=== PATIENT | female | born 1950 | race Caucasian/White ===

== ENCOUNTER → 2016-08-02 | Outpatient (CLI) | payer BC ==
[~2016-08-02] MED LIST: ASCA500 PO; B-COCAP2 PO; CHOL100010 PO; CHOL1CAP95 PO; CLON0.5T3 PO; CLTP PO; CRAN1CAP15 PO; CYAN3INJ; CYM60 PO; DICL1GEL12 TOP; GLAT1INJ INJ; LEVO125T4 PO; LYR50 PO; METH1CAP20 PO; METR0.754 TOP; MIRA1TAB3 PO; MULT-506 PO; RTL10 PO; SPIR50TA3 PO; [UNRECOGNIZED DRUG - REMARK] PO
== END | disposition home or self-care (01) ==
LOC: C.LABMFLN 09:13
PROVIDERS: ATTEND Internal Medicine
DX: E53.8 Deficiency of other specified B group vitamins (principal)

== ENCOUNTER → 2016-09-16 | Outpatient (CLI) | payer BC ==
--- NOTE | 2016-09-16 10:31 | DIAGNOSTIC IMAGING REPORT ---
THYROID ULTRASOUND HISTORY: Thyroid nodule. COMPARISON: Thyroid ultrasound 09/26/2015. FINDINGS: Right lobe: 4.3 x 1.4 x 1.2 cm. There are 3 hypoechoic nodules with the largest in the upper pole measuring 7 x 6 mm. Left lobe: 4.1 x 1.4 x 1.2 cm. There are 3 hypoechoic nodules/cysts with the largest in the interpolar region measuring 8 x 6 x 5 mm. Isthmus: 2 mm in thickness No nodules. IMPRESSION: Slight decrease in size in the 8 x 6 x 5 mm hypoechoic nodule within the left thyroid lobe. Remaining subcentimeter thyroid nodules remain unchanged. Electronically signed by: Thomas Jhaveri M.D. 09/16/2016 10:30 AM Dictated Date/Time: 09/16/2016 10:27 AM
== END | disposition home or self-care (01) ==
LOC: C.ULTR 09:33
PROVIDERS: ATTEND Internal Medicine
DX: E04.2 Nontoxic multinodular goiter (principal)

== ENCOUNTER → 2016-09-20 | Outpatient (CLI) | payer BC ==
[~2016-09-20] MED LIST changes: +OPTIRAY 320 IV PRN
--- NOTE | 2016-09-20 11:03 | DIAGNOSTIC IMAGING REPORT ---
CHEST CTA for PULMONARY ARTERIES CT DOSE: 575.03 mGy.cm HISTORY: Chest pain dyspnea TECHNIQUE: Multiaxial CT images of the chest were performed following the intravenous administration of contrast to evaluate the pulmonary arteries. Maximal intensity projection images were also obtained. COMPARISON STUDY: None. FINDINGS: There is a normal caliber thoracic aorta with no evidence for dissection. There is no evidence for pulmonary embolus. No pleural effusions. No pneumothorax. The liver and spleen are unremarkable. No mediastinal or hilar lymphadenopathy. The central airways are patent. The lungs are clear. IMPRESSION: No evidence for pulmonary embolus. Electronically signed by: Jordan Amador M.D. 09/20/2016 11:01 AM Dictated Date/Time: 09/20/2016 11:00 AM
== END | disposition home or self-care (01) ==
LOC: C.CTS 10:20
PROVIDERS: ATTEND Internal Medicine
DX: I26.99 Other pulmonary embolism without acute cor pulmonale (principal)

== ENCOUNTER → 2016-09-27 | Outpatient (CLI) | payer BC ==
[~2016-09-27] MED LIST changes: -OPTIRAY 320 IV PRN
--- NOTE | 2016-09-28 08:02 | MAMMOGRAPHY REPORT ---
BILATERAL DIGITAL SCREENING MAMMOGRAM TOMOSYNTHESIS WITH CAD: 09/27/2016 CLINICAL HISTORY: Routine screening examination. TECHNIQUE: Breast tomosynthesis in addition to standard 2D mammography was performed. Current study was also evaluated with a Computer Aided Detection (CAD) system. COMPARISON: Comparison is made to exams dated: 09/25/2015 mammogram, 08/14/2013 mammogram, 09/24/2014 ma mmogram, 08/01/2012 mammogram, 07/27/2011 mammogram, and 07/07/2010 mammogram - [facility]ter. BREAST COMPOSITION: There are scattered areas of fibroglandular density in both breasts. FINDINGS: There are stable benign coarse calcifications bilaterally. A stable oval circumscribed 14 mm mass with associated coarse calcification in the upper outer posterior left breast is unchanged in size dating back to at least 2006, most likely a degenerating fibroadenoma. No new suspicious ma ss, architectural distortion or cluster of microcalcifications is seen. IMPRESSION: ACR BI-RADS CATEGORY 1: NEGATIVE There is no mammographic evidence of malignancy. A 1 year screening mammogram is recommended. The p atient will receive written notification of the results. Approximately 10% of breast cancers are not detected with mammography. A negative mammographic repor t should not delay biopsy if a clinically suggestive mass is present. Marilynn Plascencia M.D. ay/:09/27/2016 21:36:44 Sales Effectiveness Manager: Sheeba ESPINOZA)(Dru), [facility] letter sent: Normal 1/2 BI-RADS Code: ACR BI-RADS Category 1: Negative
== END | disposition home or self-care (01) ==
LOC: C.MAMM 10:43
PROVIDERS: ATTEND Obstetrics & Gynecology
DX: Z12.31 Encounter for screening mammogram for malignant neoplasm of breast (principal)

== ENCOUNTER → 2016-11-08 | Outpatient (CLI) | payer BC ==
[~2016-11-08] MED LIST changes: -LEVO125T4 PO; +LEVO125T5 PO
[2016-11-08 15:00] LABS: BASO % 0.2 %; BASO ABS # 0.01 K/uL (0-0.2); COMPLETE YES; EOS % 1.1 %; HEMATOCRIT 40.2 % (37-47); IG% 0.2 %; LYMPH % 19.6 %; LYMPH ABS # 1.21 K/uL (1.2-3.4); MEAN CELL VOLUME 93.9 fL (80-100); MEAN CORPUSCULAR HEMOGLOBIN 31.8 pg (25-34); MEAN CORPUSCULAR HGB CONC 33.8 g/dl (32-36); MEAN PLATELET VOLUME 13.3 fL (7.4-10.4); MONO % 6.5 %; NEUT % 72.4 %; PLATELET COUNT 178 K/uL (130-400); RED BLOOD COUNT 4.28 M/uL (4.2-5.4); WHITE BLOOD COUNT 6.18 K/uL (4.8-10.8)
[2016-11-08 15:45] LABS: ALT/SGPT 33 U/L (12-78); AST/SGOT 22 U/L (15-37); BLOOD UREA NITROGEN 14 mg/dl (7-18); BUN/CREATININE RATIO 18.4 (10-20); CALCIUM 8.4 mg/dl (8.5-10.1); CARBON DIOXIDE 25 mmol/L (21-32); CHLORIDE 112 mmol/L (98-107); CREATININE 0.74 mg/dl (0.60-1.20); GLUCOSE 157 mg/dl (70-99); POTASSIUM 3.6 mmol/L (3.5-5.1); SODIUM 147 mmol/L (136-145)
[2016-11-08 15:55] LABS: ALB/GLOB RATIO 1.3 (0.9-2); ALKALINE PHOSPHATASE 79 U/L (45-117)
== END | disposition home or self-care (01) ==
LOC: C.LAB1850 14:03
PROVIDERS: ATTEND Internal Medicine
DX: E03.9 Hypothyroidism, unspecified (principal); G62.9 Polyneuropathy, unspecified; I82.409 Acute embolism and thrombosis of unspecified deep veins of unspecified lower extremity; E55.9 Vitamin D deficiency, unspecified

== ENCOUNTER → 2016-12-13 | Outpatient (CLI) | payer BC | END | disposition home or self-care (01) | LOC: C.LABSPEC 13:21 | PROVIDERS: ATTEND Obstetrics & Gynecology | DX: N76.0 Acute vaginitis (principal) ==

== ENCOUNTER → 2017-01-14 | Outpatient (CLI) | payer BC ==
--- NOTE | 2017-01-14 10:40 | DIAGNOSTIC IMAGING REPORT ---
THORACIC SPINE 3 VIEWS HISTORY: Upper back pain. COMPARISON: Chest CT 09/20/2016. FINDINGS: No fracture or subluxation within the thoracic spine. Paraspinal soft tissues are unremarkable. Anterior cervical spine fusion hardware is again noted. Mild degenerative disc disease within the mid to lower thoracic spine, unchanged. IMPRESSION: No fracture or subluxation within the thoracic spine. Electronically signed by: Thomas Jhaveri M.D. 01/14/2017 10:39 AM Dictated Date/Time: 01/14/2017 10:36 AM
== END ==
LOC: C.RAD1850 10:13
PROVIDERS: ATTEND Internal Medicine
DX: M54.6 Pain in thoracic spine (principal)

== ENCOUNTER → 2017-01-19 | Outpatient (CLI) | payer BC ==
[~2017-01-19] MED LIST changes: +LEVO125T4 PO; -LEVO125T5 PO
--- NOTE | 2017-01-19 12:12 | DIAGNOSTIC IMAGING REPORT ---
BACK/CHEST ULTRASOUND CLINICAL HISTORY: Thoracic back pain. Painful lump. COMPARISON STUDY: Chest CT September 20, 2016. TECHNIQUE: Sonography of the lower back was performed at site of maximal pain and palpable abnormality. FINDINGS: No sonographic abnormality was identified at site of maximal pain. Specifically, no mass, fluid collection or other sonographic abnormality was identified. IMPRESSION: No sonographic abnormality to correspond to the site of maximal pain. Electronically signed by: Ruben Austin M.D. 01/19/2017 12:10 PM Dictated Date/Time: 01/19/2017 12:09 PM
== END | disposition home or self-care (01) ==
LOC: C.ULTRBC 11:16
PROVIDERS: ATTEND Internal Medicine
DX: M54.6 Pain in thoracic spine (principal)

== ENCOUNTER → 2017-02-18 | Outpatient (CLI) | payer BC ==
--- NOTE | 2017-02-18 14:56 | DIAGNOSTIC IMAGING REPORT ---
BONE SCAN WHOLE BODY CLINICAL HISTORY: Diffuse joint pain. Thoracic back pain. Multiple sclerosis. Arthritis. COMPARISON STUDY: Thoracic spine radiographs January 14, 2017. TECHNIQUE: 26.7 mCi of technetium 99m MDP was injected IV at 11:15 AM on February 18, 2017. 3 hours following injection, whole body imaging was performed in the anterior and posterior projections. FINDINGS: Expected soft tissue and renal activity is present. Marked focal uptake within the right first metatarsophalangeal joint is degenerative. Moderate uptake within the left first metatarsophalangeal joint is likely degenerative. Uptake within the left knee is degenerative. A right knee arthroplasty is noted. Moderate uptake within the shoulders, right greater than left, is degenerative. There is minimal uptake within the thoracic and lumbar spines which is likely degenerative. No suspicious radiotracer uptake is identified. Uptake projecting over the perineum is likely due to urine leakage. IMPRESSION: 1. Multifocal radiotracer uptake suggestive of osteoarthritis involving the bilateral first metatarsophalangeal joints, shoulders and left knee. 2. Minimal thoracic and lumbar spine uptake is degenerative. No significant abnormal radiotracer uptake within the spine. Electronically signed by: Ruben Austin M.D. 02/18/2017 2:54 PM Dictated Date/Time: 02/18/2017 2:50 PM
== END | disposition home or self-care (01) ==
LOC: C.NUCL 10:57
PROVIDERS: ATTEND Internal Medicine
DX: G35 Multiple sclerosis (principal); M19.90 Unspecified osteoarthritis, unspecified site; M47.816 Spondylosis without myelopathy or radiculopathy, lumbar region; M54.6 Pain in thoracic spine

== ENCOUNTER → 2017-03-03 | Outpatient (CLI) | payer BC ==
--- NOTE | 2017-03-03 12:39 | DIAGNOSTIC IMAGING REPORT ---
LEFT LOWER EXT JOINT WITHOUT CLINICAL HISTORY: 66 years-old Female with chronic left-sided hip pain for multiple years. No reported trauma. COMPARISON: Bone scan 02/18/2017, CT abdomen and pelvis 03/17/2011, hip radiographs 05/25/2009. TECHNIQUE: Multiplanar, multi sequence MRI of the left hip was performed without intravenous contrast. FINDINGS: Large field view telephone clerk images demonstrate fusion hardware at the L3-L4 level. No gross abnormality of the abdomen or pelvis is identified. LABRUM: There is a tear of the anterior superior labrum on the left without definite labral cyst, nicely demonstrated on image 13 of the coronal T2 series and image 12 of the coronal PD small [id number]. No definite tear of the right labrum is identified. BONE MARROW: There is mild bone marrow edema noted involving the superolateral acetabulum adjacent to the labral tear, likely reactive. No associated fracture. There is heterogeneity of the bone marrow involving the pelvis and bilateral femora, likely sequela of osteoporosis. No suspicious bone lesions or fractures are identified. BURSAE: There is moderate to extensive amount of edema and fluid adjacent to the right greater trochanter compatible with trochanteric bursitis. Trace edema is noted adjacent to the left greater trochanter, likely reactive changes. No definite gluteal tendon tear is identified. No evidence of iliopsoas bursitis. HIP JOINT: Moderate osteoarthritis involves the bilateral femoral acetabular joints with joint space narrowing and mild marginal spurring. Mild cartilaginous thinning is also seen bilaterally. Physiologic amount of fluid is seen within the bilateral hip joints. No definite articular loose body. There is no evidence for femoral-acetabular or ischiofemoral impingement syndrome. MUSCLES: Muscular signal and morphology is within normal limits. There is thickening of the common hamstring attachment sites bilaterally with intermediate T2 signal compatible with tendinosis without high-grade tear. SCIATIC NERVE: The morphology and signal characteristics of the sciatic nerve appear normal. IMPRESSION: 1. 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 Likely reactive associated mild bone marrow edema involves the left superior lateral acetabulum without fracture. 2. Moderate to extensive right trochanteric bursitis. 3. Mild peritendinous edema is noted adjacent to the left greater trochanter, likely reactive. The above report was generated using voice recognition software. It may contain grammatical, syntax or spelling errors. Electronically signed by: Huey Salguero M.D. 03/03/2017 12:37 PM Dictated Date/Time: 03/03/2017 12:23 PM
== END | disposition home or self-care (01) ==
LOC: C.MRI 11:06
PROVIDERS: ATTEND Orthopaedic Surgery
DX: M25.552 Pain in left hip (principal); M16.0 Bilateral primary osteoarthritis of hip; M70.61 Trochanteric bursitis, right hip

== ENCOUNTER → 2017-04-19 | Outpatient (CLI) | payer BC ==
--- NOTE | 2017-04-19 17:20 | DIAGNOSTIC IMAGING REPORT ---
MRI LUMBAR SPINE W/O CONTRAST CLINICAL HISTORY: Low back pain with bilateral leg radiculopathy. TECHNIQUE: Sagittal and axial T1, T2 and STIR images were obtained. COMPARISON STUDY: MRI performed February 10, 2010 OBSERVATIONS: The vertebral bodies and posterior elements appear intact. There is no abnormal bony signal present to suggest a marrow replacement process. There is artifact secondary to a posterior spinal fusion performed at the L3-4 level. L1-2: No disc protrusions or extrusions. No evidence of spinal canal or neural foraminal compromise. There is a T2 bright right renal lesion, statistically representing a cyst. L2-3: There is a circumferential disc bulge with mild to moderate spinal stenosis, most pronounced just inferior to the disc level.. There is no significant foraminal narrowing. L3-4: There are postsurgical changes at this level. There is artifact secondary to a posterior spinal fusion with L3 and L4 pedicle screws. L4-5: There are postsurgical changes of a discectomy and interbody fusion. There are postlaminectomy changes. There is no recurrent disc herniation. There is no spinal stenosis at the disc level itself. Just superior to the disc level there is mild spinal canal narrowing due to facet joint arthropathy L5-S1: No disc protrusions or extrusions. No evidence of spinal canal or neural foraminal compromise. The conus medullaris and cauda equina appear normal. IMPRESSION: 1. Interval surgery at the L3-4, and L4-5 levels. 2. L2-3 disc bulge with ligamentous hypertrophy and mild to moderate spinal stenosis, most pronounced just inferior to the disc itself.. Electronically signed by: Deny June M.D. 04/19/2017 5:19 PM Dictated Date/Time: 04/19/2017 5:12 PM
== END | disposition home or self-care (01) ==
LOC: C.MRIBC 16:05
PROVIDERS: ATTEND Orthopaedic Surgery Orthopaedic Surgery of the Spine
DX: M51.26 Other intervertebral disc displacement, lumbar region (principal); M51.36 Other intervertebral disc degeneration, lumbar region; M48.06 Spinal stenosis, lumbar region

== ENCOUNTER → 2017-04-22 | Outpatient (CLI) | payer BC ==
--- NOTE | 2017-04-22 10:42 | DIAGNOSTIC IMAGING REPORT ---
MRI OF THE BRAIN WITHOUT AND WITH IV CONTRAST CLINICAL HISTORY: Multiple sclerosis COMPARISON STUDY: 12/06/2015 TECHNIQUE: MRI of the brain was performed from the vertex to the skull base utilizing various T1 and T2 weighted sequences. Following the IV administration of 10 mL of Gadavist contrast, additional enhanced images were obtained. FINDINGS: Sagittal T1, axial diffusion, proton density and T2 weighted axial, coronal FLAIR, and pre and post axial T1-weighted images were acquired. These were supplemented with post gadolinium coronal T1 weighted images. No intra or extra-axial mass lesions are visualized. Axial diffusion-weighted images reveal no evidence of acute or subacute infarction. There is no evidence of ventricular dilatation. Proton density T2-weighted and FLAIR images reveal scattered nonspecific foci of increased T2 signal and FLAIR signal within the white matter. The findings remain similar to the preceding examination. There are no abnormal flow voids. There is no evidence of pathologic enhancement. IMPRESSION: 1. No significant change compared the preceding study 2. No evidence of intracranial mass 3. No evidence of acute or subacute infarction 4. Stable nonspecific foci of increased T2 and FLAIR signal within the white matter. While the lesions may be secondary to multiple sclerosis given the clinical history, small vessel ischemic change could appear similar. Electronically signed by: Deny June M.D. 04/22/2017 10:41 AM Dictated Date/Time: 04/22/2017 10:36 AM
--- NOTE | 2017-04-22 10:48 | DIAGNOSTIC IMAGING REPORT ---
CERVICAL SPINE COMBO CLINICAL HISTORY: 66 years-old Female presenting with MS. TECHNIQUE: Multisequence, multiplanar MR imaging of the cervical spine was performed before and after the administration of intravenous contrast. IV contrast: 10 mL of Gadavist. COMPARISON: 04/07/2016. FINDINGS: Localizer images: Unremarkable. Normal cervical lordosis. Anterior cervical discectomy and fusion at C5-6 with interbody spacer. This is unchanged in appearance from prior. Nonoperative levels demonstrate normal vertebral body heights, alignment, and bone marrow signal intensity. Intervertebral discs at the nonoperative levels are preserved although small disc osteophyte complexes are noted at C3-4, C4-5, C6-7, and T2-3. Degenerative changes further detailed below: C2-3: No significant spinal canal or neural foraminal narrowing. C3-4: Mild left neural foraminal narrowing secondary to uncovertebral hypertrophy and disc osteophyte complex. No significant spinal canal narrowing. C4-5: Mild effacement of the ventral thecal sac secondary to the disc osteophyte complex. No significant spinal canal or neural foraminal narrowing. Minimal abnormal signal intensity at the spinal cord at this level is grossly unchanged. C5-6: No significant spinal canal or neural foraminal narrowing. Left eccentric abnormal spinal cord signal intensity along the posterior lateral aspect, unchanged. C6-7: No significant spinal canal or neural foraminal narrowing. The spinal cord at this level demonstrates minimal atrophy with increased signal intensity predominantly along the paramedian posterior aspect, unchanged from prior. C7-T1: No significant spinal canal or neural foraminal narrowing. No abnormal spinal cord enhancement. Previously noted enhancing mass along the right aspect of the spinal cord at C2-3 is intradural extra medullary and unchanged in size from prior. Paraspinal soft tissues demonstrate mild interspinous edema at C5-6 and C6-7, likely indicating degenerative change or sprain. IMPRESSION: 1. No new abnormal spinal cord signal intensity. Stable multifocal white matter lesions in the cervical spinal cord as on prior exam. No enhancement to suggest active demyelination. 2. Postsurgical changes of anterior cervical discectomy and fusion at C5-6. 3. Mild multilevel degenerative changes with mild left neural foraminal narrowing at C3-4. No significant spinal canal stenosis. 4. Stable appearance of the intradural, extramedullary mass along the right aspect of the spinal cord at C2-3. This is unchanged since 2008 and most likely represents a small meningioma or schwannoma. Electronically signed by: Wilbur River M.D. 04/22/2017 10:47 AM Dictated Date/Time: 04/22/2017 10:36 AM
== END | disposition home or self-care (01) ==
LOC: C.MRIBC 08:44
PROVIDERS: ATTEND Psychiatry & Neurology Neurology
DX: G35 Multiple sclerosis (principal); G95.9 Disease of spinal cord, unspecified

== ENCOUNTER → 2017-06-07 | Outpatient (CLI) | payer BC ==
[~2017-06-07] MED LIST changes: -LEVO125T4 PO; +LEVO125T5 PO
== END | disposition home or self-care (01) ==
LOC: C.LABBC 11:20
PROVIDERS: ATTEND Obstetrics & Gynecology
DX: N64.52 Nipple discharge (principal)

== ENCOUNTER → 2017-06-14 | Outpatient (CLI) | payer BC ==
--- NOTE | 2017-06-14 14:31 | MAMMOGRAPHY REPORT ---
UNILATERAL LEFT DIGITAL DIAGNOSTIC MAMMOGRAM TOMOSYNTHESIS WITH CAD AND TARGETED LEFT ULTRASOUND: CLINICAL HISTORY: The patient reports that her left nipple is intermittently inverted. She also repo rts an episode of cream-colored, crusty left nipple discharge with a drop of blood also noted approxi mately 1.5 weeks ago. Her prolactin level was tested and was normal. She has had no further episode s of nipple discharge. TECHNIQUE: Breast tomosynthesis in addition to standard 2D mammography was performed. Current study was also evaluated with a Computer Aided Detection (CAD) system. Left CC and MLO 2-D and tomosynthes is images and spot magnification left CC and ML views were obtained. COMPARISON: Comparison is made to exams dated: 09/27/2016 mammogram, 09/25/2015 mammogram, 09/24/2014 mamm ogram, 08/14/2013 mammogram, 08/01/2012 mammogram, and 07/27/2011 mammogram - [facility] . BREAST COMPOSITION: There are scattered areas of fibroglandular density in the left breast. FINDINGS: There are no suspicious masses, calcifications, or areas of architectural distortion noted in the left breast. There has been no significant interval change compared to prior exams. Scattere d benign-appearing left breast calcifications are not significantly changed. A benign-appearing circ umscribed mass with associated coarse calcifications in the left upper outer quadrant is stable and c ompatible with a degenerating fibroadenoma. Spot magnification views of the subareolar breast demons trate no suspicious masses or calcifications. Targeted ultrasound was performed of the left subareolar breast. No intraductal mass or other suspic ious sonographic abnormality is evident. IMPRESSION: ACR BI-RADS CATEGORY 2: BENIGN, TARGETED ULTRASOUND ACR BI-RADS CATEGORY 2: BENIGN No intraductal mass or other mammographic or sonographic abnormality seen within the left subareolar breast. There is no mammographic or targeted sonographic evidence of malignancy. Recommend clinical follow-up for left nipple discharge and intermittent left nipple inversion; if the patient has contin ued nipple discharge, consider cytologic analysis of the nipple discharge or surgical consultation. Return to annual mammogram screening schedule is also recommended, due September 2017. The patient has been verbally notified of the results. Approximately 10% of breast cancers are not detected with mammography. A negative mammographic report should not delay biopsy if a clinically suggestive mass is present. Lucero Juares M.D. ah/:06/14/2017 11:57:35 Electric Plater: Shayy ESPINOZA)(Dru), [facility] letter sent: Normal 1/2 BI-RADS Code: ACR BI-RADS Category 2: Benign Ultrasound BI-RADS: ACR BI-RADS Category 2: Benign
== END | disposition home or self-care (01) ==
LOC: C.MAMM 10:20
PROVIDERS: ATTEND Obstetrics & Gynecology
DX: N64.59 Other signs and symptoms in breast (principal); N64.52 Nipple discharge

== ENCOUNTER → 2017-08-01 | Outpatient (CLI) | payer BC | END | disposition home or self-care (01) | LOC: C.LABSPEC 17:12 | PROVIDERS: ATTEND Obstetrics & Gynecology | DX: N76.0 Acute vaginitis (principal) ==

== ENCOUNTER 2017-09-25 13:24 | Emergency (ER) | payer BC ==
[~2017-09-25] VITALS: Ht 170.2 cm; Wt 109.0 kg
[2017-09-25 13:39] VITALS: TEMP 36.5; Ht 170.2 cm; Wt 109.0 kg
[2017-09-25 14:19] LABS: BASO % 0.2 %; BASO ABS # 0.01 K/uL (0-0.2); EOS % 0.8 %; EOS ABS # 0.04 K/uL (0-0.5); HEMATOCRIT 44.4 % (37-47); HEMOGLOBIN 15.1 g/dL (12.0-16.0); IG# 0.01 K/uL (0.00-0.02); LYMPH % 21.7 %; LYMPH ABS # 1.15 K/uL (1.2-3.4); MEAN CELL VOLUME 93.7 fL (80-100); MEAN CORPUSCULAR HEMOGLOBIN 31.9 pg (25-34); MEAN PLATELET VOLUME 12.1 fL (7.4-10.4); MONO % 9.2 %; MONO ABS # 0.49 K/uL (0.11-0.59); NEUT % 67.9 %; PLATELET COUNT 200 K/uL (130-400); RED CELL DISTRIBUTION WIDTH CV 14.1 % (11.5-14.5)
[2017-09-25 14:34] LABS: ALBUMIN 3.7 gm/dl (3.4-5.0); CALCIUM 8.9 mg/dl (8.5-10.1); CREATININE 0.84 mg/dl (0.60-1.20); POTASSIUM 3.8 mmol/L (3.5-5.1)
[2017-09-25 14:46] LABS: PTT PATIENT 28.7 SECONDS (21.0-31.0)
[2017-09-25] MEDS ORDERED: CRAN400C PO (14:50)
[2017-09-25] MEDS ORDERED: MIRA1TAB3 PO (14:50)
[2017-09-25] MEDS ORDERED: NYST1POW7 TOP (14:50)
[2017-09-25] MEDS ORDERED: PREG200C PO (14:50)
[2017-09-25] MEDS ORDERED: CLON1TAB3 PO (14:50)
[2017-09-25] MEDS ORDERED: TURM1CAP4 PO (14:50)
[2017-09-25] MEDS ORDERED: CHOL2000 PO (14:50)
[2017-09-25] MEDS ORDERED: MAGN400T6 PO (14:50)
[2017-09-25] MEDS ORDERED: B-COTAB18 PO (14:50)
[2017-09-25] MEDS ORDERED: CALC-354 PO (14:50)
[2017-09-25] MEDS ORDERED: CYNI1000 IM (14:50)
[2017-09-25] MEDS ORDERED: ESTCR PV (14:50)
[2017-09-25] MEDS ORDERED: RIVA1TAB4 PO (14:50)
[2017-09-25] MEDS ORDERED: AMPH30CA3 PO (14:50)
[2017-09-25] MEDS ORDERED: ERGO500011 PO (14:50)
[2017-09-25] MEDS ORDERED: ESCI1TAB10 PO (14:50)
--- NOTE | 2017-09-25 15:05 | DIAGNOSTIC IMAGING REPORT ---
ULTRASOUND LEFT LOWER EXTREMITY VENOUS CLINICAL HISTORY: Left calf pain and swelling. COMPARISON STUDY: Left lower extremity venous ultrasound dated 02/26/2016. TECHNIQUE: Real-time, grayscale, and color Doppler sonography of the deep veins of the left lower extremity was performed from the inguinal crease to the calf. Compression and augmentation were utilized. FINDINGS: There is no sonographic evidence of deep venous thrombosis identified in the left lower extremity. The common femoral, superficial femoral, and popliteal veins are patent and normally compressible. The greater saphenous vein and the profunda femoris vein at the junction with the common femoral vein are clear. The visualized calf veins are patent. IMPRESSION: There is no sonographic evidence of deep venous thrombosis identified in the left lower extremity. Electronically signed by: Gerard Mccarty M.D. 09/25/2017 3:04 PM Dictated Date/Time: 09/25/2017 3:04 PM
--- NOTE | 2017-09-25 15:25 | EMERGENCY ROOM VISIT NOTE ---
ED Visit Note First contact with patient: 13:45 CHIEF COMPLAINT: Left calf swelling and pain, "I might have a blood clot" HISTORY OF PRESENT ILLNESS: This 66-year-old female patient presents to the emergency department, ambulatory, complaining of pain in her posterior left calf. The patient states the pain is associated with swelling and one specific area. She does report a history of phlebitis with deep vein thrombosis and multiple massive pulmonary emboli in 2016. The patient states she did not notice the pain or swelling yesterday while shaving her legs, but noticed that this morning upon awakening. The patient states the swelling is new and different than normal swelling she experiences in her legs associated with phlebitis. The patient does report some mild erythema, but is uncertain if this is due to her chronic edema or new. She describes the swelling is different than when she experienced the DVT in her popliteal vein. She states that DBT felt ropelike, and this swelling is wider and more painful to the touch. She denies any open wounds or recent injury to the area. She rates her pain sharp to the touch and 3/10. She denies any chest pain, difficulty breathing, significant leg swelling, inability to ambulate, recent illness, or other associated symptoms. The patient is currently on Xarelto. She states she did recently travel to the [facility], but did stop at least once in the [address]. She is not currently on any hormone therapy. REVIEW OF SYSTEMS: A 10 system review of systems was performed with positives and pertinent negatives listed in the history of present illness. All other systems were reviewed and are negative. ALLERGIES: Adhesives, morphine, oxycodone, tetracycline, loratadine, ropinirole , sulfa PMH: DVT, PE, anxiety, hypothyroidism SOCIAL HISTORY: The patient lives locally with family. She denies drug, alcohol , tobacco use. PHYSICAL EXAM: VITALS: Vitals are noted on the nurse's note and reviewed by myself. Vital signs stable. GENERAL: This is a 66-year-old obese white female, in no acute distress, nondiaphoretic, well-developed well-nourished. SKIN: Soft tissue swelling in the posterior left calf measuring approximately 5 cm in length by 3 cm in width. This area is not erythematous. It is not fluctuant or indurated. There is no drainage noted. The skin was without rashes or bruising. There is no tenting of the skin. Capillary reflex less than 2 seconds. HEAD: Normocephalic atraumatic. EARS: External auditory canals clear, tympanic membranes pearly conley without erythema or effusion bilaterally. EYES: Pupils equal round and reactive to light and accommodation. Conjunctivae without injection, sclerae without icterus. Extraocular movements intact. NOSE: Patent, turbinates without inflammation or discharge. No sinus tenderness. MOUTH: Mucous membranes moist. Tonsils are not enlarged. Pharynx without erythema or exudate. Uvula midline. Airway patent. Tongue does not deviate. NECK: Supple without nuchal rigidity. No lymphadenopathy. No thyromegaly. Cervical spine is nontender. No JVD. HEART: Regular rate and rhythm without murmurs gallops or rubs. LUNGS: Clear to auscultation bilaterally without wheezes, rales or rhonchi. No dullness to percussion. No retractions or accessory muscle use. ABDOMEN: Positive bowel sounds x 4. Normal tympanic percussion. Soft, nontender, without masses or organomegaly. Kelley sign negative. No guarding or rebound tenderness. MUSCULOSKELETAL: Edema of bilateral lower extremities. There is some mild erythema diffusely over the posterior left calf. There is also erythema in the posterior right calf. Possibly Left slightly greater than right. No muscle atrophy noted. Full range of motion without joint tenderness in all extremities. Tenderness to palpation of the left posterior calf in the area of the soft swelling noted. Normal gait. Strength 5/5 throughout. NEURO: Patient was alert and oriented to person place and time. Normal sensation to light and sharp touch. Deep tendon reflexes 2+ throughout. No focal neurological deficits. RADIOLOGY: ULTRASOUND LEFT LOWER EXTREMITY VENOUS CLINICAL HISTORY: Left calf pain and swelling. COMPARISON STUDY: Left lower extremity venous ultrasound dated 02/26/2016. TECHNIQUE: Real-time, grayscale, and color Doppler sonography of the deep veins of the left lower extremity was performed from the inguinal crease to the calf. Compression and augmentation were utilized. FINDINGS: There is no sonographic evidence of deep venous thrombosis identified in the left lower extremity. The common femoral, superficial femoral, and popliteal veins are patent and normally compressible. The greater saphenous vein and the profunda femoris vein at the junction with the common femoral vein are clear. The visualized calf veins are patent. IMPRESSION: There is no sonographic evidence of deep venous thrombosis identified in the left lower extremity. Electronically signed by: Gerard Mccarty M.D. 09/25/2017 3:04 PM Dictated Date/Time: 09/25/2017 3:04 PM EMERGENCY DEPARTMENT COURSE: The patient was seen and evaluated as above. IV access obtained and labs drawn. Ultrasound of the left lower extremity performed and reviewed by myself and radiologist as above. I discussed the findings of all testing with the patient at bedside. Labs without significant abnormalities and no DVT noted on the left lower extremity. I suspect a possible flareup of her phlebitis or early infectious cause of the swelling. Discharge instructions reviewed, the patient was discharged home in good condition. I did discuss the case with my attending. I attest that I have personally reviewed the patient's current medication list. Patient was found to have normal blood pressure on screening and does not require follow-up. Etiologies such as DVT, joint effusion, infection, trauma, muscular, lymphedema , idiopathic, CHF, as well as others were entertained. DIAGNOSIS: Left lower extremity swelling and pain Problem List Medical Problems: (1) Anemia, unspecified Status: Chronic (2) Chronic cystitis Status: Chronic (3) Esophageal reflux Status: Chronic (4) Hyperlipidemia Status: Chronic (5) Hypothyroidism, unspecified Status: Chronic (6) MS (multiple sclerosis) Status: Chronic (7) Thrombophlebitis leg Status: Resolved Surgical Problems: (1) H/O gastric bypass Status: Resolved (2) History of knee replacement Status: Resolved Current/Historical Medications Scheduled Amphetamine-Dextroamphetamine 30MG (Adderall Xr 30MG), 30 MG PO DAILY Ascorbic Acid (Vitamin C), 500 MG PO DAILY B-Complex Vitamins (Vitamin B Complex), 1 TAB PO DAILY Calcium Carbonate-Cholecalcife (Caltrate 600+D), 1 TAB PO TID Cholecalciferol (Vitamin D3), 2,000 UNITS PO DAILY Clonazepam (Klonopin), 1 MG PO HS Cranberry (Vaccinium Macrocarp (Cranberry), 1 CAP PO DAILY Cyanocobalamin (Cyanocobalamin), 1,000 MCG IM MONTHLY Ergocalciferol (Vitamin D 29485 Unit), 50,000 UNITS PO WK Escitalopram Oxalate (Lexapro), 20 MG PO DAILY Estradiol Vaginal (Estrace), 1 GM PV 2XWK Glatiramer Acetate (Copaxone), 40 MG INJ 3XWK Levothyroxine Sodium (Levothyroxine Sodium), 125 MCG PO QAM Magnesium Oxide (Mag-Ox), 400 MG PO DAILY Mirabegron (Myrbetriq Er), 50 MG PO DAILY Multivitamin (Multivitamin), 1 TAB PO QAM Nystatin (Topical) (Nystatin), 1 APPLN TOP TID Pregabalin (Lyrica), 200 MG PO DAILY Rivaroxaban (Xarelto), 20 MG PO DAILY Turmeric (Curcuma Longa) (Turmeric), 1 CAP PO BID Allergies Coded Allergies: Adhesives (Verified Allergy, Intermediate, TAPE-ITCHINESS, REDNESS OF SKIN , 09/25/17) Morphine (Verified Allergy, Intermediate, RASH,ITCHING, 09/25/17) Oxycodone (Verified Allergy, Mild, RASH/ITCH, 09/25/17) Loratadine (Verified Allergy, Unknown, UNKNOWN, 09/25/17) Ropinirole (Verified Allergy, Unknown, Unknown, 09/25/17) Per records; patient denies Sulfa Antibiotics (Verified Allergy, Unknown, UNKNOWN, 09/25/17) Tetracycline (Verified Allergy, Unknown, ANAPHYLAXIS, 09/25/17) Vital Signs Date Time Temp Pulse Resp B/P (MAP) Pulse Ox O2 Delivery O2 Flow Rate FiO2 09/25/17 15:37 71 18 138/84 98 09/25/17 13:39 36.5 85 18 118/79 98 Room Air Laboratory Results 09/25/17 14:07 Red Blood Count 4.74, Mean Corpuscular Volume 93.7, Mean Corpuscular Hemoglobin 31.9, Mean Corpuscular Hemoglobin Concent 34.0, Mean Platelet Volume 12.1, Neutrophils (%) (Auto) 67.9, Lymphocytes (%) (Auto) 21.7, Monocytes (%) (Auto) 9.2, Eosinophils (%) (Auto) 0.8, Basophils (%) (Auto) 0.2, Neutrophils # (Auto) 3.60, Lymphocytes # (Auto) 1.15, Monocytes # (Auto) 0.49, Eosinophils # (Auto) 0.04, Basophils # (Auto) 0.01 09/25/17 14:07 Test 09/25/17 14:07 White Blood Count 5.30 K/uL (4.8-10.8) Red Blood Count 4.74 M/uL (4.2-5.4) Hemoglobin 15.1 g/dL (12.0-16.0) Hematocrit 44.4 % (37-47) Mean Corpuscular Volume 93.7 fL (80-100) Mean Corpuscular Hemoglobin 31.9 pg (25-34) Mean Corpuscular Hemoglobin Concent 34.0 g/dl (32-36) Platelet Count 200 K/uL (130-400) Mean Platelet Volume 12.1 fL (7.4-10.4) Neutrophils (%) (Auto) 67.9 % Lymphocytes (%) (Auto) 21.7 % Monocytes (%) (Auto) 9.2 % Eosinophils (%) (Auto) 0.8 % Basophils (%) (Auto) 0.2 % Neutrophils # (Auto) 3.60 K/uL (1.4-6.5) Lymphocytes # (Auto) 1.15 K/uL (1.2-3.4) Monocytes # (Auto) 0.49 K/uL (0.11-0.59) Eosinophils # (Auto) 0.04 K/uL (0-0.5) Basophils # (Auto) 0.01 K/uL (0-0.2) RDW Standard Deviation 48.0 fL (36.4-46.3) RDW Coefficient of Variation 14.1 % (11.5-14.5) Immature Granulocyte % (Auto) 0.2 % Immature Granulocyte # (Auto) 0.01 K/uL (0.00-0.02) Prothrombin Time 10.9 SECONDS (9.0-12.0) Prothromb Time International Ratio 1.0 (0.9-1.1) Activated Partial Thromboplast Time 28.7 SECONDS (21.0-31.0) Partial Thromboplastin Ratio 1.1 Anion Gap 7.0 mmol/L (3-11) Est Creatinine Clear Calc Drug Dose 82.7 ml/min Estimated GFR () 83.4 Estimated GFR (Non- 71.9 BUN/Creatinine Ratio 20.1 (10-20) Calcium Level 8.9 mg/dl (8.5-10.1) Total Bilirubin 0.4 mg/dl (0.2-1) Aspartate Amino Transf (AST/SGOT) 18 U/L (15-37) Alanine Aminotransferase (ALT/SGPT) 30 U/L (12-78) Alkaline Phosphatase 113 U/L (45-117) Total Protein 7.0 gm/dl (6.4-8.2) Albumin 3.7 gm/dl (3.4-5.0) Globulin 3.3 gm/dl (2.5-4.0) Albumin/Globulin Ratio 1.1 (0.9-2) Departure Information Impression Primary Impression: Swelling of left lower extremity Dispostion Home / Self-Care Condition GOOD Referrals Pro,Lalo Cevallos M.D. (PCP) Patient Instructions My [facility] Additional Instructions You were seen in the emergency department today for left lower extremity swelling. As discussed, ultrasound was negative for DVT. 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 Follow-up in 2-3 days with your primary care provider for reevaluation of the leg. You may wear compression stockings to help with swelling. You may use Tylenol as needed for pain. Please do not exceed 3000 mg per day. Use warm compresses on the leg to help with swelling and pain. Return immediately to the emergency department for any significant redness, swelling, increased pain, difficulty with ambulation, discoloration of the lower extremities, or other concerning symptoms.
[2017-09-25 15:37] VITALS: BP 138/84; PULSE 71; O2SAT 98
== END 2017-09-25 15:37 | disposition home or self-care (01) ==
LOC: C.EDB 13:26 → C.EDD 15:37
DX: R60.0 Localized edema (principal); G35 Multiple sclerosis; D64.9 Anemia, unspecified; K21.9 Gastro-esophageal reflux disease without esophagitis; E78.5 Hyperlipidemia, unspecified; E03.9 Hypothyroidism, unspecified; N30.20 Other chronic cystitis without hematuria; Z86.72 Personal history of thrombophlebitis; Z86.718 Personal history of other venous thrombosis and embolism; Z86.711 Personal history of pulmonary embolism; Z98.84 Bariatric surgery status; Z79.01 Long term (current) use of anticoagulants; Z96.659 Presence of unspecified artificial knee joint; Z91.048 Other nonmedicinal substance allergy status; Z88.6 Allergy status to analgesic agent; Z88.1 Allergy status to other antibiotic agents; Z88.8 Allergy status to other drugs, medicaments and biological substances; Z88.2 Allergy status to sulfonamides; Z88.9 Allergy status to unspecified drugs, medicaments and biological substances

== ENCOUNTER → 2017-09-26 | Outpatient (CLI) | payer BC ==
[~2017-09-26] MED LIST changes: +AMPH30CA3 PO; -B-COCAP2 PO; +B-COTAB18 PO; +CALC-354 PO; -CHOL100010 PO; -CHOL1CAP95 PO; +CHOL2000 PO; -CLON0.5T3 PO; +CLON1TAB3 PO; -CLTP PO; -CRAN1CAP15 PO; +CRAN400C PO; -CYAN3INJ; -CYM60 PO; +CYNI1000 IM; -DICL1GEL12 TOP; +ERGO500011 PO; +ESCI1TAB10 PO; +ESTCR PV; -LYR50 PO; +MAGN400T6 PO; -METH1CAP20 PO; -METR0.754 TOP; +NYST1POW7 TOP; +PREG200C PO; +RIVA1TAB4 PO; -RTL10 PO; -SPIR50TA3 PO; +TURM1CAP4 PO; -[UNRECOGNIZED DRUG - REMARK] PO
== END | disposition home or self-care (01) ==
LOC: C.LABSPEC 17:29
PROVIDERS: ATTEND Urology
DX: R32 Unspecified urinary incontinence (principal); N39.41 Urge incontinence

== ENCOUNTER → 2017-09-28 | Outpatient (CLI) | payer BC ==
--- NOTE | 2017-09-29 08:02 | MAMMOGRAPHY REPORT ---
BILATERAL DIGITAL SCREENING MAMMOGRAM TOMOSYNTHESIS WITH CAD: 09/28/2017 CLINICAL HISTORY: Routine screening. Patient has no complaints. TECHNIQUE: Breast tomosynthesis in addition to standard 2D mammography was performed. Current study was also evaluated with a Computer Aided Detection (CAD) system. COMPARISON: Comparison is made to exams dated: 06/14/2017 ultrasound, 06/14/2017 mammogram, 09/27/2016 mammogram, 09/25/2015 mammogram, 09/24/2014 mammogram, and 08/14/2013 mammogram - [facility] enter. BREAST COMPOSITION: There are scattered areas of fibroglandular density in both breasts. FINDINGS: There is a stable benign circumscribed oval mass with associated coarse calcification in th e upper outer posterior left breast, and a few benign coarse calcifications in the right breast. No suspicious mass, architectural distortion or cluster of microcalcifications is seen. IMPRESSION: ACR BI-RADS CATEGORY 1: NEGATIVE There is no mammographic evidence of malignancy. A 1 year screening mammogram is recommended. The pa tient will receive written notification of the results. Approximately 10% of breast cancers are not detected with mammography. A negative mammographic report should not delay biopsy if a clinically suggestive mass is present. Marilynn Plascencia M.D. ay/:09/28/2017 12:56:50 Manual Control Auger Press Operator: Sheeba Sibley, [facility] letter sent: Normal 1/2 BI-RADS Code: ACR BI-RADS Category 1: Negative
== END | disposition home or self-care (01) ==
LOC: C.MAMM 10:45
PROVIDERS: ATTEND Obstetrics & Gynecology
DX: Z12.31 Encounter for screening mammogram for malignant neoplasm of breast (principal)

== ENCOUNTER → 2017-10-12 | Outpatient (CLI) | payer BC ==
[2017-10-07 17:12] LABS: BLOOD UREA NITROGEN 15 mg/dl (7-18); CREATININE 0.75 mg/dl (0.60-1.20)
[~2017-10-12] MED LIST changes: +GADAVIST IV PRN
--- NOTE | 2017-10-12 14:08 | DIAGNOSTIC IMAGING REPORT ---
BRAIN COMBO FOR MS CLINICAL HISTORY: 67 years-old Female presenting with G35 Multiple sclerosis. TECHNIQUE: Multisequence, multiplanar MR imaging of the brain was performed before and after the administration of intravenous contrast. IV contrast: 10.5 mL of Gadavist. COMPARISON: 04/18/2017. FINDINGS: Ventricles and sulci normal in size. Numerous tiny subcortical white matter T2/FLAIR hyperintensities noted throughout the supratentorial brain. No posterior fossa lesions. These do not demonstrate restricted diffusion or enhancement. No new lesions. Prominent perivascular space noted in the right basal ganglia versus old appearing infarct. No mass effect or midline shift. No restricted diffusion to suggest acute ischemia. No hemorrhage. No extra-axial fluid collection. T2 skull base flow voids preserved. No abnormal parenchymal enhancement. Bone marrow signal intensity within the calvarium within normal limits. IMPRESSION: 1. Nonspecific numerous foci of white matter signal abnormalities throughout the cerebrum. These could be consistent with the given diagnosis of multiple sclerosis among other potential etiologies. No enhancement or restricted diffusion to suggest acute demyelination. No acute intracranial pathology. Electronically signed by: Wilbur River M.D. 10/12/2017 2:07 PM Dictated Date/Time: 10/12/2017 1:58 PM
--- NOTE | 2017-10-12 14:09 | DIAGNOSTIC IMAGING REPORT ---
CERVICAL SPINE MRI WITH AND WITHOUT CONTRAST HISTORY: Memory loss. Tremors. Balance issues. G35 Multiple sclerosis TECHNIQUE: Multiplanar multisequence MRI of the cervical spine was performed both before and after the use of intravenous contrast. COMPARISON STUDY: Cervical spine MRI 04/22/2017. FINDINGS: Straightening of the cervical spine. Alignment is intact. No fractures within the cervical spine. Prevertebral soft tissues and the C1-C2 interval are well-maintained. Anterior cervical discectomy and fusion at C5-C6. Mild disc space narrowing at C4-C5, unchanged. Stable 7 mm intradural extramedullary enhancing mass at the right C2-C3 location. No abnormal enhancement within the cervical spinal cord. Axial T2 images are suboptimal due to artifact throughout the cord. Mild cortical atrophy and abnormal T2 signal posteriorly at the C6-C7 level. This remains unchanged. Tiny focus of signal abnormality within the central cord at the C2-C3 level. Probable abnormal T2 hyperintense signal within the posterior aspect of the spinal cord at the C4-C5 levels. Small focus of abnormal T2 signal within the right side of the spinal cord at the C7-T1 level. Direct comparison to the prior studies is difficult due to the motion artifact but is likely overall similar in distribution. Small broad-based posterior disc osteophyte complexes at C3-C4 and C4-C5 resulting in partial effacement of the anterior thecal sac without cord deformity. There is also moderate left neural foraminal narrowing at C3-C4 and mild left-sided neural foraminal narrowing at C4-C5. IMPRESSION: 1. Scattered foci of T2 signal abnormality within the cervical spinal cord as described above. These are consistent with foci of demyelination. Direct comparison to the prior studies is difficult due to the motion artifact. However, these appear to demonstrate a similar distribution. 2. No abnormal enhancement within the cervical spine cord to suggest active demyelination. 3. Postoperative and degenerative changes are again noted. 4. Stable 7 mm enhancing extramedullary, intradural nodule at the C2-C3 level. This favors a meningioma. Electronically signed by: Thomas Jhaveri M.D. 10/12/2017 2:08 PM Dictated Date/Time: 10/12/2017 1:58 PM
== END | disposition home or self-care (01) ==
LOC: C.MRIBC 11:42
PROVIDERS: ATTEND Psychiatry & Neurology Neurology
DX: G35 Multiple sclerosis (principal)

== ENCOUNTER → 2018-03-01 | Outpatient (CLI) | payer BC ==
[~2018-03-01] MED LIST changes: +CLON1TAB10 PO; -CLON1TAB3 PO; -GADAVIST IV PRN
== END | disposition home or self-care (01) ==
LOC: C.PAPS 16:39
PROVIDERS: ATTEND Obstetrics & Gynecology
DX: Z01.419 Encounter for gynecological examination (general) (routine) without abnormal findings (principal); N95.2 Postmenopausal atrophic vaginitis

== ENCOUNTER → 2018-03-20 | Outpatient (CLI) | payer BC | END | disposition home or self-care (01) | LOC: C.LABSPEC 10:44 | PROVIDERS: ATTEND Urology | DX: N39.41 Urge incontinence (principal) ==

== ENCOUNTER 2021-09-15 07:27 | Observation (INO) ==
[2021-09-15] MEDS ORDERED: ASPIRIN CHEW 324 MG PO STA (07:37)
--- NOTE | 2021-09-15 07:57 | Emergency Department Note ---
History of Present Illness General Chief complaint: Shortness of Breath/Dyspnea Stated complaint: SOB,NAUSEA,LFT LEG PAIN-HX BLOOD CLOT Time Seen by Provider: 09/15/21 07:37 History of Present Illness Provider complaint: Left leg pain shortness of breath Onset (ago): day(s) 1 Location: lower extremity and left Radiation: non-radiation Severity: mild Pain Consistency: + constant Quality: + stabbing, + aching, + sharp and + dull Relieved By: + immobilization Exacerbated By: + movement Associated symptoms: + shortness of breath; no chest pain, no cough, no fever/chills, no headaches or no nausea/vomiting 70-year-old female presents emergency department for left lower extremity pain and shortness of breath. Patient states her pain in left lower extremity began yesterday. Pain in the left lower extremity is in the left posterior calf and left posterior thigh. She reports exertional dyspnea. She reports no chest pain. Patient is on Coumadin. Patient states she had her INR checked last week it was 1.4. Patient states her pain in her left lower extremity feels like when she had a previous DVT. Home Medications Medication Instructions Recorded Confirmed Type ascorbic acid (vitamin C) 500 mg 500 mg PO QAM tab 05/08/19 09/15/21 History tablet calcium carbonate 600 mg-vitamin 2 tab PO QAM tab 05/08/19 09/15/21 History D3 10 mcg (400 unit) tablet estradiol 1 g PV 2XWK #42.5 g 03/20/20 09/15/21 Rx ferrous sulfate 325 mg (65 mg 325 mg PO QDL 09/15/20 09/15/21 History iron) tablet (iron) magnesium 250 mg tablet 250 mg PO HS 09/15/20 09/15/21 History omega 0-mul-lnt-fish oil 100 1 cap PO QAM 09/15/20 09/15/21 History mg-160 mg-1,000 mg capsule (Fish Oil) spironolactone 50 mg tablet 50 mg PO PM 09/15/20 09/15/21 History celecoxib 200 mg capsule 200 mg PO QAM #90 cap 01/22/21 09/15/21 Rx fountain syringes applicator #1 ea 03/16/21 09/08/21 Rx clonazepam 1 mg tablet 1.5 mg PO HS 03/27/21 09/15/21 History ergocalciferol (vitamin D2) 1,250 50,000 unit PO Q14D 03/27/21 09/15/21 History mcg (50,000 unit) capsule nystatin 100,000 unit/gram topical 1 applic TOPICAL BID PRN 03/27/21 09/15/21 History cream cyanocobalamin (vitamin B-12) 100 mcg SQ MONTHLY #3 ml 04/09/21 09/15/21 Rx 1,000 mcg/mL injection solution insulin syringe-needle U-100 1 mL #10 ea 04/09/21 09/08/21 Rx 31 gauge x 5/16" (Advocate Syringes) dextroamphetamine-amphetamine ER 30 mg PO QAM #90 cap 06/01/21 09/15/21 Rx 30 mg 24hr capsule,extend release (Adderall XR) levothyroxine 112 mcg tablet 112 mcg PO QAM #30 tab 06/23/21 09/15/21 Rx carisoprodol 350 mg tablet 350 mg PO TID PRN 07/20/21 09/15/21 History meclizine 25 mg tablet 25 mg PO DAILY PRN 07/20/21 09/15/21 History oxybutynin chloride 5 mg 5 mg PO QAM 07/20/21 09/15/21 History tablet,extended release 24 hr (Ditropan XL) tramadol 50 mg tablet 50 mg PO HS PRN 10 Days #30 tab 08/24/21 09/15/21 Rx pantoprazole 40 mg tablet,delayed 40 mg PO BID #60 tab 09/08/21 09/15/21 Rx release 1 tab PO QAM 09/11/21 09/15/21 History cephalexin 500 mg tablet 500 mg PO TID 09/11/21 09/15/21 History folic acid 1 mg tablet 1 mg PO QAM 09/11/21 09/15/21 History lactobacillus combination no.4 3 3,000 mmu cells PO QAM 09/11/21 09/15/21 History billion cell capsule (Probiotic) venlafaxine 150 mg tablet,extended 150 mg PO BID 09/11/21 09/15/21 History release 24 hr warfarin 5 mg tablet 5 mg PO UD 09/11/21 09/15/21 History ondansetron HCl 4 mg tablet 4 mg PO Q8H PRN #20 tab 09/14/21 09/15/21 Rx mirabegron 50 mg tablet,extended 50 mg PO DAILY 09/15/21 09/15/21 History release 24 hr (Myrbetriq) rifampin 300 mg capsule 600 mg PO DAILY 09/15/21 09/15/21 History Allergies Allergy/AdvReac Type Severity Reaction Status Date / Time tetracycline Allergy Severe Anaphylaxis Verified 09/15/21 09:47 morphine Allergy Intermediate Rash, Verified 09/15/21 09:47 itching pregabalin [From Lyrica] Allergy Intermediate Feet Verified 09/15/21 09:47 swelling oxycodone Allergy Mild Rash, Verified 09/15/21 09:47 itching loratadine Allergy Unknown Unknown Verified 09/15/21 09:47 ropinirole Allergy Unknown Unknown Verified 09/15/21 09:47 Sulfa (Sulfonamide Allergy Unknown UNKNOWN Verified 09/15/21 09:47 Antibiotics) Past Med/Surg History Medical History Acid reflux controlled Anemia Anticoagulant long-term use Anxiety Chronic cystitis Chronic venous insufficiency Degenerative disc disease Depression Femur fracture BL - fall from ladder -- 04/2021 Hiatal hernia History of venous thromboembolism DVT LLE > PE post-op (2016), on warfarin Hx pulmonary embolism Hyperlipidemia per records, pt denies Hypothyroidism MS (multiple sclerosis) reason for Adderral per pt, follows with [facility] neurology (Dr. Tiki Lopez) > stable Nausea reason for EGD Obesity Osteoarthritis Osteoporosis Restless leg syndrome Spinal stenosis Transient ischemic attack (TIA) 2002, follows with [facility] neurology (Dr. Tiki Lopez) Urinary incontinence, urge Vision loss, left eye r/t "neuropathy" per pt Surgical History H/O gastric bypass H/O ovarian cystectomy H/O rectocele repair History of arthroplasty of left knee History of bladder surgery + vaginal mesh History of cataract surgery Right History of colonoscopy History of esophagogastroduodenoscopy (EGD) History of knee replacement Right x2 Left TKA (10/01/20): LMA 5.0 + PNB at [facility] (done under General anesthesia > hx MS) History of left knee replacement History of lumbar fusion x2 History of open reduction and internal fixation (ORIF) procedure BL Femur Hx of fusion of cervical spine No ROM limitations per pt Hx of LASIK Hx of melanoma excision Shoulder Hx of prior ablation treatment B/L LE S/P carpal tunnel release R/L S/P debridement x 2 (post op infection ORIF femur 04/2021) - reason for abx S/P epidural steroid injection S/P hysterectomy with oophorectomy S/P tonsillectomy [place] teeth extracted Family History Sister Breast cancer Aunt Breast cancer maternal Father Prostate cancer Brother Prostate cancer Family/Other Bladder cancer Heart disease Nephrolithiasis Hypertension Other Slow to wake up after anesthesia Denies family history of Ovarian cancer Myocardial infarction Colorectal cancer Social History Smoking Status: Never smoker Second Hand Exposure: Yes (hx, father smoked); Hx Alcohol Use: Yes Alcohol type: beer Hx Substance Use: No Preferred Language: German Communication Ability: Effective Visual Impairment: No Limitations Hearing Ability: Use of Hearing Aid Soaping Machine Back Tender Required: No Beliefs That Will Affect Care: None marital status: Single Current Living Situation: Family Current Living Situation Comment: daughter and son in law current occupational status: retired Feels Safe at Home: Yes Childhood Exposure to Second-Hand Smoke: Yes Dental Care, Regularly: No Physical Activity Frequency Comment: restricted with activity due to ms Seatbelt Use: always Sunscreen Use: Yes Assistive Devices: Cane, Glasses and Walker Review of Systems A total of 10 systems reviewed and were otherwise negative Physical Exam Vital Signs Vital Signs - 24 hr 09/15/21 07:32 09/15/21 08:25 09/15/21 08:28 Temperature 36.1 C L Temperature Source Temporal Artery Scan Pulse Rate 86 Pulse Rate [Finger] Pulse Rate from SpO2 Sensor Respiratory Rate 20 Respiratory Effort / Characteristics Non-Labored Spontaneous Respiratory Depth Normal Respiratory Pattern Regular Blood Pressure 104/67 Blood Pressure [Right Arm] Blood Pressure Mean 79 Blood Pressure Mean [Right Arm] Pulse Oximetry 99 96 Oxygen Delivery Method Room Air Room Air Room Air Sepsis Recent Fever Within 48 Hours No Sepsis New/Unexplained Change in Mental Status N/A Sepsis Action Taken by Nursing No Action Required 09/15/21 08:30 09/15/21 09:00 09/15/21 11:06 Temperature Temperature Source Pulse Rate 68 61 Pulse Rate [Finger] 64 Pulse Rate from SpO2 Sensor 67 62 Respiratory Rate 12 20 14 Respiratory Effort / Characteristics Respiratory Depth Respiratory Pattern Blood Pressure 114/67 110/64 Blood Pressure [Right Arm] 122/58 L Blood Pressure Mean 82 79 Blood Pressure Mean [Right Arm] 79 Pulse Oximetry 96 95 99 Oxygen Delivery Method Room Air Sepsis Recent Fever Within 48 Hours Sepsis New/Unexplained Change in Mental Status Sepsis Action Taken by Nursing Physical Exam GENERAL: She is oriented to person, place, and time. She appears well-developed and well-nourished. She does not appear distressed. HENT: Exam performed. -Head: Normocephalic and atraumatic. -Right Ear: External ear normal. No mastoid tenderness. -Left Ear: External ear normal. No mastoid tenderness. -Mouth/Throat: The oropharynx is clear and moist. No trismus in the jaw. No dental abscesses or uvula swelling. No oropharyngeal exudate or tonsillar abscesses. EYES: Conjunctivae and EOM are normal. Pupils are equal, round, and reactive to light. Right eye exhibits no discharge. Left eye exhibits no discharge. No scleral icterus. NECK: Normal range of motion. Neck supple. No JVD present. No spinous process tenderness present. No carotid bruit present. No rigidity. No tracheal deviation and normal range of motion present. No Brudzinski's sign and no Kernig's sign noted. CV: Normal rate, regular rhythm, normal heart sounds and intact distal pulses. There is no peripheral edema. Palpable radial pulses bue. PULM/CHEST: Effort normal and breath sounds normal. No respiratory distress. No stridor. She has no wheezes. She has no rales. -Chest Wall: She exhibits no tenderness. ABD: The abdomen is soft. Bowel sounds are normal. She has no distension. No mass is present. There is no tenderness. There is no rebound, no guarding, no Kelley's sign and no tenderness at McBurney's point. Rovsig negative MUSC/SKEL: Normal range of motion. There is no peripheral edema, tenderness or deformity. Palpable DP and PT pulse bilaterally. LYMPH: No cervical adenopathy. NEURO: She is alert and oriented to person, place, and time. She has normal strength. No cranial nerve deficit or sensory deficit. Coordination and gait normal. GCS eye subscore is 4. GCS verbal subscore is 5. GCS motor subscore is 6. Cerebellar tests wnl. SKIN: Skin is warm and dry. She is not diaphoretic. PSYCH: She has a normal mood and affect. Behavior is normal. Judgment and thought content normal. Course Course 0737: The patient was evaluated in room B10. A complete history and physical exam was performed Cardiac monitoring: An order was placed for continuous cardiac monitoring. The monitor shows a rate of 90 with sinus rhythm 1155: Vital signs stable. Repeat physical exam shows patient is not in any respiratory distress and lungs are clear to auscultation bilaterally. Labs within normal limits with exception of subtherapeutic INR and elevated D-dimer. Troponin negative. Ultrasound negative for DVT. CTA of the chest showed a fat embolism. Discussed case with Dr. Satish d[place] [facility] hospitalist to evaluate the patient for admission. We will hold off on anticoagulation at this time. Administered Medications Discontinued Medications Aspirin (Aspirin Chew 324 Mg) 324 mg PO NOW STA Stop: 09/15/21 07:38 Last Admin: 09/15/21 08:03 Dose: 324 mg Documented by: [id number] Ioversol (Optiray 320 125ml) 121 ml IV ONCE ONE Stop: 09/15/21 11:05 Last Admin: 09/15/21 11:05 Dose: 121 ml Documented by: [id number] Medical Decision Making Laboratory Data Result diagrams: 09/15/21 08:13 09/15/21 08:13 Lab Results 09/15/21 09/15/21 09/15/21 Range/Units 08:13 08:13 08:13 WBC 5.10 (4.8-10.8) K/uL RBC 3.36 L (4.2-5.4) M/uL Hgb 10.3 L (12.0-16.0) g/dL Hct 33.3 L (37-47) % MCV 99.1 (80-100) fL MCH 30.7 (25-34) pg MCHC 30.9 L (32-36) g/dL RDW Std Deviation 52.4 H (36.4-46.3) fL RDW Coeff of Chacorta 14.6 H (11.5-14.5) % Plt Count 221 (130-400) K/uL MPV 12.3 H (7.4-10.4) fL Immature Gran % (Auto) 0.2 % Neut % (Auto) 73.5 % Lymph % (Auto) 16.3 % [place] % (Auto) 6.9 % Eos % (Auto) 2.9 % Baso % (Auto) 0.2 % Neut # (Auto) 3.75 (1.4-6.5) K/uL Lymph # (Auto) 0.83 L (1.2-3.4) K/uL [place] # (Auto) 0.35 (0.11-0.59) K/uL Eos # (Auto) 0.15 (0-0.5) K/uL Baso # (Auto) 0.01 (0-0.2) K/uL Immature Gran # (Auto) 0.01 (0.00-0.02) K/uL PT 14.7 H (9.0-12.0) Seconds INR 1.5 H (0.9-1.1) APTT 34.7 H (21.0-31.0) Seconds PTT Ratio 1.3 D-Dimer (0-500) ug/L FEU Sodium 140 (136-145) mmol/L Potassium 3.8 (3.5-5.1) mmol/L Chloride 107 (98-107) mmol/L Carbon Dioxide 29 (21-32) mmol/L Anion Gap 4 (3-11) BUN 20 (6-23) mg/dl Creatinine 1.00 (0.6-1.2) mg/dl Est Cr Clr Drug Dosing 55.7 ml/min Est GFR ( Amer) 65.6 ml/min Est GFR (Non-Af Amer) 56.6 ml/min BUN/Creatinine Ratio 20.0 (10-20) Glucose 101 H (70-99(Fasting)) mg/dl Calcium 8.8 (8.5-10.1) mg/dl Total Creatine Kinase 47 (26-192) U/L Troponin I < 0.03 (0-0.04) ng/ml Lipase 38 (11-82) U/L Urine Color Urine Appearance (Clear) Urine pH (4.5-7.5) Ur Specific [place] (1.000-1.030) Urine Protein (Negative) Urine Glucose (UA) (Negative) Urine Ketones (Negative) Urine Blood (Negative) Urine Nitrite (Negative) Urine Bilirubin (Negative) Urine Urobilinogen (Negative) Ur Leukocyte Esterase (Negative) Urine WBC (Auto) (0-5) /hpf Urine RBC (Auto) (0-4) /hpf U Hyaline Cast (Auto) (0-5) /lpf U Epithel Cells (Auto) (0-5) /lpf Urine Bacteria (Auto) (Negative) 09/15/21 09/15/21 Range/Units 08:13 10:27 WBC (4.8-10.8) K/uL RBC (4.2-5.4) M/uL Hgb (12.0-16.0) g/dL Hct (37-47) % MCV (80-100) fL MCH (25-34) pg MCHC (32-36) g/dL RDW Std Deviation (36.4-46.3) fL RDW Coeff of Ch[place]orta (11.5-14.5) % Plt Count (130-400) K/uL MPV (7.4-10.4) fL Immature Gran % (Auto) % Neut % (Auto) % Lymph % (Auto) % [place] % (Auto) % Eos % (Auto) % Baso % (Auto) % Neut # (Auto) (1.4-6.5) K/uL Lymph # (Auto) (1.2-3.4) K/uL [place] # (Auto) (0.11-0.59) K/uL Eos # (Auto) (0-0.5) K/uL Baso # (Auto) (0-0.2) K/uL Immature Gran # (Auto) (0.00-0.02) K/uL PT (9.0-12.0) Seconds INR (0.9-1.1) APTT (21.0-31.0) Seconds PTT Ratio D-Dimer 6960 H* (0-500) ug/L FEU Sodium (136-145) mmol/L Potassium (3.5-5.1) mmol/L Chloride (98-107) mmol/L Carbon Dioxide (21-32) mmol/L Anion Gap (3-11) BUN (6-23) mg/dl Creatinine (0.6-1.2) mg/dl Est Cr Clr Drug Dosing ml/min Est GFR ( Amer) ml/min Est GFR (Non-Af Amer) ml/min BUN/Creatinine Ratio (10-20) Glucose (70-99(Fasting)) mg/dl Calcium (8.5-10.1) mg/dl Total Creatine Kinase (26-192) U/L Troponin I (0-0.04) ng/ml Lipase (11-82) U/L Urine Color Yellow Urine Appearance Clear (Clear) Urine pH 5.5 (4.5-7.5) Ur Specific [place] 1.020 (1.000-1.030) Urine Protein Trace H (Negative) Urine Glucose (UA) Negative (Negative) Urine Ketones Trace H (Negative) Urine Blood 3+ H (Negative) Urine Nitrite Negative (Negative) Urine Bilirubin Negative (Negative) Urine Urobilinogen Negative (Negative) Ur Leukocyte Esterase Trace H (Negative) Urine WBC (Auto) 5-10 H (0-5) /hpf Urine RBC (Auto) >30 H (0-4) /hpf U Hyaline Cast (Auto) 1-5 (0-5) /lpf U Epithel Cells (Auto) 20-30 H (0-5) /lpf Urine Bacteria (Auto) Negative (Negative) Imaging Data Radiologist's Impression: Chest X-Ray 09/15/21 07:37 XR chest 1V portable HISTORY: 70 years-old Female Chest Pain acute atypical chest pain COMPARISON: Chest radiograph 09/25/2020 TECHNIQUE: Portable AP view of the chest FINDINGS: The cardiomediastinal and hilar silhouettes are within normal limits. Descending thoracic aortic tortuosity. No pneumothorax, pleural effusion, airspace consolidation or overt pulmonary edema. Subacute to chronic appearing fractures of the anterolateral right fourth through sixth ribs appear new from prior. Degenerative changes of the shoulders and spine. Cervical spinal fusion hardware. IMPRESSION: No acute process. ACT 112: Negative or not required by law. The above report was generated using voice recognition software. It may contain grammatical, syntax or spelling errors. Electronically signed by: Tima Salguero M.D. 09/15/2021 8:00 AM Venous Doppler Study 09/15/21 07:44 LEFT LOWER EXTREMITY VENOUS DOPPLER HISTORY: Acute pain and swelling of the left lower leg rodvt COMPARISON STUDY: Doppler study 09/25/2017 FINDINGS: There is normal compressibility, flow, and augmentation within the left lower extremity deep venous system. IMPRESSION: No DVT within the left lower extremity. ACT 112: Negative or not required by law. Electronically signed by: Tima Salguero M.D. 09/15/2021 9:54 AM Chest CTA 09/15/21 09:49 CT ANGIOGRAPHY OF THE CHEST, PULMONARY EMBOLUS PROTOCOL CLINICAL HISTORY: Shortness of breath. Left leg pain and swelling. Evaluate for pulmonary embolus. COMPARISON STUDY: Chest radiograph performed earlier today. Chest CT September 20, 2016. TECHNIQUE: Following IV administration of 121 mL of Optiray, helical axial images of the chest were obtained utilizing the pulmonary embolus protocol. Maximal intensity projections and sagittal and coronal reformats were viewed on an independent 3D workstation. IV contrast was administered without complication. Automated exposure control was utilized for the study. A dose lowering technique was utilized adhering to the principles of ALARA. CT DOSE: 362.62 mGy.cm FINDINGS: Note is made of a small fat attenuation segmental pulmonary embolus within the segmental branch to the apical segment of the right upper lobe shown on axial image 186 of 283. No additional pulmonary emboli are noted. There is significant dilatation of the main pulmonary artery, measuring 4.7 cm in caliber. Moderate cardiomegaly is noted. There is mild dilatation of the ascending aorta. No thoracic lymphadenopathy is present. No pneumothorax or pleural effusion is noted. No pulmonary infarct. Multiple small pulmonary nodules are unchanged since CT of September 20, 2016. These are benign. Old bilateral rib fractures are noted. Several healing right-sided rib fractures are present. 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 There is a suspected segment 7 hepatic cyst. IMPRESSION: 1. Small fat attenuation segmental pulmonary embolus within the right upper lobe. This suggests fat embolism although the etiology and clinical significance of this finding is uncertain. Findings discussed with Dr. Correa at time of dictation. 2. Dilatation of the main pulmonary artery suggestive of pulmonary arterial hypertension. 3. Cardiomegaly. ACT 112: Negative or not required by law. Electronically signed by: Ruben Austin M.D. 09/15/2021 11:26 AM ECG Data Indication: + SOB/dyspnea Rate (beats per minute): 74 Rhythm: + normal sinus ECG Intervals/blocks: + Right Bundle branch block, + Normal NE and + Normal QT-c ECG ST segments: + Normal ST segments Additional Comments: QRS 134 MDM Narrative Vital signs stable. Repeat physical exam shows patient is not in any respir atory distress and lungs are clear to auscultation bilaterally. Labs within normal limits with exception of subtherapeutic INR and elevated D-dimer. Troponin negative. Ultrasound negative for DVT. CTA of the chest showed a fat embolism. Discussed case with Dr. Satish alvarez hospitalist to evaluate the patient for admission. We will hold off on anticoagulation at this time. Impression & Plan Embolism, fat Discharge Plan Visit Data Chief Complaint: Shortness of Breath/Dyspnea Stated Complaint: SOB,NAUSEA,LFT LEG PAIN-HX BLOOD CLOT ED Provider: Brennen Correa Discharge Problem: Embolism, fat Patient Disposition: Being Evaluated by Hospitalist Forms Stand Alone Forms: [facility] Prescriptions Prescriptions: No Action estradiol 0.01 % (0.1 mg/gram) cream 1 g PV 2XWK Qty: 42.5 RF: 1 celecoxib 200 mg capsule 200 mg PO QAM Qty: 90 RF: 3 (DME) fountain syringes applicator Misc See Rx Instructions .Route Qty: 1 RF: 4 dextroamphetamine-amphetamine [Adderall XR] 30 mg capsule,extended release 24hr 30 mg PO QAM Qty: 90 RF: 0 levothyroxine 112 mcg tablet 112 mcg PO QAM Qty: 30 RF: 5 tramadol 50 mg tablet 50 mg PO HS PRN (Reason: pain) 10 Days Qty: 30 RF: 0 ondansetron HCl 4 mg tablet 4 mg PO Q8H PRN (Reason: nausea and vomiting) Qty: 20 RF: 1 ascorbic acid (vitamin C) 500 mg tablet 500 mg PO QAM RF: 0 calcium carbonate-vitamin D3 600 mg(1,500mg) -400 unit tablet 2 tab PO QAM RF: 0 cyanocobalamin (vitamin B-12) 1,000 mcg/mL solution 100 mcg SQ MONTHLY Qty: 3 RF: 5 (DME) insulin syringe-needle U-100 [Advocate Syringes] 1 mL 31 gauge x 5/16 syringe See Rx Instructions .Route Qty: 10 RF: 1 meclizine 25 mg tablet 25 mg PO DAILY PRN (Reason: Vertigo) RF: 0 oxybutynin chloride [Ditropan XL] 5 mg tablet extended release 24hr 5 mg PO QAM RF: 0 carisoprodol 350 mg tablet 350 mg PO TID PRN (Reason: Muscle Spasm) RF: 0 pantoprazole 40 mg tablet,delayed release (DR/EC) 40 mg PO BID Qty: 60 RF: 3 ferrous sulfate [iron] 325 mg (65 mg iron) Tablet 325 mg PO QDL RF: 0 magnesium 250 mg Tablet 250 mg PO HS RF: 0 spironolactone 50 mg Tablet 50 mg PO PM RF: 0 Fish Oil 100-160-1,000 mg Capsule 1 cap PO QAM RF: 0 Hold Instructions: per pt clonazepam 1 mg tablet 1.5 mg PO HS RF: 0 nystatin 100,000 unit/gram cream 1 applic topical BID PRN (Reason: Skin Irritation) RF: 0 ergocalciferol (vitamin D2) 1,250 mcg (50,000 unit) capsule 50,000 unit PO Q14D RF: 0 Probiotic 3 billion cell Capsule 3,000 mmu cells PO QAM RF: 0 1 tab PO QAM RF: 0 warfarin 5 mg tablet 5 mg PO UD RF: 0 folic acid 1 mg tablet 1 mg PO QAM RF: 0 venlafaxine 150 mg tablet extended release 24 hr 150 mg PO BID RF: 0 cephalexin 500 mg Tablet 500 mg PO TID RF: 0 rifampin 300 mg capsule 600 mg PO DAILY RF: 0 Myrbetriq 50 mg tablet extended release 24 hr 50 mg PO DAILY RF: 0 Referrals Referrals: Lalo Tamayo MD [Primary Care Provider] -
--- NOTE | 2021-09-15 08:02 | XRay Report ---
XR chest 1V portable HISTORY: 70 years-old Female Chest Pain acute atypical chest pain COMPARISON: Chest radiograph 09/25/2020 TECHNIQUE: Portable AP view of the chest FINDINGS: The cardiomediastinal and hilar silhouettes are within normal limits. Descending thoracic aortic tort uosity. No pneumothorax, pleural effusion, airspace consolidation or overt pulmonary edema. Subacute to chronic appearing fractures of the anterolateral right fourth through sixth ribs appear new from p rior. Degenerative changes of the shoulders and spine. Cervical spinal fusion hardware. IMPRESSION: No acute process. ACT 112: Negative or not required by law. The above report was generated using voice recognition software. It may contain grammatical, syntax o r spelling errors. Electronically signed by: Tima Salguero M.D. 09/15/2021 8:00 AM
[2021-09-15 08:31] LABS: Basophils # (auto) 0.01 K/uL (0-0.2); Basophils % (auto) 0.2 %; Eosinophils # (auto) 0.15 K/uL (0-0.5); Eosinophils % (auto) 2.9 %; Hematocrit (blood only) 33.3 % (37-47); Hemoglobin 10.3 g/dL (12.0-16.0); Immature Granulocytes # (auto) 0.01 K/uL (0.00-0.02); Immature Granulocytes % (auto) 0.2 %; Lymphocytes # (auto) 0.83 K/uL (1.2-3.4); Lymphocytes % (auto) 16.3 %; Mean Corpuscular Hemoglobin 30.7 pg (25-34); Mean Corpuscular Hgb Conc 30.9 g/dL (32-36); Mean Corpuscular Volume 99.1 fL (80-100); Mean Platelet Volume 12.3 fL (7.4-10.4); Monocytes # (auto) 0.35 K/uL (0.11-0.59); Monocytes % (auto) 6.9 %; Neutrophils # (auto) 3.75 K/uL (1.4-6.5); Neutrophils % (auto) 73.5 %; Platelet Count 221 K/uL (130-400); RDW Coefficient of Variation 14.6 % (11.5-14.5); RDW Standard Deviation 52.4 fL (36.4-46.3); Red Blood Count 3.36 M/uL (4.2-5.4)
[2021-09-15 08:41] LABS: INR 1.5 (0.9-1.1); Partial Thromboplastin Ratio 1.3; Partial Thromboplastin Time 34.7 Seconds (21.0-31.0); Prothrombin Time 14.7 Seconds (9.0-12.0)
--- NOTE | 2021-09-15 08:51 | Electrocardiogram Report ---
Test Reason : Blood Pressure : / mmHG Vent. Rate : 074 BPM Atrial Rate : 074 BPM P-R Int : 170 ms QRS Dur : 134 ms QT Int : 398 ms P-R-T Axes : 058 002 -04 degrees QTc Int : 441 ms Normal sinus rhythm Right bundle branch block Abnormal ECG When compared with ECG of 27-APR-2018 15:32, No significant change was found Confirmed by Lb Culp ([id number]) on 09/15/2021 8:51:36 AM Referred By: REFERRED SELF Confirmed By:Zain Culp
[2021-09-15 08:53] LABS: Troponin I < 0.03 ng/ml (0-0.04)
[2021-09-15 08:55] LABS: Anion Gap 4 (3-11); Blood Urea Nitrogen 20 mg/dl (6-23); Calcium 8.8 mg/dl (8.5-10.1); Carbon Dioxide 29 mmol/L (21-32); Chloride 107 mmol/L (98-107); Creatine Kinase 47 U/L (26-192); Creatinine Clr Calc Pharmacy 55.7 ml/min; Est GFR (African American) 65.6 ml/min; Est GFR (Non-African American) 56.6 ml/min; Glucose 101 mg/dl (70-99(Fasting)); Lipase 38 U/L (11-82); Potassium 3.8 mmol/L (3.5-5.1); Sodium 140 mmol/L (136-145)
[2021-09-15 09:38] LABS: D Dimer 6960 ug/L FEU (0-500)
--- NOTE | 2021-09-15 09:56 | Ultrasound Report ---
LEFT LOWER EXTREMITY VENOUS DOPPLER HISTORY: Acute pain and swelling of the left lower leg rodvt COMPARISON STUDY: Doppler study 09/25/2017 FINDINGS: There is normal compressibility, flow, and augmentation within the left lower extremity laurie p venous system. IMPRESSION: No DVT within the left lower extremity. ACT 112: Negative or not required by law. Electronically signed by: Tima Salguero M.D. 09/15/2021 9:54 AM
[2021-09-15 10:41] LABS: Appearance Urine Clear (Clear); Bacteria Urine Automated Negative (Negative); Bilirubin Urine Negative (Negative); Blood Urine 3+ (Negative); Color Urine Yellow; Epithelial Cell Urine Auto 20-30 /lpf (0-5); Glucose Urine UA Negative (Negative); Ketones Urine Trace (Negative); Leukocyte Esterase Urine Trace (Negative); Nitrite Urine Negative (Negative); Protein Urine Trace (Negative); RBC Urine Automated >30 /hpf (0-4); Urobilinogen Urine Negative (Negative); pH Urine 5.5 (4.5-7.5)
[2021-09-15] MEDS ORDERED: OPTIRAY 320 125ml IV ONE (11:04)
--- NOTE | 2021-09-15 11:28 | CT Scan Report ---
CT ANGIOGRAPHY OF THE CHEST, PULMONARY EMBOLUS PROTOCOL CLINICAL HISTORY: Shortness of breath. Left leg pain and swelling. Evaluate for pulmonary embolus. COMPARISON STUDY: Chest radiograph performed earlier today. Chest CT September 20, 2016. TECHNIQUE: Following IV administration of 121 mL of Optiray, helical axial images of the chest were o btained utilizing the pulmonary embolus protocol. Maximal intensity projections and sagittal and cor onal reformats were viewed on an independent 3D workstation. IV contrast was administered without co mplication. Automated exposure control was utilized for the study. A dose lowering technique was ut ilized adhering to the principles of ALARA. CT DOSE: 362.62 mGy.cm FINDINGS: Note is made of a small fat attenuation segmental pulmonary embolus within the segmental b ranch to the apical segment of the right upper lobe shown on axial image 186 of 283. No additional pu lmonary emboli are noted. There is significant dilatation of the main pulmonary artery, measuring 4.7 cm in caliber. Moderate cardiomegaly is noted. There is mild dilatation of the ascending aorta. No t horacic lymphadenopathy is present. No pneumothorax or pleural effusion is noted. No pulmonary infarc t. Multiple small pulmonary nodules are unchanged since CT of September 20, 2016. These are benign. Ol d bilateral rib fractures are noted. Several healing right-sided rib fractures are present. 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 There is a suspected segment 7 hepatic cyst. IMPRESSION: 1. Small fat attenuation segmental pulmonary embolus within the right upper lobe. This suggests fat embolism although the etiology and clinical significance of this finding is uncertain. Findings discu ssed with Dr. Correa at time of dictation. 2. Dilatation of the main pulmonary artery suggestive of pulmonary arterial hypertension. 3. Cardiomegaly. ACT 112: Negative or not required by law. Electronically signed by: Ruben Austin M.D. 09/15/2021 11:26 AM
--- NOTE | 2021-09-15 13:25 | History & Physical Report ---
Date of Service September 15, 2021 Assessment & Plan (1) Shortness of breath: Plan: Presented with shortness of breath and left lower extremity pain reminiscent of her previous DVT With incidental finding of fat embolism on CT angiogram chest which perhaps occurred during her previous femur fractures in 04/2021 Likely secondary to acute on chronic diastolic CHF and pulmonary hypertension as below Despite normal pulse ox at rest, would benefit from two-step walk test prior to discharge to assess for need for exertional O2 (2) Lower extremity pain: Plan: Left sided behind the knee and up the posterior thigh that was fairly severe prior to admission Now is improved Lower extremity Doppler negative for DVT X-rays taken of knee and hip She was just seen by her orthopedic surgeon 3 weeks ago and deemed to be doing well from a healing standpoint Perhaps was just a muscle cramp? Follow clinically (3) Embolism, fat: Plan: Unsure of chronicity/acuteness- Likely related to initial trauma or infection/osteo following. - This may be playing role in worsening her underlying pulmonary hypertension - No evidence of pulmonary edema and no oxygenation requirement (4) Atrial enlargement, bilateral: Plan: Bilateral atrial enlargement- likely related to chronic obesity hypoventilation syndrome and possibly worsened with fat embolism as above - Noted increase in her pulmonary artery size from April CT scan- She is noted to have mild elevation of her RVSP in the past diagnosed by ECHO only - HC03 is 29- ABG in the morning for evaluation of obesity hypoventilation syndrome - Will give 20mg Lasix IV now - ECHO as above- likely benefit from updated sleep study (5) Diastolic CHF: Plan: As above - Acute on chronic diastolic heart failure - ECHO now- cardiology consult for invasive evaluation of pulm htn - Lasix now x1 and assess response - Her past ECHO from 06/26/21 was EF 55-59% no RWMA, mild mitral stenosis and aortic valve sclerosis, with bilateral atrial enlargement (6) Esophageal reflux: Plan: Continue with PPI - GI consult for evaluation continuation or reschedule her EGD which was supposed to be for tomorrow -We will keep n.p.o. after midnight just in case (7) Hx pulmonary embolism: Plan: Chronic as above - Continue anticoagulation - transition to therapeutic Lovenox for now in case EGD still planned for tomorrow - pending GI evaluation - increase Coumadin for targeted INR (8) Femur fracture: Plan: As above- with MSSA wound with washout of the right hip as well as MSSA in the blood which she is on Rifampin and Keflex now for suppression - ID consult as note is unclear from previous documentation on continuation of rifampin ID consulted - If no rifampin needed any longer, can transition back to DOAC (9) Obesity: Plan: ? Obesity hypoventilation syndrome with chronically elevated HCO3 - ABG in am BMI 28.6 (10) Hypothyroidism, unspecified: Plan: Continue synthroid TSH normal at 2.5 in 07/2021 History of Present Illness Primary Care Provider: Lalo Tamayo MD 70 YOF with past medical history of: MS, TIA, Hypothyroidism, incontinence, rectocele/cystocele repair 2005, obesity, gastric bypass, laminectomy with decompression and fusion, chronic cystitis, GERD, HLD, venous insufficiency (right saphenous vein shutdown), DVT with submassive PE (2015) on DOAC recently changed to VKA. Patient comes to the EMD today for complaints of dyspnea and left popliteal and quad pain and concern for DVT, subsequently found to have pulmonary artery fat embolism and subtherapeutic INR. Patient states that she was making her bed about 2 days ago when she developed an quick onset shortness of breath with a heaviness that felt like she was unable to get deep enough breath. This resolved on its own and was not associated with any other symptoms. She also reports that this had happened sometime last week. Her left posterior knee pain started last night and tracked up into her left posterior quadriceps. She had a ultrasound of her left lower leg completed in the EMD that was negative for acute DVT, she had a CTA of her chest which revealed small fat attenuation segmental pulmonary embolism to the right upper lobe. Patient denies any recent trauma or falls since her episode in April- so unsure of when this may have occurred. She has a CTA of the chest performed in April on arrival to the trauma bay which did not note any PE but continued to note dilated pulmonary artery, although with infection this could have also contributed to this. The patient lower bilateral legs are mildly edematous, which is new for her and she remains somewhat fatigued. She is still able to perform her PT but just feels as she is getting more fatigued. She reports that she does not wear CPAP at home, and reports she had a sleep study many years ago however, unable to find in our system. For her INR she has been having difficulty with food tasting differently and is associated with increased in nausea with vomiting which has decreased her food intake and possibly not keeping her medications down. She was scheduled for GI evaluation tomorrow for likely an EGD. Patient will be observed for her symptomatology, obtain ECHO evaluate her RVSP and function, consider increasing diuretic, Lovenox for her subtherapeutic INR. GI consult for evaluation of continuing planned EGD - and will adjust her Coumadin based on intervention plans. Currently feel her symptoms are consistent with right heart failure from worsening elevation of her PA pressures. Patient with history of falling off ladder in May 21, 2021 fracturing bilateral femurs, was transferred to [place] trauma- she was diagnosed with midshaft oblique fracture of the right femur and displaced oblique fracture to the mid distal shaft of the left femur. She underwent Left intramedullary nailing of her femur and ORIF to the right periprosthetic distal femur fracture. This was complicated by MSSA bacteremia and debridement of her right femur as wound culture also with MSSA. She had an TTE performed that was negative for any valve abnormalities and normal EF and wall motion. She completed IV Ancef and Rifampin- where she was transitioned to VKA for completion of this. She was transitioned to Keflex indefinite following this. She states she remains on Rifampin and had 30 day supply that will finish what appears on . She is also noted to be subtherapeutic on her INR. Her COVID test on admission is: NEGATIVE Allergies Allergy/AdvReac Type Severity Reaction Status Date / Time tetracycline Allergy Severe Anaphylaxis Verified 09/15/21 09:47 morphine Allergy Intermediate Rash, Verified 09/15/21 09:47 itching pregabalin [From Lyrica] Allergy Intermediate Feet Verified 09/15/21 09:47 swelling oxycodone Allergy Mild Rash, Verified 09/15/21 09:47 itching loratadine Allergy Unknown Unknown Verified 09/15/21 09:47 ropinirole Allergy Unknown Unknown Verified 09/15/21 09:47 Sulfa (Sulfonamide Allergy Unknown UNKNOWN Verified 09/15/21 09:47 Antibiotics) Home Medications Medication Instructions Recorded Confirmed Type ascorbic acid (vitamin C) 500 mg 500 mg PO QAM tab 05/08/19 09/15/21 History tablet calcium carbonate 600 mg-vitamin 2 tab PO QAM tab 05/08/19 09/15/21 History D3 10 mcg (400 unit) tablet estradiol 1 g PV 2XWK #42.5 g 03/20/20 09/15/21 Rx ferrous sulfate 325 mg (65 mg 325 mg PO QDL 09/15/20 09/15/21 History iron) tablet (iron) magnesium 250 mg tablet 250 mg PO HS 09/15/20 09/15/21 History omega 6-kff-ozq-fish oil 100 1 cap PO QAM 09/15/20 09/15/21 History mg-160 mg-1,000 mg capsule (Fish Oil) spironolactone 50 mg tablet 50 mg PO PM 09/15/20 09/15/21 History celecoxib 200 mg capsule 200 mg PO QAM #90 cap 01/22/21 09/15/21 Rx fountain syringes applicator #1 ea 03/16/21 09/08/21 Rx clonazepam 1 mg tablet 1.5 mg PO HS 03/27/21 09/15/21 History ergocalciferol (vitamin D2) 1,250 50,000 unit PO Q14D 03/27/21 09/15/21 History mcg (50,000 unit) capsule nystatin 100,000 unit/gram topical 1 applic TOPICAL BID PRN 03/27/21 09/15/21 History cream cyanocobalamin (vitamin B-12) 100 mcg SQ MONTHLY #3 ml 04/09/21 09/15/21 Rx 1,000 mcg/mL injection solution insulin syringe-needle U-100 1 mL #10 ea 04/09/21 09/08/21 Rx 31 gauge x 5/16" ([facility] Syringes) dextroamphetamine-amphetamine ER 30 mg PO QAM #90 cap 06/01/21 09/15/21 Rx 30 mg 24hr capsule,extend release (Adderall XR) levothyroxine 112 mcg tablet 112 mcg PO QAM #30 tab 06/23/21 09/15/21 Rx carisoprodol 350 mg tablet 350 mg PO TID PRN 07/20/21 09/15/21 History meclizine 25 mg tablet 25 mg PO DAILY PRN 07/20/21 09/15/21 History oxybutynin chloride 5 mg 5 mg PO QAM 07/20/21 09/15/21 History tablet,extended release 24 hr (Ditropan XL) tramadol 50 mg tablet 50 mg PO HS PRN 10 Days #30 tab 08/24/21 09/15/21 Rx pantoprazole 40 mg tablet,delayed 40 mg PO BID #60 tab 09/08/21 09/15/21 Rx release 1 tab PO QAM 09/11/21 09/15/21 History cephalexin 500 mg tablet 500 mg PO TID 09/11/21 09/15/21 History folic acid 1 mg tablet 1 mg PO QAM 09/11/21 09/15/21 History lactobacillus combination no.4 3 3,000 mmu cells PO QAM 09/11/21 09/15/21 History billion cell capsule (Probiotic) venlafaxine 150 mg tablet,extended 150 mg PO BID 09/11/21 09/15/21 History release 24 hr warfarin 5 mg tablet 5 mg PO UD 09/11/21 09/15/21 History ondansetron HCl 4 mg tablet 4 mg PO Q8H PRN #20 tab 09/14/21 09/15/21 Rx mirabegron 50 mg tablet,extended 50 mg PO DAILY 09/15/21 09/15/21 History release 24 hr (Myrbetriq) rifampin 300 mg capsule 600 mg PO DAILY 09/15/21 09/15/21 History Past Med/Surg History Medical History (Updated 09/15/21 @ 23:16 by Judith Covarrubias MD) Acid reflux controlled Anemia Anticoagulant long-term use Anxiety Chronic cystitis Chronic venous insufficiency Degenerative disc disease Depression Femur fracture BL - fall from ladder -- 04/2021 Hiatal hernia History of venous thromboembolism DVT LLE > PE post-op (2015), on warfarin Hx pulmonary embolism Hyperlipidemia per records, pt denies Hypothyroidism MS (multiple sclerosis) reason for Adderral per pt, follows with [facility] neurology (Dr. Tiki Lopez) > stable Nausea reason for EGD Obesity Osteoarthritis Osteoporosis Restless leg syndrome Spinal stenosis Transient ischemic attack (TIA) 2002, follows with [facility] neurology (Dr. Tiki Lopez) Urinary incontinence, urge Vision loss, left eye r/t "neuropathy" per pt Surgical History H/O gastric bypass H/O ovarian cystectomy H/O rectocele repair History of arthroplasty of left knee History of bladder surgery + vaginal mesh History of cataract surgery Right History of colonoscopy History of esophagogastroduodenoscopy (EGD) History of knee replacement Right x2 Left TKA (10/01/20): LMA 5.0 + PNB at [facility] (done under General anesthesia > hx MS) History of left knee replacement History of lumbar fusion x2 History of open reduction and internal fixation (ORIF) procedure BL Femur Hx of fusion of cervical spine No ROM limitations per pt Hx of LASIK Hx of melanoma excision Shoulder Hx of prior ablation treatment B/L LE S/P carpal tunnel release R/L S/P debridement x 2 (post op infection ORIF femur 04/2021) - reason for abx S/P epidural steroid injection S/P hysterectomy with oophorectomy S/P tonsillectomy [place] teeth extracted Family History Sister Breast cancer Aunt Breast cancer maternal Father Prostate cancer Brother Prostate cancer Family/Other Bladder cancer Heart disease Nephrolithiasis Hypertension Other Slow to wake up after anesthesia Denies family history of Ovarian cancer Myocardial infarction Colorectal cancer Social History Smoking Status: Never smoker Second Hand Exposure: No; Do You Dip or Chew Tobacco: No; Tobacco Cessation Education Requested by Patient: No Hx Alcohol Use: No Hx Substance Use: No Preferred Language: Yi Communication Ability: Effective Visual Impairment: No Limitations Hearing Ability: Use of Hearing Aid Grid Inspector Required: No Beliefs That Will Affect Care: None marital status: Single Current Living Situation: Family Current Living Situation Comment: daughter and son in law current occupational status: retired Feels Safe at Home: Yes Safety Concerns: Feels Safe At This Time Childhood Exposure to Second-Hand Smoke: Yes Dental Care, Regularly: No Physical Activity Frequency Comment: restricted with activity due to ms Seatbelt Use: always Sunscreen Use: Yes Assistive Devices: None Review of Systems Review of Systems: REVIEW OF SYSTEMS: Constitutional: No fever, sweats or chills Eyes: No diplopia, no worsening or blurred vision ENT: normal hearing, no trouble swallowing Respiratory: (+) dyspnea on exertion, No cough, sputum, dyspnea at rest Cardiovascular: No chest pain, tightness or palpitations Abdomen: (+) constipation, No pain, nausea, vomiting, or constipation Musculoskeletal:(+) pain, left leg swelling, No joint pain, calf pain, swelling Neurologic: No weakness, numbness/tingling, or balance problems Psychiatric: No anxiety or depression Skin: No rash or itch Physical Exam Physical Exam: PHYSICAL EXAM: General: awake, alert, no apparent distress Head: Normocephalic, atraumatic ENT: PERRL, EOMI, no pharyngeal exudate, mucous membranes moist Neuro: AAO x 3, speech clear and appropriate, strength intact bilaterally 5/5, sensation intact and equal all extremities and dermatomes, no pronator drift Chest: equal rise and fall of the chest, no accessory muscle use, no heaves or thrills, Clear to auscultation, on room air, Cardiac: Regular rate and rhythm, telemetry reviewed- NSR no ectopy, skin warm dry, cap refill <3 seconds, peripheral pulses +2 no JVD, no murmur, +1 edema to bilateral lower legs up to just below knee GI: NABS x 4 quadrants, soft, nontender to palpation, no rebound, guarding or tenderness : Spontaneously voiding, no pain, no CVA tenderness, Extremities: Normal inspection, no peripheral edema or erythema, calfs nontender to palpation Psych: Normal mood and affect Skin: right leg incision well healed small hematoma no drainage, left leg incision well healed no pain no erythema Results & Data Results & Data ([facility]) Vital Signs (Past 12 Hours) Vital Signs Temp Pulse Pulse Resp BP BP Pulse Ox 09/15/21 11:06 64 14 122/58 L 99 09/15/21 09:00 61 20 110/64 95 09/15/21 08:30 68 12 114/67 96 09/15/21 08:25 96 09/15/21 07:32 36.1 C L 86 20 104/67 99 Laboratory Results Abnormal lab results 09/15/21 09/15/21 09/15/21 Range/Units 08:13 08:13 08:13 RBC 3.36 L (4.2-5.4) M/uL Hgb 10.3 L (12.0-16.0) g/dL Hct 33.3 L (37-47) % MCHC 30.9 L (32-36) g/dL RDW Std Deviation 52.4 H (36.4-46.3) fL RDW Coeff of Chacorta 14.6 H (11.5-14.5) % MPV 12.3 H (7.4-10.4) fL Lymph # (Auto) 0.83 L (1.2-3.4) K/uL PT 14.7 H (9.0-12.0) Seconds INR 1.5 H (0.9-1.1) APTT 34.7 H (21.0-31.0) Seconds D-Dimer (0-500) ug/L FEU Glucose 101 H (70-99(Fasting)) mg/dl Urine Protein (Negative) Urine Ketones (Negative) Urine Blood (Negative) Ur Leukocyte Esterase (Negative) Urine WBC (Auto) (0-5) /hpf Urine RBC (Auto) (0-4) /hpf U Epithel Cells (Auto) (0-5) /lpf 09/15/21 09/15/21 Range/Units 08:13 10:27 RBC (4.2-5.4) M/uL Hgb (12.0-16.0) g/dL Hct (37-47) % MCHC (32-36) g/dL RDW Std Deviation (36.4-46.3) fL RDW Coeff of Chacorta (11.5-14.5) % MPV (7.4-10.4) fL Lymph # (Auto) (1.2-3.4) K/uL PT (9.0-12.0) Seconds INR (0.9-1.1) APTT (21.0-31.0) Seconds D-Dimer 6960 H* (0-500) ug/L FEU Glucose (70-99(Fasting)) mg/dl Urine Protein Trace H (Negative) Urine Ketones Trace H (Negative) Urine Blood 3+ H (Negative) Ur Leukocyte Esterase Trace H (Negative) Urine WBC (Auto) 5-10 H (0-5) /hpf Urine RBC (Auto) >30 H (0-4) /hpf U Epithel Cells (Auto) 20-30 H (0-5) /lpf Diagnostic Findings Chest X-Ray 09/15/21 07:37 XR chest 1V portable HISTORY: 70 years-old Female Chest Pain acute atypical chest pain COMPARISON: Chest radiograph 09/25/2020 TECHNIQUE: Portable AP view of the chest FINDINGS: The cardiomediastinal and hilar silhouettes are within normal limits. Descending thoracic aortic tortuosity. No pneumothorax, pleural effusion, airspace consolidation or overt pulmonary edema. Subacute to chronic appearing fractures of the anterolateral right fourth through sixth ribs appear new from prior. Degenerative changes of the shoulders and spine. Cervical spinal fusion hardware. IMPRESSION: No acute process. ACT 112: Negative or not required by law. The above report was generated using voice recognition software. It may contain grammatical, syntax or spelling errors. Electronically signed by: Tima Salguero M.D. 09/15/2021 8:00 AM Venous Doppler Study 09/15/21 07:44 LEFT LOWER EXTREMITY VENOUS DOPPLER HISTORY: Acute pain and swelling of the left lower leg rodvt COMPARISON STUDY: Doppler study 09/25/2017 FINDINGS: There is normal compressibility, flow, and augmentation within the left lower extremity deep venous system. IMPRESSION: No DVT within the left lower extremity. ACT 112: Negative or not required by law. Electronically signed by: Tima Salguero M.D. 09/15/2021 9:54 AM Chest CTA 09/15/21 09:49 CT ANGIOGRAPHY OF THE CHEST, PULMONARY EMBOLUS PROTOCOL CLINICAL HISTORY: Shortness of breath. Left leg pain and swelling. Evaluate for pulmonary embolus. COMPARISON STUDY: Chest radiograph performed earlier today. Chest CT September 20, 2016. TECHNIQUE: Following IV administration of 121 mL of Optiray, helical axial images of the chest were obtained utilizing the pulmonary embolus protocol. Maximal intensity projections and sagittal and coronal reformats were viewed on an independent 3D workstation. IV contrast was administered without complication. Automated exposure control was utilized for the study. A dose lowering technique was utilized adhering to the principles of ALARA. CT DOSE: 362.62 mGy.cm FINDINGS: Note is made of a small fat attenuation segmental pulmonary embolus within the segmental branch to the apical segment of the right upper lobe shown on axial image 186 of 283. No additional pulmonary emboli are noted. There is significant dilatation of the main pulmonary artery, measuring 4.7 cm in caliber. Moderate cardiomegaly is noted. There is mild dilatation of the ascending aorta. No thoracic lymphadenopathy is present. No pneumothorax or pleural effusion is noted. No pulmonary infarct. Multiple small pulmonary nodules are unchanged since CT of September 20, 2016. These are benign. Old bilateral rib fractures are noted. Several healing right-sided rib fractures are present. 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 There is a suspected segment 7 hepatic cyst. IMPRESSION: 1. Small fat attenuation segmental pulmonary embolus within the right upper lobe. This suggests fat embolism although the etiology and clinical significance of this finding is uncertain. Findings discussed with Dr. Correa at time of dictation. 2. Dilatation of the main pulmonary artery suggestive of pulmonary arterial hype rtension. 3. Cardiomegaly. ACT 112: Negative or not required by law. Electronically signed by: Ruben Austin M.D. 09/15/2021 11:26 AM Medications Administered Discontinued Medications Aspirin (Aspirin Chew 324 Mg) 324 mg PO NOW STA Stop: 09/15/21 07:38 Last Admin: 09/15/21 08:03 Dose: 324 mg Documented by: [id number] Ioversol (Optiray 320 125ml) 121 ml IV ONCE ONE Stop: 09/15/21 11:05 Last Admin: 09/15/21 11:05 Dose: 121 ml Documented by: [id number] ECG Additional Comments: Normal sinus rhythm Right bundle branch block Abnormal ECG When compared with ECG of 27-APR-2018 15:32, No significant change was found Code Status & VTE Plan Code Status CODE: FULL VTE: SCDS, Lovenox 80mg BID, VTE Prophylaxis Plan VTE Prophylaxis will be ordered: Yes Supervising Physician Co-Signing Physician Notes TRAUMA DIRECTOR Supervision note: I have personally seen and examined the patient and discussed and verified the keating points of the history and physical along with the plan with LOURDES Guzman with the following exceptions and/or additions: Patient is 70-year-old female with history noted as above, here with left lower extremity pain and shortness of breath No fevers or chills, no productive sputum. She was concerned mostly about recurrence of left lower extremity DVT Found incidentally to have a fat embolism on CT angiogram of the chest, but do not suspect this is acute proBNP negative and no evidence of pulmonary edema on imaging. She does however have evidence of pulmonary artery hypertension on imaging History and ROS reviewed as above Vitals reviewed Gen: AAOx3, NAD HEENT: Anicteric sclerae, EOMI CV: RRR no mgr nl S1S2 Pulm: CTAB no wcr Abd: +BS soft NT ND no masses or hernias Ext: No edema, 2+ DP pulses, well-healed incisional scars and with mild residual hematoma on the right lateral thigh, no tenderness to palpation over left p osterior thigh or knee Skin: No rashes, warm/dry Neuro: Full strength throughout Labs and rads reviewed, ECG reviewed 70-year-old female here with left lower extremity pain, shortness of breath, li ira secondary to acute on chronic diastolic CHF and pulmonary hypertension Check echocardiogram Appreciate cardiology input Consider pulmonology evaluation as an outpatient for shortness of breath and pulmonary hypertension Continue therapeutic anticoagulation dosing with Lovenox as a bridge until Coumadin is restarted if no EGD planned for tomorrow Left lower extremity pain seems to be resolved now and Doppler is negative for DVT, check [id number] acute Consider further imaging of left lower extremity if pain recurs and is severe again along with consultation with orthopedics Expect she can likely be discharged home tomorrow, but would recommend a two- step walk test prior to discharge to assess need for exertional O2. Also needs outpatient sleep study given her significant pulmonary hypertension PG Care Time/CCT Total # of Minutes Spent Total Time Spent with Patient: Total time spent is greater than 50% in coordination of care (as documented) at patient's floor/unit and/or counseling patient: Coding Level of Care Code INT OBSERVATION CARE 69M LVL 3 Diagnoses Embolism, fat T79.1XXA Encounter type: initial encounter Hx pulmonary embolism Z86.711 Obesity E66.9 Hypothyroidism, unspecified E03.9 Esophageal reflux K21.9 Atrial enlargement, bilateral I51.7 Diastolic CHF I50.30 Femur fracture S72.90XA Shortness of breath R06.02 Lower extremity pain M79.606 (1) Embolism, fat Encounter type: initial encounter Qualified Code(s): T79.1XXA - Fat embolism (traumatic), initial encounter
[2021-09-15 14:36] LABS: Magnesium 2.3 mg/dl (1.7-2.4)
[2021-09-15] MEDS ORDERED: FUROSEMIDE INJ 20 MG/2 ML VIAL IV ONE (14:36)
--- NOTE | 2021-09-15 16:11 | XRay Report ---
XR knee LT 3V HISTORY: 70 years-old Female post surgical- new pain . Pain of the left knee COMPARISON: Left knee radiographs 10/01/2020 TECHNIQUE: 3 views of the left knee FINDINGS: Left knee total joint arthroplasty. Demineralized appearance of the bones. Partially imaged intramedu llary canal of the femur with 2 distal cannulated screws fixating a chronic femoral diaphyseal fractu re deformity. Small joint effusion with mild circumferential soft tissue swelling of the knee. IMPRESSION: 1. Small joint effusion without acute fracture or dislocation. 2. Fixated chronic appearing fracture deformity of the left femur 3. Total joint arthroplasty. ACT 112: Negative or not required by law. The above report was generated using voice recognition software. It may contain grammatical, syntax o r spelling errors. Electronically signed by: Tima Salguero M.D. 09/15/2021 4:10 PM
[2021-09-15] MEDS ORDERED: ONDANSETRON INJ 2 MG/ML 2 ML VIAL IV PRN (16:16)
[2021-09-15] MEDS ORDERED: ACETAMINOPHEN 325 MG TAB PO PRN (16:16)
[2021-09-15] MEDS ORDERED: CARISOPRODOL 350 MG TABLET PO PRN (16:16)
--- NOTE | 2021-09-15 16:17 | XRay Report ---
XR hip LT 2V w pelvis HISTORY: 70 years-old Female post surgical new pain . Pain of the pelvis and left hip COMPARISON: Left knee radiographs of same day, left femur radiographs 06/21/2018 TECHNIQUE: AP view of the pelvis with 2 views of the hips FINDINGS: Contrast is noted within the distended urinary bladder. Pelvic basin phleboliths. Postoperative correa es of the lower lumbar spine. The demineralized appearance of the bones. Mild right with moderate to severe left hip osteoarthritis. No acute fracture or dislocation identified. There is a hinged right knee total joint arthroplasty. Large plate and screw fusion with cerclage wires of the right femur. N o evidence of hardware complication. Left knee total joint arthroplasty. Small left knee joint effusi on. Elongated medullary keagan of the left femur fixates a subacute to chronic appearing femoral diaphys eal fracture deformity. Lucency along superior margin of the fracture line suggests incomplete bony h ealing. IMPRESSION: 1. No acute fracture or dislocation. 2. Bilateral knee total joint arthroplasties with bilateral femoral ORIF changes. 3. Mid left femoral diaphyseal cortical lucency is suggestive of incomplete bony healing. 4. Small left knee joint effusion. ACT 112: Negative or not required by law. The above report was generated using voice recognition software. It may contain grammatical, syntax o r spelling errors. Electronically signed by: Tima Salguero M.D. 09/15/2021 4:16 PM
[2021-09-15] MEDS ORDERED: MECLIZINE HCL 25 MG TAB PO PRN (16:32)
[2021-09-15] MEDS: POLYETHYLENE (MIRALAX) 17 GM PACK PO SCH (18:06)
[2021-09-15] MEDS: ENOXAPARIN 80 MG/0.8 ML SYR SQ SCH (18:06)
[2021-09-15] MEDS ORDERED: clonazePAM 0.5 MG TAB PO SCH (21:00)
[2021-09-15] MEDS ORDERED: SPIRONOLACTONE 25 MG TAB PO SCH (21:00)
[2021-09-15] MEDS: cephALEXin 500 MG CAP PO SCH (21:12)
[2021-09-15] MEDS: PANTOprazole 40 MG TAB PO SCH (21:13)
[2021-09-15] MEDS: VENLAFAXINE HCL XR 150 MG CAPXR PO SCH (21:38)
[2021-09-16] MEDS ORDERED: MELATONIN 3 MG TAB PO PRN (00:01)
[2021-09-16] MEDS ORDERED: KETOROLAC TROMETHAMINE 15 MG/ML VIAL IV ONE (02:21)
[2021-09-16] MEDS: ENOXAPARIN 80 MG/0.8 ML SYR SQ SCH (06:02)
[2021-09-16] MEDS ORDERED: LEVOTHYROXINE SODIUM 112 MCG TABLET PO SCH (06:30)
[2021-09-16 07:23] LABS: Basophils # (auto) 0.01 K/uL (0-0.2); Basophils % (auto) 0.2 %; Eosinophils # (auto) 0.15 K/uL (0-0.5); Eosinophils % (auto) 3.1 %; Hematocrit (blood only) 30.3 % (37-47); Hemoglobin 9.6 g/dL (12.0-16.0); Immature Granulocytes # (auto) 0.01 K/uL (0.00-0.02); Immature Granulocytes % (auto) 0.2 %; Lymphocytes # (auto) 1.12 K/uL (1.2-3.4); Lymphocytes % (auto) 23.2 %; Mean Corpuscular Hemoglobin 30.7 pg (25-34); Mean Corpuscular Hgb Conc 31.7 g/dL (32-36); Mean Corpuscular Volume 96.8 fL (80-100); Mean Platelet Volume 11.7 fL (7.4-10.4); Monocytes # (auto) 0.38 K/uL (0.11-0.59); Monocytes % (auto) 7.9 %; Neutrophils # (auto) 3.15 K/uL (1.4-6.5); Neutrophils % (auto) 65.4 %; Platelet Count 198 K/uL (130-400); RDW Coefficient of Variation 14.6 % (11.5-14.5); RDW Standard Deviation 51.1 fL (36.4-46.3); Red Blood Count 3.13 M/uL (4.2-5.4); White Blood Count 4.82 K/uL (4.8-10.8)
[2021-09-16 07:25] LABS: Base Excess ABG 2.9 mEq/L (-9-1.8); HCO3 ABG 26 mmol/L (19-24); Oxygen Saturation ABG 96.3 % (90-95); PCO2 ABG 36 mmHg (35-46); PO2 ABG 77 mmHg (80-95); pH ABG 7.49 (7.35-7.45)
[2021-09-16 07:41] LABS: Allen Test Pos (Pos)
[2021-09-16 07:45] LABS: BUN Creatinine Ratio 15.4 (10-20); Calcium 8.6 mg/dl (8.5-10.1); Est GFR (African American) 51.1 ml/min; Est GFR (Non-African American) 44.1 ml/min
[2021-09-16 08:00] LABS: INR 1.5 (0.9-1.1); Prothrombin Time 15.2 Seconds (9.0-12.0)
[2021-09-16] MEDS ORDERED: DEXTROAMPHETAMINE/AMPHETAMINE ER 10 MG CAP PO SCH (08:00)
[2021-09-16] MEDS: VENLAFAXINE HCL XR 150 MG CAPXR PO SCH (08:20)
[2021-09-16] MEDS: cephALEXin 500 MG CAP PO SCH ×2 (08:21→11:41)
[2021-09-16] MEDS: PANTOprazole 40 MG TAB PO SCH (08:21)
[2021-09-16] MEDS: POLYETHYLENE (MIRALAX) 17 GM PACK PO SCH (08:21)
[2021-09-16] MEDS ORDERED: rifAMPin 300 MG CAPSULE PO SCH (09:00)
[2021-09-16] MEDS ORDERED: FOLIC ACID 1 MG TAB PO SCH (09:00)
[2021-09-16] MEDS ORDERED: OXYBUTYNIN CHLORIDE XL 5 MG TABCR PO SCH (09:00)
[2021-09-16] MEDS ORDERED: MIRABEGRON ER 25 MG TAB PO SCH (09:00)
[2021-09-16] MEDS ORDERED: CALCIUM 600MG + VIT D 400 IU TAB PO SCH (09:00)
--- NOTE | 2021-09-16 10:15 | Communication Note ---
Date of Service: September 16, 2021 Patient was scheduled for outpatient endoscopic evaluation today for chronic anemia. Unfortunately, prior to that she developed shortness of breath. She presented to the ED and was noted to have acute on chronic diastolic heart failure along. She also has a PE & fat embolism noted. Due to these acute issues, our office will reschedule patient for outpatient endoscopic evaluation when her acute issues have resolved. Agree with JENNIFER Bob as above Outpatient workup to take place when acute issues have resolved.
--- NOTE | 2021-09-16 11:17 | Cardiology Consultation ---
Date of Consultation September 16, 2021 Assessment & Plan (1) Hx pulmonary embolism: --Provoked submassive PE 02/2016 -- on anticoagulation with Xarelto indefinitely 2. Recent bilateral periprosthetic hip fractures complicated by right hip abscess and MSSA 3. Anemia 4. Dilated Main pulmonary artery 5. Small fat embolism 6. Multiple sclerosis 7. Chronic venous insufficiency Clinically looks well today, better than has appeared at recent outpatient visits. No signs of heart failure on exam today. Reviewed CTA, venous duplex study and echocardiogram obtained today. No evidence of DVT/PE. Fat embolism appears to be a small, incidental finding. PA large but dimensions similar to study 4 years ago. Tricuspid regurgitation well visualized on echocardiogram and accurate for estimation of PA pressures. No evidence of pulmonary hypertension or elevated CVP on echocardiogram. Do not feel additional invasive testing needed at this time for evaluation of pulmonary hypertension. Agree with further work-up/management of OHS/JOE as an outpatient. Question if fatigue related to worsening anemia. Continue anticoagulation with Coumadin while on rifampin. From a cardiac standpoint okay to proceed with EGD as an outpatient. Will need Lovenox bridging. From a cardiac standpoint okay with discharge today. Follow-up as scheduled. History of Present Illness Attending Physician: Mohan Akers History of Present Illness Ms. Segura is a 70 year old female with a history of provoked submassive PE 2016 on indefinite anticoagulation and chronic venous insufficiency post bilateral GSV RFA 11/2019 admitted with left lower extremity pain reminiscent of prior DVT and exertional fatigue. Cardiology consulted for concern of worsened pulmonary hypertension due to chest CT findings. Recent medical history remarkable for fall from a ladder with resulting bilateral periprosthetic femur fractures requiring operative fixation bilaterally with plating on the right, retrograde nail in the left at [facility], discharged 05/30/2021. Readmitted 06/24/2021 with right hip periprosthetic abscess and MSSA bacteremia. Required 2 operative washouts and started on Ancef and rifampin per ID. Due to rifampin interaction with Xarelto switch to treatment dose twice daily Lovenox. Post hospital course complicated by seroma at incision site and anemia down to 6.4 requiring intermittent transfusion/iron infusion. Discharged to home from rehab 07/17. ID has continued Keflex/rifampin and now on anticoagulation with Coumadin. She has also had issues with persistent nausea and has lost almost 20 pounds. Was scheduled to undergo EGD/colonoscopy this week with Dr. Daniel. Over the weekend reports with doing minimal activity was notably more fatigu ed/mildly short of breath. No associated chest pain. Yesterday she developed pain behind her left knee which is reminiscent of prior DVT and presented to ED. D-dimer elevated. Venous duplex negative for DVT (some continuous flow in common femoral vein). CTA was negative for PE, did show small right segmental fat embolism. Main pulmonary artery dilated at 4.7 (4.[address] in 2017). On admission was given one dose of IV Lasix 20 mg. Today reports feeling well. Left leg pain resolved. Breathing at recent baseline. No arrhythmia on telemetry. Echo shows normal biventricular function, normal estimated PA, RA pressures. Past History: Other medical issues include multiple sclerosis, anxiety/depression, hypothyroidism, osteoarthritis/degenerative disc disease, and obesity status post gastric bypass. VTE diagnosed February of 2016 after presented to PCP with worsening left lower extremity pain with a palpable cord 2 months after back surgery with prolonged immobilization. Duplex positive for posterior tibial DVT. Chest CTA showed extensive bilateral pulmonary emboli, right > left, with suggestion of right heart strain and as a result patient life flighted to [facility] for consideration of thrombolytics. In [place] was noted to be hemodynamically stable, with minimal 02 requirements and decision was made to treat with anticoagulation alone. She was started on Xarelto and discharged on on hospital day 3. In August 2016 she underwent chest CTA for increased dyspnea which was negative for PE. An echo at that time noted normal LV systolic function, normal RV size and no significant pulmonary hypertension. Prior vascular studies: Echo 08/2016: Mild LVH, LVEF 65%, grade 1 diastolic dysfunction, normal RV size and function. No valve pathology. Normal estimated PASP Venous reflux ultrasound 11/2014: Right GSV dilated with reflux, left GSV dilated, no reflux Allergies Allergy/AdvReac Type Severity Reaction Status Date / Time tetracycline Allergy Severe Anaphylaxis Verified 09/15/21 09:47 morphine Allergy Intermediate Rash, Verified 09/15/21 09:47 itching pregabalin [From Lyrica] Allergy Intermediate Feet Verified 09/15/21 09:47 swelling oxycodone Allergy Mild Rash, Verified 09/15/21 09:47 itching loratadine Allergy Unknown Unknown Verified 09/15/21 09:47 ropinirole Allergy Unknown Unknown Verified 09/15/21 09:47 Sulfa (Sulfonamide Allergy Unknown UNKNOWN Verified 09/15/21 09:47 Antibiotics) Home Medications Medication Instructions Recorded Confirmed Type ascorbic acid (vitamin C) 500 mg 500 mg PO QAM tab 05/08/19 09/15/21 History tablet calcium carbonate 600 mg-vitamin 2 tab PO QAM tab 05/08/19 09/15/21 History D3 10 mcg (400 unit) tablet estradiol 1 g PV 2XWK #42.5 g 03/20/20 09/15/21 Rx ferrous sulfate 325 mg (65 mg 325 mg PO QDL 09/15/20 09/15/21 History iron) tablet (iron) magnesium 250 mg tablet 250 mg PO HS 09/15/20 09/15/21 History omega 9-jsg-aba-fish oil 100 1 cap PO QAM 09/15/20 09/15/21 History mg-160 mg-1,000 mg capsule (Fish Oil) spironolactone 50 mg tablet 50 mg PO PM 09/15/20 09/15/21 History celecoxib 200 mg capsule 200 mg PO QAM #90 cap 01/22/21 09/15/21 Rx fountain syringes applicator #1 ea 03/16/21 09/08/21 Rx clonazepam 1 mg tablet 1.5 mg PO HS 03/27/21 09/15/21 History ergocalciferol (vitamin D2) 1,250 50,000 unit PO Q14D 03/27/21 09/15/21 History mcg (50,000 unit) capsule nystatin 100,000 unit/gram topical 1 applic TOPICAL BID PRN 03/27/21 09/15/21 History cream cyanocobalamin (vitamin B-12) 100 mcg SQ MONTHLY #3 ml 04/09/21 09/15/21 Rx 1,000 mcg/mL injection solution insulin syringe-needle U-100 1 mL #10 ea 04/09/21 09/08/21 Rx 31 gauge x 5/16" ([facility]ocate Syringes) dextroamphetamine-amphetamine ER 30 mg PO QAM #90 cap 06/01/21 09/15/21 Rx 30 mg 24hr capsule,extend release (Adderall XR) levothyroxine 112 mcg tablet 112 mcg PO QAM #30 tab 06/23/21 09/15/21 Rx carisoprodol 350 mg tablet 350 mg PO TID PRN 07/20/21 09/15/21 History meclizine 25 mg tablet 25 mg PO DAILY PRN 07/20/21 09/15/21 History oxybutynin chloride 5 mg 5 mg PO QAM 07/20/21 09/15/21 History tablet,extended release 24 hr (Ditropan XL) tramadol 50 mg tablet 50 mg PO HS PRN 10 Days #30 tab 08/24/21 09/15/21 Rx pantoprazole 40 mg tablet,delayed 40 mg PO BID #60 tab 09/08/21 09/15/21 Rx release 1 tab PO QAM 09/11/21 09/15/21 History cephalexin 500 mg tablet 500 mg PO TID 09/11/21 09/15/21 History folic acid 1 mg tablet 1 mg PO QAM 09/11/21 09/15/21 History lactobacillus combination no.4 3 3,000 mmu cells PO QAM 09/11/21 09/15/21 History billion cell capsule (Probiotic) venlafaxine 150 mg tablet,extended 150 mg PO BID 09/11/21 09/15/21 History release 24 hr warfarin 5 mg tablet 5 mg PO UD 09/11/21 09/15/21 History ondansetron HCl 4 mg tablet 4 mg PO Q8H PRN #20 tab 09/14/21 09/15/21 Rx mirabegron 50 mg tablet,extended 50 mg PO DAILY 09/15/21 09/15/21 History release 24 hr (Myrbetriq) rifampin 300 mg capsule 600 mg PO DAILY 09/15/21 09/15/21 History Patient History Medical History (Updated 09/15/21 @ 23:16 by Judith Covarrubias MD) Acid reflux controlled Anemia Anticoagulant long-term use Anxiety Chronic cystitis Chronic venous insufficiency Degenerative disc disease Depression Femur fracture BL - fall from ladder -- 04/2021 Hiatal hernia History of venous thromboembolism DVT LLE > PE post-op (2015), on warfarin Hx pulmonary embolism Hyperlipidemia per records, pt denies Hypothyroidism MS (multiple sclerosis) reason for Adderral per pt, follows with [facility] neurology (Dr. [place] [facility]) > stable Nausea reason for EGD Obesity Osteoarthritis Osteoporosis Restless leg syndrome Spinal stenosis Transient ischemic attack (TIA) 2002, follows with [facility] neurology (Dr. Tiki Lopez) Urinary incontinence, urge Vision loss, left eye r/t "neuropathy" per pt Surgical History H/O gastric bypass H/O ovarian cystectomy H/O rectocele repair History of arthroplasty of left knee History of bladder surgery + vaginal mesh History of cataract surgery Right History of colonoscopy History of esophagogastroduodenoscopy (EGD) History of knee replacement Right x2 Left TKA (10/01/20): LMA 5.0 + PNB at [facility] (done under General anesthesia > hx MS) History of left knee replacement History of lumbar fusion x2 History of open reduction and internal fixation (ORIF) procedure BL Femur Hx of fusion of cervical spine No ROM limitations per pt Hx of LASIK Hx of melanoma excision Shoulder Hx of prior ablation treatment B/L LE S/P carpal tunnel release R/L S/P debridement x 2 (post op infection ORIF femur 04/2021) - reason for abx S/P epidural steroid injection S/P hysterectomy with oophorectomy S/P tonsillectomy [place] teeth extracted Family History Sister Breast cancer Aunt Breast cancer maternal Father Prostate cancer Brother Prostate cancer Family/Other Bladder cancer Heart disease Nephrolithiasis Hypertension Other Slow to wake up after anesthesia Denies family history of Ovarian cancer Myocardial infarction Colorectal cancer Social History Smoking Status: Never smoker Second Hand Exposure: No; Do You Dip or Chew Tobacco: No; Tobacco Cessation Education Requested by Patient: No Hx Alcohol Use: No Hx Substance Use: No Preferred Language: Monegasque Communication Ability: Effective Visual Impairment: No Limitations Hearing Ability: Use of Hearing Aid Campus Monitor Required: No Beliefs That Will Affect Care: None marital status: Single Current Living Situation: Family Current Living Situation Comment: daughter and son in law current occupational status: retired Feels Safe at Home: Yes Safety Concerns: Feels Safe At This Time Childhood Exposure to Second-Hand Smoke: Yes Dental Care, Regularly: No Physical Activity Frequency Comment: restricted with activity due to ms Seatbelt Use: always Sunscreen Use: Yes Assistive Devices: Glasses and Walker Review of Systems Review of Systems: All systems reviewed & are unremarkable except as noted in HPI & below Physical Exam Physical Exam: General: Looks well HEENT: Sclerae anicteric Lungs: Clear to auscultation bilaterally Cardiac: Regular rate and rhythm, no murmurs Vascular: 2+ radial Abdomen: Soft, nontender Extremities: Well perfused, trace edema. Residual telangiectasias, reticular veins. Surgical incisions well-healed Neuro: Nonfocal Psych: Alert orient x3, normal affect and mood Results & Data ([facility]) Vital Signs (Past 12 Hours) Vital Signs Temp Pulse Resp BP Pulse Ox 09/16/21 07:30 98.2 F 73 14 96/41 L 95 09/16/21 03:00 98.2 F 64 20 112/67 93 PG Care Time/CCT Total # of Minutes Spent Total Time Spent with Patient: Total time spent is greater than 50% in coordination of care (as documented) at patient's floor/unit and/or counseling patient: Coding Level of Care Code 97991 Initial Inpt Care Lvl 3 Diagnoses Hx pulmonary embolism Z86.711
[2021-09-16] MEDS ORDERED: FERROUS SULFATE 325 MG TAB PO SCH (11:30)
--- NOTE | 2021-09-16 11:32 | XCELERA ---
[id number]
--- NOTE | 2021-09-16 16:13 | Discharge Summary ---
Date of Service date of admission - September 15, 2021 date of discharge - September 16, 2021 Admission HPI Per Admitting Provider 70 YOF with past medical history of: MS, TIA, Hypothyroidism, incontinence, rectocele/cystocele repair 2005, obesity, gastric bypass, laminectomy with decompression and fusion, chronic cystitis, GERD, HLD, venous insufficiency (right saphenous vein shutdown), DVT with submassive PE (2016) on DOAC recently changed to VKA. Patient comes to the EMD today for complaints of dyspnea and left popliteal and quad pain and concern for DVT, subsequently found to have pulmonary artery fat embolism and subtherapeutic INR. Patient states that she was making her bed about 2 days ago when she developed an quick onset shortness of breath with a heaviness that felt like she was unable to get deep enough breath. This resolved on its own and was not associated with any other symptoms. She also reports that this had happened sometime last week. Her left posterior knee pain started last night and tracked up into her left posterior quadriceps. She had a ultrasound of her left lower leg completed in the EMD that was negative for acute DVT, she had a CTA of her chest which revealed small fat attenuation segmental pulmonary embolism to the right upper lobe. Patient denies any recent trauma or falls since her episode in April- so unsure of when this may have occurred. She has a CTA of the chest performed in April on arrival to the trauma bay which did not note any PE but continued to note dilated pulmonary artery, although with infection this could have also contributed to this. The patient lower bilateral legs are mildly edematous, which is new for her and she remains somewhat fatigued. She is still able to perform her PT but just feels as she is getting more fatigued. She reports that she does not wear CPAP at home, and reports she had a sleep study many years ago however, unable to find in our system. For her INR she has been having difficulty with food tasting differently and is associated with increased in nausea with vomiting which has decreased her food intake and possibly not keeping her medications down. She was scheduled for GI evaluation tomorrow for likely an EGD. Patient will be observed for her symptomatology, obtain ECHO evaluate her RVSP and function, consider increasing diuretic, Lovenox for her subtherapeutic INR. GI consult for evaluation of continuing planned EGD - and will adjust her Coumadin based on intervention plans. Currently feel her symptoms are consistent with right heart failure from worsening elevation of her PA pressures. Patient with history of falling off ladder in May 21, 2021 fracturing bilateral femurs, was transferred to [facility]- she was diagnosed with midshaft oblique fracture of the right femur and displaced oblique fracture to the mid distal shaft of the left femur. She underwent Left intramedullary nailing of her femur and ORIF to the right periprosthetic distal femur fracture. This was complicated by MSSA bacteremia and debridement of her right femur as wound culture also with MSSA. She had an TTE performed that was negative for any valve abnormalities and normal EF and wall motion. She completed IV Ancef and Rifampin- where she was transitioned to VKA for completion of this. She was transitioned to Keflex indefinite following this. She states she remains on Rifampin and had 30 day supply that will finish what appears on . She is also noted to be subtherapeutic on her INR. Her COVID test on admission is: NEGATIVE Principal Diagnosis 1. left leg pain - resolved 2. transient dyspnea - resolved; etiology? 3. incidental finding of fat embolism on CTA chest - likely old Discharge Exam gen - NAD mouth - MMM neck - no JVD heart - RRR, s1 s2 lungs - CTA b/l abd - soft, NT, ND, BS+ ext - trace edema, pulses 2+ b/l musculo - left leg - no abnormalities, no pain with palpation of any location, no dixon's cyst on left Discharge Data Allergies Allergy/AdvReac Type Severity Reaction Status Date / Time tetracycline Allergy Severe Anaphylaxis Verified 09/15/21 09:47 morphine Allergy Intermediate Rash, Verified 09/15/21 09:47 itching pregabalin [From Lyrica] Allergy Intermediate Feet Verified 09/15/21 09:47 swelling oxycodone Allergy Mild Rash, Verified 09/15/21 09:47 itching loratadine Allergy Unknown Unknown Verified 09/15/21 09:47 ropinirole Allergy Unknown Unknown Verified 09/15/21 09:47 Sulfa (Sulfonamide Allergy Unknown UNKNOWN Verified 09/15/21 09:47 Antibiotics) Consultations [facility] [place] Procedures Performed Echocardiogram - * EF 60-65% * normal RV size/function * normal valvular function Ordered Studies Chest X-Ray 09/15/21 07:37 XR chest 1V portable HISTORY: 70 years-old Female Chest Pain acute atypical chest pain COMPARISON: Chest radiograph 09/25/2020 TECHNIQUE: Portable AP view of the chest FINDINGS: The cardiomediastinal and hilar silhouettes are within normal limits. Descending thoracic aortic tortuosity. No pneumothorax, pleural effusion, airspace consolidation or overt pulmonary edema. Subacute to chronic appearing fractures of the anterolateral right fourth through sixth ribs appear new from prior. Degenerative changes of the shoulders and spine. Cervical spinal fusion hardware. IMPRESSION: No acute process. ACT 112: Negative or not required by law. The above report was generated using voice recognition software. It may contain grammatical, syntax or spelling errors. Electronically signed by: Tima Salguero M.D. 09/15/2021 8:00 AM Venous Doppler Study 09/15/21 07:44 LEFT LOWER EXTREMITY VENOUS DOPPLER HISTORY: Acute pain and swelling of the left lower leg rodvt COMPARISON STUDY: Doppler study 09/25/2017 FINDINGS: There is normal compressibility, flow, and augmentation within the left lower extremity deep venous system. IMPRESSION: No DVT within the left lower extremity. ACT 112: Negative or not required by law. Electronically signed by: Tima Salguero M.D. 09/15/2021 9:54 AM Chest CTA 09/15/21 09:49 CT ANGIOGRAPHY OF THE CHEST, PULMONARY EMBOLUS PROTOCOL CLINICAL HISTORY: Shortness of breath. Left leg pain and swelling. Evaluate for pulmonary embolus. COMPARISON STUDY: Chest radiograph performed earlier today. Chest CT September 20, 2016. TECHNIQUE: Following IV administration of 121 mL of Optiray, helical axial images of the chest were obtained utilizing the pulmonary embolus protocol. Maximal intensity projections and sagittal and coronal reformats were viewed on an independent 3D workstation. IV contrast was administered without complication. Automated exposure control was utilized for the study. A dose lowering technique was utilized adhering to the principles of ALARA. CT DOSE: 362.62 mGy.cm FINDINGS: Note is made of a small fat attenuation segmental pulmonary embolus within the segmental branch to the apical segment of the right upper lobe shown on axial image 186 of 283. No additional pulmonary emboli are noted. There is significant dilatation of the main pulmonary artery, measuring 4.7 cm in caliber. Moderate cardiomegaly is noted. There is mild dilatation of the ascending aorta. No thoracic lymphadenopathy is present. No pneumothorax or pleural effusion is noted. No pulmonary infarct. Multiple small pulmonary nodules are unchanged since CT of September 20, 2016. These are benign. Old bilateral rib fractures are noted. Several healing right-sided rib fractures are present. 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 There is a suspected segment 7 hepatic cyst. IMPRESSION: 1. Small fat attenuation segmental pulmonary embolus within the right upper lobe. This suggests fat embolism although the etiology and clinical significance of this finding is uncertain. Findings discussed with Dr. Correa at time of dictation. 2. Dilatation of the main pulmonary artery suggestive of pulmonary arterial hypertension. 3. Cardiomegaly. ACT 112: Negative or not required by law. Electronically signed by: Ruben Austin M.D. 09/15/2021 11:26 AM Hip/Pelvis X-Ray 09/15/21 13:36 XR hip LT 2V w pelvis HISTORY: 70 years-old Female post surgical new pain . Pain of the pelvis and left hip COMPARISON: Left knee radiographs of same day, left femur radiographs 06/21/2018 TECHNIQUE: AP view of the pelvis with 2 views of the hips FINDINGS: Contrast is noted within the distended urinary bladder. Pelvic basin phleboliths. Postoperative changes of the lower lumbar spine. The demineralized appearance of the bones. Mild right with moderate to severe left hip osteoarthritis. No acute fracture or dislocation identified. There is a hinged right knee total joint arthroplasty. Large plate and screw fusion with cerclage wires of the right femur. No evidence of hardware complication. Left knee total joint arthroplasty. Small left knee joint effusion. Elongated medullary keagan of the left femur fixates a subacute to chronic appearing femoral diaphyseal fracture deformity. Lucency along superior margin of the fracture line suggests incomplete bony healing. IMPRESSION: 1. No acute fracture or dislocation. 2. Bilateral knee total joint arthroplasties with bilateral femoral ORIF changes. 3. Mid left femoral diaphyseal cortical lucency is suggestive of incomplete bony healing. 4. Small left knee joint effusion. ACT 112: Negative or not required by law. The above report was generated using voice recognition software. It may contain grammatical, syntax or spelling errors. Electronically signed by: Tima Salguero M.D. 09/15/2021 4:16 PM Knee X-Ray 09/15/21 13:36 XR knee LT 3V HISTORY: 70 years-old Female post surgical- new pain . Pain of the left knee COMPARISON: Left knee radiographs 10/01/2020 TECHNIQUE: 3 views of the left knee FINDINGS: Left knee total joint arthroplasty. Demineralized appearance of the bones. Partially imaged intramedullary canal of the femur with 2 distal cannulated screws fixating a chronic femoral diaphyseal fracture deformity. Small joint effusion with mild circumferential soft tissue swelling of the knee. IMPRESSION: 1. Small joint effusion without acute fracture or dislocation. 2. Fixated chronic appearing fracture deformity of the left femur 3. Total joint arthroplasty. ACT 112: Negative or not required by law. The above report was generated using voice recognition software. It may contain grammatical, syntax or spelling errors. Electronically signed by: Tima Salguero M.D. 09/15/2021 4:10 PM Hospital Course (1) Shortness of breath: Presented with shortness of breath and left lower extremity pain reminiscent of her previous DVT With incidental finding of fat embolism on CT angiogram chest which perhaps occurred during her previous femur fractures in 04/2021 Likely secondary to acute on chronic diastolic CHF and pulmonary hypertension as below Despite normal pulse ox at rest, would benefit from two-step walk test prior to discharge to assess for need for exertional O2 (2) Lower extremity pain: Left sided behind the knee and up the posterior thigh that was fairly severe prior to admission Now is improved Lower extremity Doppler negative for DVT X-rays taken of knee and hip She was just seen by her orthopedic surgeon 3 weeks ago and deemed to be doing well from a healing standpoint Perhaps was just a muscle cramp? Follow clinically (3) Embolism, fat: Unsure of chronicity/acuteness- Likely related to initial trauma or infection/osteo following. - This may be playing role in worsening her underlying pulmonary hypertension - No evidence of pulmonary edema and no oxygenation requirement (4) Esophageal reflux: Continue with PPI - GI consult for evaluation continuation or reschedule her EGD which was supposed to be for tomorrow -We will keep n.p.o. after midnight just in case (5) Hx pulmonary embolism: Chronic as above - Continue anticoagulation - transition to therapeutic Lovenox for now in case EGD still planned for tomorrow - pending GI evaluation - increase Coumadin for targeted INR (6) Femur fracture: As above- with MSSA wound with washout of the right hip as well as MSSA in the blood which she is on Rifampin and Keflex now for suppression - ID consult as note is unclear from previous documentation on continuation of rifampin ID consulted - If no rifampin needed any longer, can transition back to DOAC (7) Obesity: ? Obesity hypoventilation syndrome with chronically elevated HCO3 - ABG in am BMI 28.6 (8) Hypothyroidism, unspecified: Continue synthroid TSH normal at 2.5 in 07/2021 Discharge Plan Discharge Items Patient Disposition: Home - Self-Care Reason For Visit: Shortness of breath, left leg pain Discharge Diagnosis: 1. shortness of breath - resolved; exact cause uncertain. "fat embolism" seen on CT scan - likely OLD. 2. left leg pain - resolved; severe muscle cramp? 3. subtherapeutic INR - 1.5 on 09/16/21. 4. anemia Activity: Resume your previous activity Activity Comment: as tolerated Non-emergency contact: Primary Care Provider and [employer] Call non-emergency contact if: you have any medication questions and your symptoms worsen Follow-up/Referrals: Lalo Tamayo MD [Primary Care Provider] - 09/23/21 11:15 am (1 week) Rohit Starkey MD [Physician] - (please see Dr Starkey' office on Tuesday, 09/18 for your next INR check.) Diet: Carb Consistent or DM2 and Heart Healthy Addtl Attending Provider Instructions: Mrs Segura, You were seen for the problems listed above in "discharge diagnoses." You underwent an extensive work-up for the shortness of breath including CAT scan of the lungs, echocardiogram, heart monitoring, etc. The CAT scan did NOT show pulmonary emboli (blood clots of the lungs). Incidentally we found a "fat embolism" which is something that we typically see in the midst of fractures of long bones (such as the femur) and operations to fix those types of fractures. Thus, the fat embolism is likely old and did not cause your symptoms. We also did not see pneumonia. Congestive heart failure was not suspected either. The exact cause of the shortness of breath was uncertain. Regarding the left leg pain - we did not find a DVT blood clot on ultrasound. X-rays of the left knee region did not show any specific cause of your leg pain. It is possible that you had had a severe muscle cramp that caused the pain. During your stay your INR was <2. Recommendations for your coumadin -- * today, 09/16/21 - take 10mg x 1 upon return home; this is recommended by Dr Starkey * 09/17/21 - take your coumadin as per your prior schedule/directions * have an INR check at Dr Starkey' office THIS 09/18/21 In addition to the above, please speak with Dr Starkey or Dr Tamayo about obtaining a sleep study. Finally, in light of your prior gastric bypass, your anemia, and frequent GI symptoms I would HOLD your celebrex if at all possible. Follow-up - see separate section Return to [facility] if - * you have fevers over 100 degrees * you have chest pains or recurrent shortness of breath * you see black, dark, or tarry stool when you have a bowel movement * any other concerns It was our pleasure to care for you at [facility]! Dr Akers Pending Studies at Discharge: No Stand-Alone Forms: [facility], Smoking Cessation Medications and DC Order Prescriptions: Continued estradiol 0.01 % (0.1 mg/gram) cream 1 g PV 2XWK Qty: 42.5 RF: 1 (DME) fountain syringes applicator Misc See Rx Instructions .Route Qty: 1 RF: 4 dextroamphetamine-amphetamine [Adderall XR] 30 mg capsule,extended release 24hr 30 mg PO QAM Qty: 90 RF: 0 levothyroxine 112 mcg tablet 112 mcg PO QAM Qty: 30 RF: 5 tramadol 50 mg tablet 50 mg PO HS PRN (Reason: pain) 10 Days Qty: 30 RF: 0 ondansetron HCl 4 mg tablet 4 mg PO Q8H PRN (Reason: nausea and vomiting) Qty: 20 RF: 1 ascorbic acid (vitamin C) 500 mg tablet 500 mg PO QAM RF: 0 calcium carbonate-vitamin D3 600 mg(1,500mg) -400 unit tablet 2 tab PO QAM RF: 0 cyanocobalamin (vitamin B-12) 1,000 mcg/mL solution 100 mcg SQ MONTHLY Qty: 3 RF: 5 meclizine 25 mg tablet 25 mg PO DAILY PRN (Reason: Vertigo) RF: 0 oxybutynin chloride [Ditropan XL] 5 mg tablet extended release 24hr 5 mg PO QAM RF: 0 carisoprodol 350 mg tablet 350 mg PO TID PRN (Reason: Muscle Spasm) RF: 0 pantoprazole 40 mg tablet,delayed release (DR/EC) 40 mg PO BID Qty: 60 RF: 3 ferrous sulfate [iron] 325 mg (65 mg iron) Tablet 325 mg PO QDL RF: 0 magnesium 250 mg Tablet 250 mg PO HS RF: 0 spironolactone 50 mg Tablet 50 mg PO PM RF: 0 Fish Oil 100-160-1,000 mg Capsule 1 cap PO QAM RF: 0 Hold Instructions: per pt clonazepam 1 mg tablet 1.5 mg PO HS RF: 0 nystatin 100,000 unit/gram cream 1 applic topical BID PRN (Reason: Skin Irritation) RF: 0 ergocalciferol (vitamin D2) 1,250 mcg (50,000 unit) capsule 50,000 unit PO Q14D RF: 0 Probiotic 3 billion cell Capsule 3,000 mmu cells PO QAM RF: 0 1 tab PO QAM RF: 0 warfarin 5 mg tablet 5 mg PO UD RF: 0 folic acid 1 mg tablet 1 mg PO QAM RF: 0 venlafaxine 150 mg tablet extended release 24 hr 150 mg PO BID RF: 0 cephalexin 500 mg Tablet 500 mg PO TID RF: 0 rifampin 300 mg capsule 600 mg PO DAILY RF: 0 Myrbetriq 50 mg tablet extended release 24 hr 50 mg PO DAILY RF: 0 Discontinued celecoxib 200 mg capsule 200 mg PO QAM Qty: 90 RF: 3 No Action (DME) BD Insulin Syringe 1 mL 25 x 1" syringe See Rx Instructions .Route Qty: 10 RF: 0 enoxaparin [Lovenox] 100 mg/mL syringe 90 mg subcut Q12H Qty: 10 RF: 3 Discharge Orders: Discharge Order (Routine); Ordered 09/16/21 Ordered By: Mohan Akers Admission Data Admit Date/Time: 09/15/21 13:15 Attending Provider: Mohan Akers Admit Provider: Judith Covarrubias Primary Care Provider: Lalo Tamayo Other Providers: Judith Covarrubias ; Elver Reese ; Rafiq Cabral ; Jesus Barajas I. ; Chuck An II ; Aliya Ramsey ; Jordan Villanueva ; Manish Borges ; Rohit Starkey ; Hong Daniel Other Interventions: Discharge Summary Assessment (RN) Last Done: 09/16/21 16:56 Coding Diagnoses Shortness of breath R06.02 Lower extremity pain M79.606 Embolism, fat T79.1XXA Encounter type: initial encounter Esophageal reflux K21.9 Hx pulmonary embolism Z86.711 Femur fracture S72.90XA Obesity E66.9 Hypothyroidism, unspecified E03.9
== END 2021-09-16 17:43 | disposition home or self-care (01) ==
LOC: ED 07:27 → EDINP 07:27 → SUATTDRO 13:15 → 2W 16:35

== ENCOUNTER 2022-03-08 08:23 | Inpatient (IN) ==
--- NOTE | 2022-02-17 14:57 | PAT Medication Instructions ---
Medication Instructions Date of Service February 17, 2022 Home Medications Medication Instructions Recorded estradiol 1 g vaginal 2XWK #42.5 grams 03/20/20 fountain syringes applicator #1 ea 03/16/21 cyanocobalamin (vitamin B-12) 100 mcg (0.1 mL) subcut MONTHLY #3 04/09/21 1,000 mcg/mL injection solution mL dextroamphetamine-amphetamine ER 30 mg PO QAM #90 caps 06/01/21 30 mg 24hr capsule,extend release (Adderall XR) insulin syringe-needle U-100 1 mL #10 ea 09/18/21 25 x 1" (BD Insulin Syringe) levothyroxine 112 mcg tablet See Rx Instructions .Route 10/16/21 .COMPLEX #90 tabs ergocalciferol (vitamin D2) 1,250 50,000 unit PO Q14D #6 caps 10/28/21 mcg (50,000 unit) capsule ondansetron HCl 4 mg tablet See Rx Instructions .Route 01/11/22 .COMPLEX #120 tabs pantoprazole 40 mg tablet,delayed See Rx Instructions .Route 01/11/22 release .COMPLEX #180 tabs venlafaxine 150 mg tablet,extended 150 mg PO BID #60 tabs 02/09/22 release 24 hr Continue as directed ascorbic acid (vitamin C) 500 mg tablet 500 mg PO QAM calcium carbonate 600 mg-vitamin D3 10 mcg (400 unit) tablet 2 tab PO QAM estradiol 1 g vaginal 2XWK ferrous sulfate 325 mg (65 mg iron) tablet (iron) 325 mg PO QDL magnesium 250 mg tablet 250 mg PO HS omega 0-oaf-mke-fish oil 100 mg-160 mg-1,000 mg capsule (Fish Oil) 1 cap PO QAM spironolactone 50 mg tablet 50 mg PO PM clonazepam 1 mg tablet 1.5 mg PO HS cyanocobalamin (vitamin B-12) 1,000 mcg/mL injection solution 100 mcg (0.1 mL) subcut MONTHLY dextroamphetamine-amphetamine ER 30 mg 24hr capsule,extend release (Adderall XR) 30 mg PO QAM meclizine 25 mg tablet 25 mg PO QAM PRN Vertigo oxybutynin chloride 5 mg tablet,extended release 24 hr (Ditropan XL) 5 mg PO QAM folic acid 1 mg tablet 1 mg PO QAM lactobacillus combination no.4 3 billion cell capsule (Probiotic) 3,000 mmu cells PO QAM mirabegron 50 mg tablet,extended release 24 hr (Myrbetriq) 50 mg PO HS levothyroxine 112 mcg tablet See Rx Instructions .Route .COMPLEX ergocalciferol (vitamin D2) 1,250 mcg (50,000 unit) capsule 50,000 unit PO Q14D ondansetron HCl 4 mg tablet See Rx Instructions .Route .COMPLEX pantoprazole 40 mg tablet,delayed release See Rx Instructions .Route .COMPLEX venlafaxine 150 mg tablet,extended release 24 hr 150 mg PO BID rivaroxaban 20 mg tablet (Xarelto) 20 mg PO PM ASK your prescriber and surgeon rivaroxaban 20 mg tablet (Xarelto) 20 mg PO PM estradiol 1 g vaginal 2XWK STOP taking 2 weeks before surgery (or as soon as possible if surgery is within 2 weeks) omega 8-hcy-ydr-fish oil 100 mg-160 mg-1,000 mg capsule (Fish Oil) 1 cap PO QAM DO NOT take the morning of surgery ascorbic acid (vitamin C) 500 mg tablet 500 mg PO QAM calcium carbonate 600 mg-vitamin D3 10 mcg (400 unit) tablet 2 tab PO QAM ferrous sulfate 325 mg (65 mg iron) tablet (iron) 325 mg PO QDL cyanocobalamin (vitamin B-12) 1,000 mcg/mL injection solution 100 mcg (0.1 mL) subcut MONTHLY dextroamphetamine-amphetamine ER 30 mg 24hr capsule,extend release (Adderall XR) 30 mg PO QAM oxybutynin chloride 5 mg tablet,extended release 24 hr (Ditropan XL) 5 mg PO QAM folic acid 1 mg tablet 1 mg PO QAM lactobacillus combination no.4 3 billion cell capsule (Probiotic) 3,000 mmu cells PO QAM ergocalciferol (vitamin D2) 1,250 mcg (50,000 unit) capsule 50,000 unit PO Q14D Take morning of surgery With a small sip of water, OTHERWISE NOTHING TO EAT OR DRINK AFTER MIDNIGHT: meclizine 25 mg tablet 25 mg PO QAM PRN Vertigo (if needed) levothyroxine 112 mcg tablet See Rx Instructions .Route .COMPLEX ondansetron HCl 4 mg tablet See Rx Instructions .Route .COMPLEX (if needed) pantoprazole 40 mg tablet,delayed release See Rx Instructions .Route .COMPLEX venlafaxine 150 mg tablet,extended release 24 hr 150 mg PO BID Take evening before surgery magnesium 250 mg tablet 250 mg PO HS spironolactone 50 mg tablet 50 mg PO PM clonazepam 1 mg tablet 1.5 mg PO HS mirabegron 50 mg tablet,extended release 24 hr (Myrbetriq) 50 mg PO HS ondansetron HCl 4 mg tablet See Rx Instructions .Route .COMPLEX (if needed) pantoprazole 40 mg tablet,delayed release See Rx Instructions .Route .COMPLEX venlafaxine 150 mg tablet,extended release 24 hr 150 mg PO BID Other Notes If you have any questions please call us at [phone] or [phone] or [phone] or [phone]
--- NOTE | 2022-02-22 13:25 | Anesthesiology Consultation ---
Date of Service February 22, 2022 Assessment & Plan (1) Encounter for pre-operative examination: - pt reports upcoming [facility] pre-op evaluation 02/23 and cardiology pre-op evaluation, 02/24/22 with [facility]. - COVID screening: Per assessment on 02/22/2022: Travel screen negative, no known COVID-19 positive contacts or current COVID-19 related symptoms in past 2 weeks. Pt vaccinated. Surgeon arranging preop COVID testing, scheduled 03/04/2022. Awaiting results. Chart Review Chart Review: Pending: Refer to Additional Notes / Consult section and Patient seen in Pre Admission Testing Teaching & Discussion Pre-Anesthesia Teaching/Discussion Notes: Instructed NPO after midnight before surgery, except medications with 15 cc of water. Medication instructions provided according to the PAT guidelines. History Surgery Operation Date: 03/08/22 10:25 Proposed Procedures p L2-3 Decompression and Fusion, L3-L4 Hardware Removal, Spinal Cord Monitoring - Dalton Merrill, Height/Weight Height: 5 ft 6.5 in Weight: 83.6 kg Allergies Allergy/AdvReac Type Severity Reaction Status Date / Time tetracycline Allergy Severe Anaphylaxis Verified 02/17/22 11:21 morphine Allergy Intermediate Rash, Verified 02/17/22 11:21 itching pregabalin [From Lyrica] Allergy Intermediate Feet Verified 02/17/22 11:21 swelling oxycodone Allergy Mild Rash, Verified 02/17/22 11:21 itching loratadine Allergy Unknown Unknown Verified 02/17/22 11:21 ropinirole Allergy Unknown Unknown Verified 02/17/22 11:21 Sulfa (Sulfonamide Allergy Unknown UNKNOWN Verified 02/17/22 11:21 Antibiotics) Medications Home Medications Medication Instructions Recorded Confirmed Last Taken ascorbic acid (vitamin C) 500 mg 500 mg PO QAM 05/08/19 02/17/22 11/10/21 tablet calcium carbonate 600 mg-vitamin 2 tab PO QAM 05/08/19 02/17/22 11/10/21 D3 10 mcg (400 unit) tablet estradiol 1 g vaginal 2XWK #42.5 grams 03/20/20 02/17/22 09/14/21 ferrous sulfate 325 mg (65 mg 325 mg PO QDL 09/15/20 02/17/22 11/08/21 iron) tablet (iron) magnesium 250 mg tablet 250 mg PO HS 09/15/20 02/17/22 11/10/21 omega 6-jjx-rhp-fish oil 100 1 cap PO QAM 09/15/20 02/17/22 11/08/21 mg-160 mg-1,000 mg capsule (Fish Oil) spironolactone 50 mg tablet 50 mg PO PM 09/15/20 02/17/22 11/10/21 fountain syringes applicator #1 ea 03/16/21 12/08/21 Unknown clonazepam 1 mg tablet 1.5 mg PO HS 03/27/21 02/17/22 11/10/21 cyanocobalamin (vitamin B-12) 100 mcg (0.1 mL) subcut MONTHLY #3 04/09/21 02/17/22 10/11/21 1,000 mcg/mL injection solution mL dextroamphetamine-amphetamine ER 30 mg PO QAM #90 caps 06/01/21 02/17/22 11/10/21 30 mg 24hr capsule,extend release (Adderall XR) meclizine 25 mg tablet 25 mg PO QAM PRN Vertigo 07/20/21 02/17/22 09/14/21 oxybutynin chloride 5 mg 5 mg PO QAM 07/20/21 02/17/22 11/10/21 tablet,extended release 24 hr (Ditropan XL) folic acid 1 mg tablet 1 mg PO QAM 09/11/21 02/17/22 11/10/21 lactobacillus combination no.4 3 3,000 mmu cells PO QAM 09/11/21 02/17/22 11/10/21 billion cell capsule (Probiotic) mirabegron 50 mg tablet,extended 50 mg PO HS 09/15/21 02/17/22 11/10/21 release 24 hr (Myrbetriq) insulin syringe-needle U-100 1 mL #10 ea 09/18/21 12/08/21 Unknown 25 x 1" (BD Insulin Syringe) levothyroxine 112 mcg tablet See Rx Instructions .Route 10/16/21 02/17/22 11/11/21 08:00 .COMPLEX #90 tabs ergocalciferol (vitamin D2) 1,250 50,000 unit PO Q14D #6 caps 10/28/21 02/17/22 11/10/21 mcg (50,000 unit) capsule ondansetron HCl 4 mg tablet See Rx Instructions .Route 01/11/22 02/17/22 Unknown .COMPLEX #120 tabs pantoprazole 40 mg tablet,delayed See Rx Instructions .Route 01/11/22 02/17/22 Unknown release .COMPLEX #180 tabs venlafaxine 150 mg tablet,extended 150 mg PO BID #60 tabs 02/09/22 02/17/22 Unknown release 24 hr cephalexin 150 mg PO TID 02/22/22 02/22/22 Unknown rivaroxaban 20 mg tablet (Xarelto) 20 mg PO PM #90 tabs 02/22/22 Unknown Past Medical History Medical History (Updated 02/22/22 @ 14:03 by Lamar Prater PA-C) Acid reflux controlled, stable per pt Anemia follows with [facility] Anticoagulant long-term use XARELTO Anxiety Atrial septal aneurysm 09/16/21 echo: atrial septal aneurysm incidentally noted, with small hemodynamically insignificant shunt. Consider daily aspirin for stroke prophylaxis. Closure not currently indicated. Injection of contrast documented no interatrial shunt. Chronic cystitis Chronic venous insufficiency Degenerative disc disease Depression Hiatal hernia History of blood transfusion 06/2021 and 08/2021 History of venous thromboembolism DVT LLE > PE post-op (2015), on warfarin Hyperlipidemia per records, pt denies Hypothyroidism MS (multiple sclerosis) reason for Adderral per pt, follows with [facility] neurology (Dr. Tkii oLpez) > stable Nausea Osteoporosis Pulmonary embolism provoked submassive PE 02/2016 on anticoagulation, post-op bilat hip fx ORIF; fat attenuation noted in RUL 09/15/21 on chest CTA felt to likely be old fat embolism RBBB Restless leg syndrome Spinal stenosis Transient ischemic attack (TIA) 2002, follows with [facility] neurology (Dr. Tiki Lopez) Urinary incontinence, urge Vertigo Vision loss, left eye r/t "neuropathy" per pt Patient denies h/o seizures, heart attack, heart failure, DM, HTN or blood transfusions. Exercise / Class Metabolic Activity III < 4 Walking/Shop/Light housework (ambulates with cane, denies CP or SOB with usual activities) Past Family History Family History Sister Breast cancer Aunt Breast cancer maternal Father Prostate cancer Brother Prostate cancer Family/Other Bladder cancer Heart disease Nephrolithiasis Hypertension Other Slow to wake up after anesthesia Denies family history of Ovarian cancer Myocardial infarction Colorectal cancer Past Surgical History Surgical History (Updated 02/22/22 @ 13:57 by Lamar Prater PA-C) H/O gastric bypass H/O ovarian cystectomy H/O rectocele repair History of arthroplasty of left knee History of bladder surgery + vaginal mesh History of cataract surgery Right History of colonoscopy History of esophagogastroduodenoscopy (EGD) History of knee replacement Right x2 Left TKA (10/01/20): LMA 5.0 + PNB at [facility] (done under General anesthesia > hx MS) History of left knee replacement 10/01/20: LMA#5 + PNB. History of lumbar fusion x2 History of open reduction and internal fixation (ORIF) procedure (~04/2021) BL Femur Hx of fusion of cervical spine > 10-15 yrs ago, Nn ROM limitations per pt Hx of LASIK Hx of melanoma excision L shoulder Hx of prior ablation treatment B/L LE S/P carpal tunnel release R/L S/P debridement x 2 (post op infection ORIF femur 04/2021) - reason for abx; s/p trauma fall from ladder S/P epidural steroid injection S/P hysterectomy with oophorectomy S/P tonsillectomy [place] teeth extracted Past Anesthesia History Other (slow to wake up, denies needing re-intubated and h/o hypotension post-op per pt; father slow to wake) History of PONV No Hx of PONV and Hx of Motion Sickness Social History Smoking Status: Never smoker Do You Dip or Chew Tobacco: No Hx Alcohol Use: Yes Alcohol type: beer alcohol intake frequency: holidays/special occasions only Hx Substance Use: No substance use type: does not use Review of Systems Patient denies chest pain, shortness of breath, dyspnea on exertion, snoring, witnessed apneas, fever, chills, cough, wheezing, or palpitations. Physical Exam Vital Signs Vitals BP 107/72 P 76 TEMP 98.8 SP02 98% on RA RESP 18 Physical Full cervical extension range of motion without pain TMD 3.5 finger breadths Mallampati Score 2 Dentition: intact, caps/crowns, denies Lungs: normal respiratory effort. Clear throughout to auscultation, no adventitious breath sounds Cardiac: regular rate and rhythm, no murmurs noted Carotid arteries: negative bruit bilat Lab Results Anesthesia Preop Results Results Anesthesia Widget: WBC 4.44 K/ul (4.8-10.8) L 02/22/22 Hgb 11.9 g/dl (12.0-16.0) L 02/22/22 Hct 37.6 % (34.1-44.9) 02/22/22 Plt 174 K/uL (130-400) 02/22/22 Na 140 mmol/L (136-145) 02/22/22 K 4.3 mmol/L (3.5-5.1) 02/22/22 Cl 108 mmol/L (98-107) H 02/22/22 CO2 27 mmol/L (21-32) 02/22/22 BUN 22 mg/dl (6-23) 02/22/22 Creat 0.96 mg/dl (0.6-1.2) 02/22/22 Glucose Level 98 mg/dl (70-99(Fasting)) 02/22/22 PT 10.7 Seconds (9.0-12.0) 02/22/22 PTT 25.6 Seconds (21.0-31.0) 02/22/22 INR 1.0 (0.9-1.1) 02/22/22 Urine Color Yellow 02/22/22 Urine Appearance Clear (Clear) 02/22/22 Urine pH 6.5 (4.5-7.5) 02/22/22 Urine Specific [place] 1.019 (1.000-1.030) 02/22/22 Urine Protein Negative (Negative) 02/22/22 Urine Glucose (UA) Negative (Negative) 02/22/22 Urine Ketones Trace (Negative) H 02/22/22 Urine Blood Negative (Negative) 02/22/22 Urine Nitrite Negative (Negative) 02/22/22 Urine Bilirubin Negative (Negative) 02/22/22 Urine Urobilinogen Negative (Negative) 02/22/22 Urine Leukocyte Esterase Negative (Negative) 02/22/22 Blood Type AB Positive 02/22/22 Antibody Screen NEGATIVE 02/22/22 Testing Electrocardiogram Date: 09/15/21 NSR, rate 74 bpm RBBB Chest X-Ray Date: 09/15/21 *1view* The cardiomediastinal and hilar silhouettes are within normal limits. Descending thoracic aortic tortuosity. No pneumothorax, pleural effusion, airspace consolidation or overt pulmonary edema. Subacute to chronic appearing fractures of the anterolateral right fourth through sixth ribs appear new from prior. Degenerative changes of the shoulders and spine. Cervical spinal fusion hardware. IMPRESSION: No acute process. Echocardiogram Date: 09/16/21 EF 60-65% Moderate cLVH No regional wall motion abnormalities Atrial septal aneurysm incidentally noted, with small hemodynamically insignificant shunt. Consider daily aspirin for stroke prophylaxis. Closure not currently indicated. Injection of contrast documented no interatrial shunt. Mild pulmonic regurgitation Other Testing Chest CTA 09/15/21 1. Small fat attenuation segmental pulmonary embolus within the right upper lobe. This suggests fat embolism although the etiology and clinical significance of this finding is uncertain. Findings discussed with Dr. Correa at time of dictation. 2. Dilatation of the main pulmonary artery suggestive of pulmonary arterial hypertension. 3. Cardiomegaly.
--- NOTE | 2022-02-22 13:52 | PAT Medication Instructions ---
Medication Instructions Date of Service February 22, 2022 Home Medications Medication Instructions Recorded estradiol 1 g vaginal 2XWK #42.5 grams 03/20/20 fountain syringes applicator #1 ea 03/16/21 cyanocobalamin (vitamin B-12) 100 mcg (0.1 mL) subcut MONTHLY #3 04/09/21 1,000 mcg/mL injection solution mL dextroamphetamine-amphetamine ER 30 mg PO QAM #90 caps 06/01/21 30 mg 24hr capsule,extend release (Adderall XR) insulin syringe-needle U-100 1 mL #10 ea 09/18/21 25 x 1" (BD Insulin Syringe) levothyroxine 112 mcg tablet See Rx Instructions .Route 10/16/21 .COMPLEX #90 tabs ergocalciferol (vitamin D2) 1,250 50,000 unit PO Q14D #6 caps 10/28/21 mcg (50,000 unit) capsule ondansetron HCl 4 mg tablet See Rx Instructions .Route 01/11/22 .COMPLEX #120 tabs pantoprazole 40 mg tablet,delayed See Rx Instructions .Route 01/11/22 release .COMPLEX #180 tabs venlafaxine 150 mg tablet,extended 150 mg PO BID #60 tabs 02/09/22 release 24 hr rivaroxaban 20 mg tablet (Xarelto) 20 mg PO PM #90 tabs 02/22/22 ascorbic acid (vitamin C) 500 mg tablet 500 mg PO QAM calcium carbonate 600 mg-vitamin D3 10 mcg (400 unit) tablet 2 tab PO QAM estradiol 1 g vaginal 2XWK ferrous sulfate 325 mg (65 mg iron) tablet (iron) 325 mg PO QDL magnesium 250 mg tablet 250 mg PO HS omega 0-red-gcl-fish oil 100 mg-160 mg-1,000 mg capsule (Fish Oil) 1 cap PO QAM spironolactone 50 mg tablet 50 mg PO PM fountain syringes applicator #1 clonazepam 1 mg tablet 1.5 mg PO HS cyanocobalamin (vitamin B-12) 1,000 mcg/mL injection solution 100 mcg (0.1 mL) subcut MONTHLY dextroamphetamine-amphetamine ER 30 mg 24hr capsule,extend release (Adderall XR) 30 mg PO QAM meclizine 25 mg tablet 25 mg PO QAM PRN Vertigo oxybutynin chloride 5 mg tablet,extended release 24 hr (Ditropan XL) 5 mg PO QAM folic acid 1 mg tablet 1 mg PO QAM lactobacillus combination no.4 3 billion cell capsule (Probiotic) 3,000 mmu cells PO QAM mirabegron 50 mg tablet,extended release 24 hr (Myrbetriq) 50 mg PO HS insulin syringe-needle U-100 1 mL 25 x 1" (BD Insulin Syringe) levothyroxine 112 mcg tablet See Rx Instructions .Route .COMPLEX ergocalciferol (vitamin D2) 1,250 mcg (50,000 unit) capsule 50,000 unit PO Q14D ondansetron HCl 4 mg tablet See Rx Instructions .Route .COMPLEX pantoprazole 40 mg tablet,delayed release See Rx Instructions .Route .COMPLEX venlafaxine 150 mg tablet,extended release 24 hr 150 mg PO BID rivaroxaban 20 mg tablet (Xarelto) 20 mg PO PM Continue as directed cyanocobalamin (vitamin B-12) 1,000 mcg/mL injection solution 100 mcg (0.1 mL) subcut MONTHLY (not day of surgery) levothyroxine 112 mcg tablet See Rx Instructions .Route .COMPLEX ondansetron HCl 4 mg tablet See Rx Instructions .Route .COMPLEX pantoprazole 40 mg tablet,delayed release See Rx Instructions .Route .COMPLEX ASK your surgeon for instructions estradiol 1 g vaginal 2XWK ASK your prescriber and surgeon rivaroxaban 20 mg tablet (Xarelto) 20 mg PO PM STOP taking 2 weeks before surgery omega 7-aqn-zrd-fish oil 100 mg-160 mg-1,000 mg capsule (Fish Oil) 1 cap PO QAM DO NOT take the morning of surgery ascorbic acid (vitamin C) 500 mg tablet 500 mg PO QAM calcium carbonate 600 mg-vitamin D3 10 mcg (400 unit) tablet 2 tab PO QAM ferrous sulfate 325 mg (65 mg iron) tablet (iron) 325 mg PO QDL dextroamphetamine-amphetamine ER 30 mg 24hr capsule,extend release (Adderall XR) 30 mg PO QAM oxybutynin chloride 5 mg tablet,extended release 24 hr (Ditropan XL) 5 mg PO QAM folic acid 1 mg tablet 1 mg PO QAM lactobacillus combination no.4 3 billion cell capsule (Probiotic) 3,000 mmu cells PO QAM ergocalciferol (vitamin D2) 1,250 mcg (50,000 unit) capsule 50,000 unit PO Q14D Take morning of surgery With a small sip of water, OTHERWISE NOTHING TO EAT OR DRINK AFTER MIDNIGHT: meclizine 25 mg tablet 25 mg PO QAM PRN Vertigo venlafaxine 150 mg tablet,extended release 24 hr 150 mg PO BID Take evening before surgery magnesium 250 mg tablet 250 mg PO HS spironolactone 50 mg tablet 50 mg PO PM clonazepam 1 mg tablet 1.5 mg PO HS mirabegron 50 mg tablet,extended release 24 hr (Myrbetriq) 50 mg PO HS venlafaxine 150 mg tablet,extended release 24 hr 150 mg PO BID Other Notes If you have any questions please call us at [phone] or [phone] or [phone] or [phone]
[~2022-03-08 08:23] MED LIST changes: +ACETAMINOPHEN 500 MG TAB PO SCH; -AMPH30CA3 PO; -ASCA500 PO; -B-COTAB18 PO; -CALC-354 PO; -CHOL2000 PO; -CLON1TAB10 PO; -CRAN400C PO; -CYNI1000 IM; +CeleBREX 200 MG CAP PO SCH; -ERGO500011 PO; -ESCI1TAB10 PO; -ESTCR PV; -GLAT1INJ INJ; -LEVO125T5 PO; +LR 15ML/HR IV SCH; -MAGN400T6 PO; -MIRA1TAB3 PO; -MULT-506 PO; -NYST1POW7 TOP; -PREG200C PO; -RIVA1TAB4 PO; -TURM1CAP4 PO; +ceFAZolin 2000MG 2,000 MG/15 ML SYR IV SCH
[2022-03-08] MEDS ORDERED: NEOSTIGMINE METHYLSULFATE 1 MG/ML 10ML VIAL ONE (08:25)
[2022-03-08] MEDS ORDERED: fentaNYL citrate 100 MCG/2 ML VIAL ONE (08:25)
[2022-03-08] MEDS ORDERED: MIDAZOLAM HCL 1 MG/ML 2ML VIAL ONE (08:25)
[2022-03-08] MEDS ORDERED: GLYCOPYRROLATE 0.2 MG/ML VIAL ONE (08:25)
[2022-03-08] MEDS ORDERED: ONDANSETRON INJ 2 MG/ML 2 ML VIAL ONE (08:25)
[2022-03-08] MEDS ORDERED: PROPOFOL IV EMULSION 10 MG/ML 20 ML VIAL IV ONE (08:25)
[2022-03-08] MEDS ORDERED: DEXAMETHASONE SOD INJ 4 MG/ML VIAL ONE (08:25)
--- NOTE | 2022-03-08 09:58 | History & Physical Bridge Note ---
Date of Service March 08, 2022 History & Physical Bridge Note I have examined the patient, reviewed the History & Physical and in the interval since the performance of the History & Physical I have noted the following changes of clinical significance: no changes noted
--- NOTE | 2022-03-08 09:59 | History & Physical Report ---
Date of Service March 08, 2022 Assessment & Plan (1) Lumbar stenosis with neurogenic claudication: Plan: L2-L3 decompression and fusion, L3-L4 hardware removal History of Present Illness Chief Complaint: Back and leg pain Primary Care Provider: Lalo Tamayo MD This is a 72-year-old female known to me the presents with chronic persistent back and leg pain. After failing since course of nonoperative care she is here for surgical invention. Allergies Allergy/AdvReac Type Severity Reaction Status Date / Time tetracycline Allergy Severe Anaphylaxis Verified 03/08/22 08:50 morphine Allergy Intermediate Rash, Verified 03/08/22 08:50 itching pregabalin [From Lyrica] Allergy Intermediate Feet Verified 03/08/22 08:50 swelling oxycodone Allergy Mild Rash, Verified 03/08/22 08:50 itching loratadine Allergy Unknown Unknown Verified 03/08/22 08:50 ropinirole Allergy Unknown Unknown Verified 03/08/22 08:50 Sulfa (Sulfonamide Allergy Unknown UNKNOWN Verified 03/08/22 08:50 Antibiotics) Home Medications Medication Instructions Recorded Confirmed Type ascorbic acid (vitamin C) 500 mg 500 mg PO QAM 05/08/19 03/08/22 History tablet calcium carbonate 600 mg-vitamin 2 tab PO QAM 05/08/19 03/08/22 History D3 10 mcg (400 unit) tablet estradiol 0.01% (0.1 mg/gram) 1 g vaginal 2XWK #42.5 grams 03/20/20 03/08/22 Rx vaginal cream ferrous sulfate 325 mg (65 mg 325 mg PO QDL 09/15/20 03/08/22 History iron) tablet (iron) magnesium 250 mg tablet 250 mg PO HS 09/15/20 03/08/22 History omega 0-ysb-dwe-fish oil 100 1 cap PO QAM 09/15/20 03/08/22 History mg-160 mg-1,000 mg capsule (Fish Oil) spironolactone 50 mg tablet 50 mg PO PM 09/15/20 03/08/22 History fountain syringes applicator #1 ea 03/16/21 02/24/22 Rx clonazepam 1 mg tablet 1.5 mg PO HS 03/27/21 03/08/22 History cyanocobalamin (vitamin B-12) 100 mcg (0.1 mL) subcut MONTHLY #3 04/09/21 03/08/22 Rx 1,000 mcg/mL injection solution mL dextroamphetamine-amphetamine ER 30 mg PO QAM #90 caps 06/01/21 03/08/22 Rx 30 mg 24hr capsule,extend release (Adderall XR) meclizine 25 mg tablet 25 mg PO QAM PRN Vertigo 07/20/21 03/08/22 History oxybutynin chloride 5 mg 5 mg PO QAM 07/20/21 03/08/22 History tablet,extended release 24 hr (Ditropan XL) folic acid 1 mg tablet 1 mg PO QAM 09/11/21 03/08/22 History lactobacillus combination no.4 3 3,000 mmu cells PO QAM 09/11/21 03/08/22 History billion cell capsule (Probiotic) mirabegron 50 mg tablet,extended 50 mg PO HS 09/15/21 03/08/22 History release 24 hr (Myrbetriq) insulin syringe-needle U-100 1 mL #10 ea 09/18/21 02/24/22 Rx 25 x 1" (BD Insulin Syringe) levothyroxine 112 mcg tablet See Rx Instructions .Route 10/16/21 03/08/22 Rx .COMPLEX #90 tabs ergocalciferol (vitamin D2) 1,250 50,000 unit PO Q14D #6 caps 10/28/21 03/08/22 Rx mcg (50,000 unit) capsule ondansetron HCl 4 mg tablet See Rx Instructions .Route 01/11/22 03/08/22 Rx .COMPLEX #120 tabs pantoprazole 40 mg tablet,delayed See Rx Instructions .Route 01/11/22 03/08/22 Rx release .COMPLEX #180 tabs venlafaxine 150 mg tablet,extended 150 mg PO BID #60 tabs 02/09/22 03/08/22 Rx release 24 hr rivaroxaban 20 mg tablet (Xarelto) 20 mg PO PM #90 tabs 02/22/22 03/08/22 Rx cephalexin 500 mg capsule 500 mg PO TID #270 caps 03/02/22 03/08/22 Rx Past Med/Surg History Medical History Acid reflux Anemia Anticoagulant long-term use Anxiety Atrial septal aneurysm Chronic cystitis Chronic venous insufficiency Degenerative disc disease Depression Hiatal hernia History of blood transfusion History of venous thromboembolism Hyperlipidemia Hypothyroidism MS (multiple sclerosis) Nausea Osteoporosis Pulmonary embolism RBBB Restless leg syndrome Spinal stenosis Transient ischemic attack (TIA) Urinary incontinence, urge Vertigo Vision loss, left eye Surgical History H/O gastric bypass H/O ovarian cystectomy H/O rectocele repair History of arthroplasty of left knee History of bladder surgery History of cataract surgery History of colonoscopy History of esophagogastroduodenoscopy (EGD) History of knee replacement History of left knee replacement History of lumbar fusion History of open reduction and internal fixation (ORIF) procedure (~04/2021) Hx of fusion of cervical spine Hx of LASIK Hx of melanoma excision Hx of prior ablation treatment S/P carpal tunnel release S/P debridement S/P epidural steroid injection S/P hysterectomy with oophorectomy S/P tonsillectomy [place] teeth extracted Family History Sister Breast cancer Aunt Breast cancer Father Prostate cancer Brother Prostate cancer Family/Other Bladder cancer Heart disease Nephrolithiasis Hypertension Other Slow to wake up after anesthesia Denies family history of Ovarian cancer Myocardial infarction Colorectal cancer Social History Smoking Status: Never smoker Second Hand Exposure: No; Do You Dip or Chew Tobacco: No; Tobacco Cessation Education Requested by Patient: No Hx Alcohol Use: Yes Alcohol type: beer Hx Substance Use: No Preferred Language: Jamaican Communication Ability: Effective Visual Impairment: No Limitations Hearing Ability: Use of Hearing Aid Asic Design Engineer Required: No Beliefs That Will Affect Care: None marital status: Single Current Living Situation: Family Current Living Situation Comment: daughter and son in law current occupational status: retired Other Information That Helps Us Care for You: No Feels Safe at Home: Yes Childhood Exposure to Second-Hand Smoke: Yes Dental Care, Regularly: No Physical Activity Frequency Comment: restricted with activity due to ms Seatbelt Use: always Sunscreen Use: Yes Assistive Devices: Cane, Glasses and Walker Physical Exam Physical Exam: Patient is alert and oriented Heart regular in rhythm Lungs clear Results & Data Results & Data ([facility]) Vital Signs (Past 12 Hours) Vital Signs Temp Pulse Resp BP Pulse Ox O2 Del Method 03/08/22 08:46 36.5 C 78 18 120/73 100 Room Air
[2022-03-08] MEDS ORDERED: ceFAZolin 330 MG/ML 1 GM VIAL ONE (10:21)
[2022-03-08] MEDS ORDERED: BUPIVACAINE/EPINEPHRINE 0.25% 1:200,000 30 ML VIAL ONE (10:21)
[2022-03-08] MEDS ORDERED: HYDROmorphone INJ 2 MG/ML SYR/VIAL ONE (10:52)
[2022-03-08] MEDS ORDERED: ONDANSETRON INJ 2 MG/ML 2 ML VIAL IV PRN ×2 (11:17→14:02)
[2022-03-08] MEDS ORDERED: ePHEDrine sulfate 50 MG/ML AMP IV PRN (11:17)
[2022-03-08] MEDS ORDERED: ATROPINE SULFATE 0.1 MG/ML 10ML SYR IV PRN (11:17)
[2022-03-08] MEDS ORDERED: PROMETHAZINE HCL 6.25 MG in SODIUM CHLORIDE 0.9% 50 ML IV PRN (11:17)
[2022-03-08] MEDS ORDERED: FLOSEAL HEMOSTATIC MATRIX 10ML TOP ONE (11:38)
--- NOTE | 2022-03-08 12:34 | Operative Report ---
Post Operative Report Pre & Post Diagnosis Operation Date: 03/08/22 10:25 Pre-Op Diagnosis: Lumbar stenosis with neurogenic claudication. Post-Op Diagnosis: Lumbar stenosis with neurogenic claudication. I identified the patient and participated in the time-out.: Yes Procedure Operation Date: 03/08/22 10:25 Actual Procedures Posterior instrumentation L3-L4. #2 exploration of fusion L3-L4 #3 lumbar decompression bilateral facetectomies and foraminotomies L1-L2 L2-L3. #4 posterior spinal fusion L2-L3. 5. Instrumentation L2-L3 L3-L4 per #6 interbody fusion L2-L3. #7 placement of Spira 9 x 26 mm cage at L2-L3. #8 placement of a harvested morselized autograft in the posterior gutters. Midline placement I factor combined with V toss in the interbody space and posterior lateral gutters. Surgeon Dalton Merrill, Freight Unloader Matt France Estimated Blood Loss 200 Findings Consistent with Post-Op Diagnosis Specimens None Indications This is a 71-year-old female who presents above-mentioned diagnosis after failing course of nonoperative care she is here for surgical invention. Description of Procedure Patient was met with identified informed consent obtained. Patient was then taken to the operative suite underwent intubation placed in a prone position the Larry table on top of the Masoud frame. All bony prominences well-padded eyes inspected to ensure no external pressure placed upon them. This point the lumbar spine was prepped and draped in normal sterile fashion. Sharp dissection with the assistance of Bovie cautery was performed down to and exposing the lamina and transverse processes of L2 and instrumentation at L3-L4 bilaterally. Then proceeded with the hardware bilaterally explore the fusion mass noting it to be mature and intact. Then performed a complete laminectomy of L2 partial L1 including bilateral medial facetectomies and foraminotomies addressing severe spinal stenosis. Pedicle screws were then placed in L2-L3 and L4 bilaterally with assistance of fluoroscopy and the properly sized keagan placed. By way the transforaminal approach and left complete discectomy of L2-L3 was performed endplates curetted to subcortical any bone and a 9 x 26 mm spiral cage filled I factor tapped the position. The rods were then locked in final position bilaterally. The transverse processes of L2 and L3 burred to subcortically bone. I factor combined with V toss and locally harvested morselized autograft was placed in the posterior gutters. 15 round REYNALDO drain inserted. The incision was then closed with 1 Vicryl the fascia 2-0 Vicryl subcutaneously and 4 Monocryl for final skin closure. Steri-Strip sterile dressings placed. Patient waken taken PACU stable condition. Please note spinal cord monitoring was utilized at the procedure no changes noted. Lastly Matt France was present out the entire surgery involved the patient positioning complex portions of the surgery and fascial closure. I attest to the content of the Intraoperative Record and any orders documented therein. Any exceptions are noted below.
[2022-03-08] MEDS ORDERED: KETOROLAC 30 MG/ML VIAL ONE (12:41)
[2022-03-08] MEDS ORDERED: ROCURONIUM BROMIDE 10 MG/ML 5 ML VIAL IV ONE (12:41)
--- NOTE | 2022-03-08 12:56 | Fluoroscopy Report ---
INTRAOPERATIVE RADIOGRAPHS CLINICAL HISTORY: Lumbar spinal fusion. Fluoroscopy time: 22 seconds. FINDINGS: 2 spot fluoroscopic views of the lumbar spine are presented. There is evidence of multileve l discectomy and lumbar spinal fusion. This is reportedly at the L2-L4 levels. Interpedicular screws are in place. The orthopedic hardware appears intact. IMPRESSION: Intraoperative images from lumbar spinal fusion surgery as above. Electronically signed by: Gerard Mccarty M.D. 03/08/2022 12:54 PM
[2022-03-08] MEDS: fentaNYL citrate 100 MCG/2 ML VIAL IV PRN ×2 (13:15→13:20)
[2022-03-08] MEDS ORDERED: ACETAMINOPHEN 1,000 MG/100 ML VIAL IV PRN (14:02)
[2022-03-08] MEDS ORDERED: HYDROmorphone INJ 1 MG/ML SYRINGE IV PRN (14:02)
[2022-03-08] MEDS ORDERED: SOD PHOSPHATE/SOD BIPHOSPHATE ENEMA 132 ML BTL PR PRN (14:02)
[2022-03-08] MEDS ORDERED: ALUMINUM/MAGNESIUM SUSP 30 ML UDC PO PRN (14:02)
[2022-03-08] MEDS ORDERED: FAMOTIDINE 20 MG TAB PO PRN (14:02)
[2022-03-08] MEDS ORDERED: MAGNESIUM HYDROXIDE SUSP 30 ML UDC PO PRN (14:02)
[2022-03-08] MEDS ORDERED: PHARMACY GLYCEMIC MGMT CONSULT PRN (14:02)
[2022-03-08] MEDS ORDERED: ONDANSETRON 4 MG OD TAB PO PRN (14:02)
[2022-03-08] MEDS ORDERED: diphenhydrAMINE Capsule 25 MG CAP PO PRN (14:02)
[2022-03-08] MEDS ORDERED: PROMETHAZINE HCL 12.5 MG in SODIUM CHLORIDE 0.9% 50 ML IV PRN (14:02)
[2022-03-08] MEDS ORDERED: hydrOXYzine HCl 25 MG TAB PO PRN (14:02)
[2022-03-08] MEDS ORDERED: bisacodyL 10 MG SUPP PR PRN (14:02)
[2022-03-08] MEDS ORDERED: LORazepam 0.5 MG in SYRINGE 0.25 ML IV PRN (14:02)
[2022-03-08] MEDS ORDERED: METOCLOPRAMIDE HCL INJ 5 MG/ML 2 ML VIAL IV PRN (14:02)
[2022-03-08] MEDS ORDERED: HYDROCODONE/ACETAMOPHEN 5/325MG TAB PO PRN (14:02)
[2022-03-08] MEDS ORDERED: MECLIZINE HCL 25 MG TAB PO PRN (14:02)
[2022-03-08] MEDS ORDERED: HYDROmorphone INJ 0.5 MG/0.5 ML SYR IV PRN (14:02)
[2022-03-08] MEDS ORDERED: NALOXONE HCL 0.4 MG/1 ML VIAL/CARP IV PRN (14:02)
[2022-03-08] MEDS: SODIUM CHLORIDE 0.9% 1000ML 1,000 ML IV SCH (14:42)
--- NOTE | 2022-03-08 14:44 | Anesthesiology Progress Note ---
Date of Service March 08, 2022 Anesthesia Post Procedure Vital Signs Vital Signs: Temp Pulse Pulse Resp BP Pulse Ox O2 Del Method 03/08/22 14:22 64 14 96/61 L 96 Nasal Cannula 03/08/22 13:50 Nasal Cannula 03/08/22 13:50 36.5 C 69 16 100/61 97 Nasal Cannula 03/08/22 13:30 36.9 C 71 15 108/60 96 Nasal Cannula 03/08/22 13:20 71 12 107/66 93 Room Air 03/08/22 13:10 76 12 123/71 100 Oxymask 03/08/22 13:00 80 12 137/67 100 Oxymask 03/08/22 12:53 36.6 C 94 H 15 141/89 H 100 Oxymask 03/08/22 08:46 36.5 C 78 18 120/73 100 Room Air O2 Flow Rate 03/08/22 14:22 2 03/08/22 13:50 2 03/08/22 13:50 2 03/08/22 13:30 2 03/08/22 13:20 03/08/22 13:10 6 03/08/22 13:00 6 03/08/22 12:53 6 03/08/22 08:46 Pain Intensity Back: Pain Intensity: 5 Transfer of Care Handoff Completed per policy Notes Mental Status: alert / awake / arousable Patient Amnestic to Procedure: Yes Nausea / Vomiting: adequately controlled Pain: adequately controlled Airway Patency, RR, SpO2: stable & adequate BP & HR: stable & adequate Hydration State: stable & adequate Anesthetic Complications: no major complications apparent
--- NOTE | 2022-03-08 15:00 | Hospitalist Consultation ---
Date of Consultation March 08, 2022 Assessment & Plan (1) Lumbar stenosis with neurogenic claudication: S/p posterior decompression and spinal fusion of L2-L3 with Dr. Merrill. EBL was 200 mL. - Post-operative care per primary team - At risk for acute blood loss anemia; will monitor H&H and administer PRBCs or IV Venofer as needed. - Resume home anticoagulation when surgically appropriate. (2) Anticoagulant long-term use: Due to prior DVT/PE in 2016. - Resume Xarelto when appropriate from surgical standpoint. (3) MS (multiple sclerosis): Hx of. Follows with [facility] neurology per Dr. Tamayo's notes. 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 Was on cefazolin and rifampin x 6 weeks, now on chronic cephalexin. - Resume after queta-operative abx given (5) Chronic cystitis: - Continue home Myrbetriq and oxybutynin (6) Hypothyroidism: TSH was 1.2 in 11/2021. No signs/symptoms of hypo-/hyperthyroidism. - Continue home Synthroid 112 mcg (7) DVT prophylaxis: High-risk patient. Resume home Xarelto when able. Will follow along tomorrow, then likely sign off if medical issues are stable. History of Present Illness Attending Physician: Dalton Merrill, History of Present Illness 71yo F w/ hx of large DVT/PE on indefinite anticoagulation who presents as a routine medical consult after posterior decompression and spinal fusion of L2- L3. EBL was 200 mL, and I do not see any complications in the operative note. The patient was having ongoing back pain despite conservative medical therapy and surgery was approved. Seen after surgery today, and the patient reports minimal symptoms. She is somewhat tired from the anesthesia, but not having back pain during my interview. Allergies Allergy/AdvReac Type Severity Reaction Status Date / Time tetracycline Allergy Severe Anaphylaxis Verified 03/08/22 08:50 morphine Allergy Intermediate Rash, Verified 03/08/22 08:50 itching pregabalin [From Lyrica] Allergy Intermediate Feet Verified 03/08/22 08:50 swelling oxycodone Allergy Mild Rash, Verified 03/08/22 08:50 itching loratadine Allergy Unknown Unknown Verified 03/08/22 08:50 ropinirole Allergy Unknown Unknown Verified 03/08/22 08:50 Sulfa (Sulfonamide Allergy Unknown UNKNOWN Verified 03/08/22 08:50 Antibiotics) Home Medications Medication Instructions Recorded Confirmed Type ascorbic acid (vitamin C) 500 mg 500 mg PO QAM 05/08/19 03/08/22 History tablet calcium carbonate 600 mg-vitamin 2 tab PO QAM 05/08/19 03/08/22 History D3 10 mcg (400 unit) tablet estradiol 0.01% (0.1 mg/gram) 1 g vaginal 2XWK #42.5 grams 03/20/20 03/08/22 Rx vaginal cream ferrous sulfate 325 mg (65 mg 325 mg PO QDL 09/15/20 03/08/22 History iron) tablet (iron) magnesium 250 mg tablet 250 mg PO HS 09/15/20 03/08/22 History omega 9-fkt-pgi-fish oil 100 1 cap PO QAM 09/15/20 03/08/22 History mg-160 mg-1,000 mg capsule (Fish Oil) spironolactone 50 mg tablet 50 mg PO PM 09/15/20 03/08/22 History fountain syringes applicator #1 ea 03/16/21 02/24/22 Rx clonazepam 1 mg tablet 1.5 mg PO HS 03/27/21 03/08/22 History cyanocobalamin (vitamin B-12) 100 mcg (0.1 mL) subcut MONTHLY #3 04/09/21 03/08/22 Rx 1,000 mcg/mL injection solution mL dextroamphetamine-amphetamine ER 30 mg PO QAM #90 caps 06/01/21 03/08/22 Rx 30 mg 24hr capsule,extend release (Adderall XR) meclizine 25 mg tablet 25 mg PO QAM PRN Vertigo 07/20/21 03/08/22 History oxybutynin chloride 5 mg 5 mg PO QAM 07/20/21 03/08/22 History tablet,extended release 24 hr (Ditropan XL) folic acid 1 mg tablet 1 mg PO QAM 09/11/21 03/08/22 History lactobacillus combination no.4 3 3,000 mmu cells PO QAM 09/11/21 03/08/22 History billion cell capsule (Probiotic) mirabegron 50 mg tablet,extended 50 mg PO HS 09/15/21 03/08/22 History release 24 hr (Myrbetriq) insulin syringe-needle U-100 1 mL #10 ea 09/18/21 02/24/22 Rx 25 x 1" (BD Insulin Syringe) levothyroxine 112 mcg tablet See Rx Instructions .Route 10/16/21 03/08/22 Rx .COMPLEX #90 tabs ergocalciferol (vitamin D2) 1,250 50,000 unit PO Q14D #6 caps 10/28/21 03/08/22 Rx mcg (50,000 unit) capsule ondansetron HCl 4 mg tablet See Rx Instructions .Route 01/11/22 03/08/22 Rx .COMPLEX #120 tabs pantoprazole 40 mg tablet,delayed See Rx Instructions .Route 01/11/22 03/08/22 Rx release .COMPLEX #180 tabs venlafaxine 150 mg tablet,extended 150 mg PO BID #60 tabs 02/09/22 03/08/22 Rx release 24 hr rivaroxaban 20 mg tablet (Xarelto) 20 mg PO PM #90 tabs 02/22/22 03/08/22 Rx cephalexin 500 mg capsule 500 mg PO TID #270 caps 03/02/22 03/08/22 Rx Patient History Medical History (Updated 03/08/22 @ 14:58 by Bucky Sherman MD) Acid reflux controlled, stable per pt Anemia follows with [facility] Anticoagulant long-term use XARELTO Anxiety Atrial septal aneurysm 09/16/21 echo: atrial septal aneurysm incidentally noted, with small hemodynamically insignificant shunt. Consider daily aspirin for stroke prophylaxis. Closure not currently indicated. Injection of contrast documented no interatrial shunt. 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 [facility]) > stable Nausea Osteoporosis Pulmonary embolism provoked submassive PE 02/2016 on anticoagulation, post-op bilat hip fx ORIF; fat attenuation noted in RUL 09/15/21 on chest CTA felt to likely be old fat embolism RBBB Restless leg syndrome Spinal stenosis Transient ischemic attack (TIA) 2002, follows with [facility] neurology (Dr. Tiki Lopez) Urinary incontinence, urge Vertigo Vision loss, left eye r/t "neuropathy" per pt Surgical History H/O gastric bypass H/O ovarian cystectomy H/O rectocele repair History of arthroplasty of left knee History of bladder surgery + vaginal mesh History of cataract surgery Right History of colonoscopy History of esophagogastroduodenoscopy (EGD) History of knee replacement Right x2 Left TKA (10/01/20): LMA 5.0 + PNB at [facility] (done under General anesthesia > hx MS) History of left knee replacement 10/01/20: LMA#5 + PNB. History of lumbar fusion x2 History of open reduction and internal fixation (ORIF) procedure (~04/2021) BL Femur Hx of fusion of cervical spine > 10-15 yrs ago, Nn ROM limitations per pt Hx of LASIK Hx of melanoma excision L shoulder Hx of prior ablation treatment B/L LE S/P carpal tunnel release R/L S/P debridement x 2 (post op infection ORIF femur 04/2021) - reason for abx; s/p trauma fall from ladder S/P epidural steroid injection S/P hysterectomy with oophorectomy S/P tonsillectomy [place] teeth extracted Family History Sister Breast cancer Aunt Breast cancer maternal Father Prostate cancer Brother Prostate cancer Family/Other Bladder cancer Heart disease Nephrolithiasis Hypertension Other Slow to wake up after anesthesia Denies family history of Ovarian cancer Myocardial infarction Colorectal cancer Social History Smoking Status: Never smoker Second Hand Exposure: No; Do You Dip or Chew Tobacco: No; Tobacco Cessation Education Requested by Patient: No Hx Alcohol Use: Yes Alcohol type: beer Hx Substance Use: No Preferred Language: Chinese Communication Ability: Effective Visual Impairment: No Limitations Hearing Ability: Use of Hearing Aid Culinary Instructor Required: No Beliefs That Will Affect Care: None marital status: Single Current Living Situation: Family Current Living Situation Comment: daughter and son in law current occupational status: retired Other Information That Helps Us Care for You: No Feels Safe at Home: Yes Childhood Exposure to Second-Hand Smoke: Yes Dental Care, Regularly: No Physical Activity Frequency Comment: restricted with activity due to ms Seatbelt Use: always Sunscreen Use: Yes Assistive Devices: Cane, Glasses and Walker Review of Systems Review of Systems: All systems reviewed & are unremarkable except as noted in HPI & below Physical Exam Constitutional: WD/WN, vitals as above Eyes: EOM intact bilaterally; no conjunctival abnormality ENMT: external ear and nose normal, oropharynx normal Neck: trachea midline, no thyromegaly normal visual inspection Respiratory: normal respiratory effort, lungs clear to auscultation no respiratory distress Cardiovascular: RRR, no murmur, no edema Gastrointestinal (Abdomen): Inspection/Auscultation: abdomen normal to inspection; abdomen not distended Musculoskeletal: no cyanosis or clubbing, extremities motor strength 5/5 Skin: no rashes, warm and dry Neurologic: moves all extremities and awake Psychiatric: Orientation: alert, oriented to person and cooperative Results & Data Results & Data ([facility]) Vital Signs (Past 12 Hours) Vital Signs Temp Pulse Pulse Resp BP Pulse Ox O2 Del Method 03/08/22 14:45 36.8 C 74 18 97/53 L 99 Room Air 03/08/22 14:22 64 14 96/61 L 96 Nasal Cannula 03/08/22 13:50 Nasal Cannula 03/08/22 13:50 36.5 C 69 16 100/61 97 Nasal Cannula 03/08/22 13:30 36.9 C 71 15 108/60 96 Nasal Cannula 03/08/22 13:20 71 12 107/66 93 Room Air 03/08/22 13:10 76 12 123/71 100 Oxymask 03/08/22 13:00 80 12 137/67 100 Oxymask 03/08/22 12:53 36.6 C 94 H 15 141/89 H 100 Oxymask 03/08/22 08:46 36.5 C 78 18 120/73 100 Room Air O2 Flow Rate 03/08/22 14:45 03/08/22 14:22 2 03/08/22 13:50 2 03/08/22 13:50 2 03/08/22 13:30 2 03/08/22 13:20 03/08/22 13:10 6 03/08/22 13:00 6 03/08/22 12:53 6 03/08/22 08:46 PG Care Time/CCT Total # of Minutes Spent Total Time Spent with Patient: Total time spent is greater than 50% in coordination of care (as documented) at patient's floor/unit and/or counseling patient: Coding Level of Care Code 11110 Inpt Consult Level 4 Diagnoses Lumbar stenosis with neurogenic claudication M48.062 Anticoagulant long-term use Z79.01 MS (multiple sclerosis) G35 Prosthetic joint infection T84.50XA Chronic cystitis N30.20 Hypothyroidism E03.9 DVT prophylaxis Z29.9
[2022-03-08] MEDS: traMADol HCL 50 MG TABLET PO PRN ×2 (16:48→21:01)
[2022-03-08] MEDS: ceFAZolin 2000MG 2,000 MG/15 ML SYR IV SCH (18:05)
[2022-03-08] MEDS: DOCUSATE SODIUM/SENNA 50/8.6MG TAB PO SCH (20:56)
[2022-03-08] MEDS: MAGNESIUM OXIDE 400 MG TAB PO SCH (20:56)
[2022-03-08] MEDS: VENLAFAXINE HCL XR 150 MG CAPXR PO SCH (20:57)
[2022-03-08] MEDS: SPIRONOLACTONE 25 MG TAB PO SCH (20:57)
[2022-03-08] MEDS: MIRABEGRON ER 25 MG TAB PO SCH (20:58)
[2022-03-09] MEDS: SODIUM CHLORIDE 0.9% 1000ML 1,000 ML IV SCH (00:50)
[2022-03-09] MEDS: ceFAZolin 2000MG 2,000 MG/15 ML SYR IV SCH (03:00)
[2022-03-09] MEDS: traMADol HCL 50 MG TABLET PO PRN ×3 (03:07→20:37)
[2022-03-09] MEDS: POLYETHYLENE (MIRALAX) 17 GM PACK PO SCH ×3 (06:30→17:03)
[2022-03-09] MEDS: LEVOTHYROXINE SODIUM 112 MCG TABLET PO SCH (06:30)
[2022-03-09 06:54] LABS: Hematocrit (blood only) 28.5 % (34.1-44.9); Hemoglobin 8.9 g/dl (12.0-16.0); Mean Corpuscular Hemoglobin 31.8 pg (25.0-34.0); Mean Corpuscular Hgb Conc 31.2 g/dL (32.0-36.0); Mean Corpuscular Volume 101.8 fL (80.0-100.0); RDW Coefficient of Variation 12.9 % (11.5-14.5); RDW Standard Deviation 48.4 fL (36.4-46.3); White Blood Count 5.23 K/ul (4.8-10.8)
[2022-03-09 07:08] LABS: Mean Platelet Volume 13.1 fL (9.4-12.3); Platelet Count 121 K/uL (130-400)
[2022-03-09 07:27] LABS: BUN Creatinine Ratio 29.4 (10-20); Calcium 7.7 mg/dl (8.5-10.1); Creatinine Clr Calc Pharmacy 54.6 ml/min; Est GFR (African American) 63.6 ml/min; Est GFR (Non-African American) 54.9 ml/min
[2022-03-09] MEDS: FOLIC ACID 1 MG TAB PO SCH (08:14)
[2022-03-09] MEDS: VENLAFAXINE HCL XR 150 MG CAPXR PO SCH ×2 (08:14→16:57)
[2022-03-09] MEDS: ASCORBIC ACID 500 MG TAB PO SCH (08:14)
[2022-03-09] MEDS: CALCIUM 600MG + VIT D 400 IU TAB PO SCH (08:14)
[2022-03-09] MEDS: OXYBUTYNIN CHLORIDE XL 5 MG TABCR PO SCH (08:14)
[2022-03-09] MEDS: dexAMETHasone 6 MG in SYRINGE 0 ML IV SCH (08:32)
[2022-03-09] MEDS ORDERED: NON-FORMULARY MEDICATION (Lactobacillus Combination No.4 [Probiotic] 3 billion cell Capsul PO SCH (09:00)
[2022-03-09] MEDS: AMPHETAMINE ASP/SULF/DEXTRAMPH 10 MG TAB PO SCH (09:21)
--- NOTE | 2022-03-09 09:57 | Orthopedic Progress Note ---
Date of Service March 09, 2022 Assessment & Plan (1) Lumbar stenosis with neurogenic claudication: Plan: At this time we will initiate physical therapy monitor REYNALDO output overly discharge home next day or so. Admission and Anticipated Discharge Date Admission Date: March 08, 2022 Subjective Back pain controlled leg pain markedly improved Physical Exam Physical Exam: Patient is stable in bed. Peers quite comfortable care. Has good strength testing. Results & Data ([facility]) Vital Signs (Past 12 Hours) Vital Signs Temp Pulse Resp BP Pulse Ox O2 Del Method 03/09/22 07:02 36.6 C 75 16 101/66 95 Room Air 03/09/22 03:00 36.5 C 59 L 16 109/70 96 Room Air 03/08/22 23:18 36.6 C 58 L 16 100/59 L 94 Room Air
[2022-03-09] MEDS ORDERED: Nursing to Pharmacy Communication SCH (10:30)
[2022-03-09 11:06] LABS: Basophils # (auto) 0.02 K/uL (0-0.2); Basophils % (auto) 0.4 %; Eosinophils # (auto) 0.04 K/uL (0-0.50); Eosinophils % (auto) 0.8 %; Immature Granulocytes # (auto) 0.01 K/uL (0.00-0.02); Immature Granulocytes % (auto) 0.2 %; Lymphocytes # (auto) 0.93 K/uL (1.2-3.4); Lymphocytes % (auto) 17.8 %; Monocytes # (auto) 0.36 K/uL (0.24-0.82); Monocytes % (auto) 6.9 %; Neutrophils # (auto) 3.87 K/uL (1.4-6.5); Neutrophils % (auto) 73.9 %
[2022-03-09] MEDS: FERROUS SULFATE 325 MG TAB PO SCH (11:51)
--- NOTE | 2022-03-09 14:51 | Hospitalist Progress Note ---
Date of Service March 09, 2022 Assessment & Plan (1) Lumbar stenosis with neurogenic claudication: Plan: S/p posterior decompression and spinal fusion of L2-L3 with Dr. Merrill. EBL was 200 mL. - Post-operative care per primary team - Expected acute blood loss anemia; will give IV Venofer x 2 days. - Resume home anticoagulation when surgically appropriate. (2) Anticoagulant long-term use: Plan: Due to prior DVT/PE in 2016. - Resume Xarelto when appropriate from surgical standpoint. (3) MS (multiple sclerosis): Plan: Hx of. Follows with [facility] neurology per Dr. Tamayo's notes. - Continue home Adderall (due to MS per notes?) - No other inpatient needs (4) Prosthetic joint infection: Plan: Right hip abscess and infected prosthesis. Was on cefazolin and rifampin x 6 weeks, now on chronic cephalexin. - Resume cephalexin today. (5) Chronic cystitis: Plan: - Continue home Myrbetriq and oxybutynin (6) Hypothyroidism: Plan: TSH was 1.2 in 11/2021. No signs/symptoms of hypo-/hyperthyroidism. - Continue home Synthroid 112 mcg (7) DVT prophylaxis: Plan: High-risk patient. Resume home Xarelto when able. Given medical stability, Hospital Medicine team will sign off. Please re-consult with any questions or concerns. Thank you for letting us assist in the care of this patient! Admission and Anticipated Discharge Date Admission Date: March 08, 2022 Subjective Doing well today. Back pain fairly well controlled. No major issues. Reports no fevers/chills, chest pain, shortness of breath, abdominal pain, nausea, or vomiting. Physical Exam Constitutional: WD/WN, vitals as above Eyes: EOM intact bilaterally; no conjunctival abnormality ENMT: external ear and nose normal, oropharynx normal Neck: trachea midline, no thyromegaly normal visual inspection Respiratory: normal respiratory effort, lungs clear to auscultation no respiratory distress Cardiovascular: RRR, no murmur, no edema Gastrointestinal (Abdomen): Inspection/Auscultation: abdomen normal to inspection; abdomen not distended Musculoskeletal: no cyanosis or clubbing, extremities motor strength 5/5 Skin: no rashes, warm and dry Neurologic: moves all extremities and awake Psychiatric: Orientation: alert, oriented to person and cooperative Results & Data Results & Data ([facility]) Vital Signs (Past 12 Hours) Vital Signs Temp Pulse Resp BP Pulse Ox O2 Del Method 03/09/22 11:49 36.6 C 64 16 104/67 93 Room Air 03/09/22 07:02 36.6 C 75 16 101/66 95 Room Air 03/09/22 03:00 36.5 C 59 L 16 109/70 96 Room Air PG Care Time/CCT Total # of Minutes Spent Total Time Spent with Patient: Total time spent is greater than 50% in coordination of care (as documented) at patient's floor/unit and/or counseling patient: Coding Level of Care Code 54944 Subseq Hosp Care Lvl 2 Diagnoses Lumbar stenosis with neurogenic claudication M48.062 Anticoagulant long-term use Z79.01 MS (multiple sclerosis) G35 Prosthetic joint infection T84.50XA Chronic cystitis N30.20 Hypothyroidism E03.9 DVT prophylaxis Z29.9
[2022-03-09] MEDS: IRON SUCROSE 300 MG in SODIUM CHLORIDE 0.9% 250 ML IV SCH (17:12)
[2022-03-09] MEDS: MAGNESIUM OXIDE 400 MG TAB PO SCH (20:34)
[2022-03-09] MEDS: SPIRONOLACTONE 25 MG TAB PO SCH (20:35)
[2022-03-09] MEDS: DOCUSATE SODIUM/SENNA 50/8.6MG TAB PO SCH (20:35)
[2022-03-09] MEDS: MIRABEGRON ER 25 MG TAB PO SCH (20:36)
[2022-03-09] MEDS: LORazepam 0.5 MG TAB PO PRN ×2 (20:44→21:47)
[2022-03-09] MEDS: cephALEXin 500 MG CAP PO SCH (20:44)
[2022-03-10] MEDS: POLYETHYLENE (MIRALAX) 17 GM PACK PO SCH ×5 (00:05→22:29)
[2022-03-10] MEDS: LEVOTHYROXINE SODIUM 112 MCG TABLET PO SCH (06:21)
[2022-03-10] MEDS: traMADol HCL 50 MG TABLET PO PRN ×3 (06:24→20:39)
[2022-03-10] MEDS: ACETAMINOPHEN 500 MG TAB PO PRN (08:16)
[2022-03-10] MEDS: IRON SUCROSE 300 MG in SODIUM CHLORIDE 0.9% 250 ML IV SCH (08:16)
[2022-03-10] MEDS: CALCIUM 600MG + VIT D 400 IU TAB PO SCH (08:17)
[2022-03-10] MEDS: cephALEXin 500 MG CAP PO SCH ×3 (08:17→20:36)
[2022-03-10] MEDS: ASCORBIC ACID 500 MG TAB PO SCH (08:17)
[2022-03-10] MEDS: FOLIC ACID 1 MG TAB PO SCH (08:17)
[2022-03-10] MEDS: VENLAFAXINE HCL XR 150 MG CAPXR PO SCH ×2 (08:17→15:39)
[2022-03-10] MEDS: OXYBUTYNIN CHLORIDE XL 5 MG TABCR PO SCH (08:17)
[2022-03-10] MEDS: dexAMETHasone 6 MG in SYRINGE 0 ML IV SCH (08:18)
[2022-03-10] MEDS: AMPHETAMINE ASP/SULF/DEXTRAMPH 10 MG TAB PO SCH (08:43)
--- NOTE | 2022-03-10 08:49 | Orthopedic Progress Note ---
Date of Service March 10, 2022 Assessment & Plan (1) Lumbar stenosis with neurogenic claudication: Plan: Patient is doing well postop day #2. We will continue with PT OT. We will continue with pain control. She will mobilize with physical therapy her hopes that she is ready for home discharge tomorrow. Admission and Anticipated Discharge Date Admission Date: March 08, 2022 Subjective Patient seen bedside in room 308. She is postoperative day #2 status post removal of hardware L3-4 and L2-3 lumbar decompression and fusion. She states she is doing well today. Her pain is well controlled. She is been up and walking with the nursing staff. She is tolerating p.o. She currently is getting an iron infusion. She denies any other numbness, tingling, or paresthesias. Physical Exam Physical Exam: On exam she is alert and oriented. Her abdomen soft nontender calves are supple nontender. Her dressing is clean dry and intact. Her REYNALDO drain is in place and holding suction she has had 20 cc on the shift and 50 on the previous. Her vital signs are stable. Results & Data ([facility]) Vital Signs (Past 12 Hours) Vital Signs Temp Pulse Pulse Resp BP Pulse Ox O2 Del Method 03/10/22 07:56 37.1 C 68 17 103/64 92 Room Air 03/09/22 22:36 36.7 C 63 16 101/59 L 95 Room Air
[2022-03-10] MEDS: FERROUS SULFATE 325 MG TAB PO SCH (11:34)
[2022-03-10] MEDS: MAGNESIUM OXIDE 400 MG TAB PO SCH (20:35)
[2022-03-10] MEDS: SPIRONOLACTONE 25 MG TAB PO SCH (20:36)
[2022-03-10] MEDS: DOCUSATE SODIUM/SENNA 50/8.6MG TAB PO SCH (20:37)
[2022-03-10] MEDS: MIRABEGRON ER 25 MG TAB PO SCH (20:37)
[2022-03-10] MEDS: LORazepam 0.5 MG TAB PO PRN ×2 (20:39→21:58)
[2022-03-11] MEDS: LEVOTHYROXINE SODIUM 112 MCG TABLET PO SCH (06:37)
[2022-03-11] MEDS: POLYETHYLENE (MIRALAX) 17 GM PACK PO SCH ×2 (06:38→11:45)
[2022-03-11] MEDS: AMPHETAMINE ASP/SULF/DEXTRAMPH 10 MG TAB PO SCH (08:41)
[2022-03-11] MEDS: cephALEXin 500 MG CAP PO SCH ×2 (08:41→13:20)
[2022-03-11] MEDS: dexAMETHasone 6 MG in SYRINGE 0 ML IV SCH (08:41)
[2022-03-11] MEDS: OXYBUTYNIN CHLORIDE XL 5 MG TABCR PO SCH (08:42)
[2022-03-11] MEDS: CALCIUM 600MG + VIT D 400 IU TAB PO SCH (08:42)
[2022-03-11] MEDS: VENLAFAXINE HCL XR 150 MG CAPXR PO SCH (08:42)
[2022-03-11] MEDS: ASCORBIC ACID 500 MG TAB PO SCH (08:42)
[2022-03-11] MEDS: FOLIC ACID 1 MG TAB PO SCH (08:42)
[2022-03-11] MEDS: traMADol HCL 50 MG TABLET PO PRN (08:49)
[2022-03-11 11:12] VITALS: TEMP 98.8; O2SAT 95
[2022-03-11] MEDS: FERROUS SULFATE 325 MG TAB PO SCH (11:45)
[2022-03-11] MEDS: ACETAMINOPHEN 500 MG TAB PO PRN (11:49)
--- NOTE | 2022-03-11 12:10 | Discharge Summary ---
Date of Service March 11, 2022 Admission HPI Per Admitting Provider This is a 72-year-old female known to me the presents with chronic persistent back and leg pain. After failing since course of nonoperative care she is here for surgical invention. Principal Diagnosis Lumbar spinal stenosis with neurogenic claudication Discharge Data Allergies Allergy/AdvReac Type Severity Reaction Status Date / Time tetracycline Allergy Severe Anaphylaxis Verified 03/08/22 08:50 morphine Allergy Intermediate Rash, Verified 03/08/22 08:50 itching pregabalin [From Lyrica] Allergy Intermediate Feet Verified 03/08/22 08:50 swelling oxycodone Allergy Mild Rash, Verified 03/08/22 08:50 itching loratadine Allergy Unknown Unknown Verified 03/08/22 08:50 ropinirole Allergy Unknown Unknown Verified 03/08/22 08:50 Sulfa (Sulfonamide Allergy Unknown UNKNOWN Verified 03/08/22 08:50 Antibiotics) Consultations 03/08/22 14:02 Consult Hospitalist Routine Procedures Performed Operation Date: 03/08/22 10:25 Actual Procedures p L2-3 Decompression and Fusion, Spinal Cord Monitoring(Not Applicable) - Dalton Merrill DO s L3-L4 Hardware Removal,(Not Applicable) - Dalton Merrill DO Ordered Studies 03/08/22 10:20 FL lumbar spine 2-3V Routine Hospital Course (1) Lumbar stenosis with neurogenic claudication: Patient underwent lumbar decompression fusion, she was taken to orthopedic for postoperative. Postop day 1 she was up and ambulating progress postop day #2 and 3. REYNALDO drain decreased probably. Excellent strength testing. Separately discharged home. Discharge orders instructions from the chart for further review. Total Time Total Time Spent Total Time Spent (In Minutes): 20 minutes Discharge Plan Discharge Items Patient Disposition: Home - Self-Care Reason For Visit: Spinal Stenosis of Lumbar Region with Radiculopath Discharge Diagnosis: Lumbar spinal stenosis with neurogenic claudication Activity: As commented below Non-emergency contact: Primary Care Provider Call non-emergency contact if: you have any medication questions Follow-up/Referrals: Lalo Tamayo MD [Primary Care Provider] - Diet: Regular Addtl Attending Provider Instructions: ACTIVITY RECOMMENDATIONS: SELF CARE INSTRUCTIONS AFTER THORACIC/LUMBAR FUSIONS 1. You may walk to your tolerance. It is good exercise for your legs and back. Expect some back and intermittent leg aches and pains. 2. You may perform "counter-top" level activities (make a sandwich, riccardo with a project, etc.). 3. No bending or lifting of more than 10 pounds or back twisting of any nature (roll like a log when turning in bed). 4. You may ride in a car for 20-30 minutes at a time. No driving until after your first visit with your doctor. 5. Frequent changes of position and restricting sitting to 30 minutes at a time will help limit the amount of back spasms and stiffness you may experience. 6. You may discontinue the use of ambulatory aids (cane, crutches, etc.) once your strength and confidence allow. 7. You may moving van driver the shower and let water strike your incision when you arrive home at least once daily. Do not take a tub bath, sit in a hot tub or go into a swimming pool until after your first recheck in the office. SPECIAL CARE INSTRUCTIONS: VERY IMPORTANT TO READ AND REVIEW A. Your surgical incision has been closed with a cosmetic suture under the skin that will dissolve in about 6 weeks. In 14 days, you can use a pair of clean scissors and cut the suture that is left outside of the skin at the ends of your incision. 1. The small skin tapes can be removed 7 days after surgery if they have not fallen off by that point. 2. You may keep the wound open to air as much as possible to promote healing after post-op day number 5 unless told otherwise by your doctor. 3. If you think the wound looks like it is becoming infected (redness or worsening drainage) and/or you are experiencing fever, chill or worsening back pain and muscle spasms, contact the office so that we may evaluate you as soon as possible. B. Complications are uncommon, but please contact us if you have any signs or symptoms of: 1. wound infection (fever higher than 102.5 degrees F, redness, separation of wound, drainage, or increasing pain from the incision) 2. blood clots in legs (pain, swelling, redness and warmth in legs) 3. urinary tract infection (fever higher than 102.5 degrees F, burning upon urination or increased frequency of urination) 4. nerve problems (inability to walk on your toes or heels, numbness, loss of bowel or bladder control) 5. any other symptoms that concern you C. Please call the office at if you have any concerns or questions about your operation or recovery. D. No smoking! Smoking drastically decreases the chance of a solid fusion. E. Do not take any anti-inflammatory medications (Indocin, Advil, Motrin, Aspirin, Naprosyn, etc.) as these may inhibit the chance of a solid fusion. Tylenol is okay to take for pain. MANAGING PAIN AFTER SPINAL SURGERY 1. Narcotic medication is intended for short-term use and will be provided for surgical pain. Surgical pain usually lasts for a period of 4-6 weeks. Narcotic medication includes Percocet, Vicodin, Darvocet, Tylenol #3 or Lortab. 2. Longer-term pain is more appropriately treated with non-narcotic medication such as Tylenol ES. 3. Muscle spasm is not appropriately treated with narcotics. Muscle relaxers such as Soma, Flexeril or Skelaxin can be used along with Tylenol ES. 4. Remember that we all live with some "aches and pains". This is not unusual or uncommon after an injury or as we get older. a. Back pain is expected and may include muscle spasms for 4 to 6 weeks after surgery. The pain should gradually improve. If the pain worsens for no apparent reason, please contact the office. b. Intermittent leg pain may also be experienced and should not be concerned about unless it worsens for no apparent reason. If so, please contact the office. 5. We will provide appropriate medication within the normal guidelines of their prescribed use. We will also be very cautious and aware of potential abuse and extended duration of patients' medication needs. a. Pain medications are for your comfort and to assist with sleep and rest so that the tissue can heal. They are not provided in order to return to normal activity and should not be used through the day. To do so or worsening pain at night can result from ongoing tissue damage and development of tolerance to the prescribed medicine. 6. Please allow 2-3 days to process refills. Prescriptions will not be mailed but must be picked up at the office. FOLLOW UP VISIT: Keep your scheduled follow-up appointment. Any questions, please call the office at . Pending Studies at Discharge: No Stand-Alone Forms: [facility] [email or web address], Smoking Cessation Medications and DC Order Prescriptions: New hydrocodone-acetaminophen 5-325 mg tablet 1 tab PO Q6H PRN (Reason: pain) Qty: 30 0RF Rx Instructions: 1 tab PO PRN; tramadol 50 mg tablet 50 mg PO Q6H PRN (Reason: pain, moderate) Qty: 30 0RF Continued estradiol 0.01 % (0.1 mg/gram) cream 1 g PV 2XWK Qty: 42.5 1RF Rx Instructions: Insert 1 gram vaginally twice weekly. (DME) fountain syringes applicator Misc See Rx Instructions .Route Qty: 1 4RF Rx Instructions: As directed- use for b12 injections dextroamphetamine-amphetamine [Adderall XR] 30 mg capsule,extended release 24hr 30 mg PO QAM Qty: 90 0RF (DME) BD Insulin Syringe 1 mL 25 x 1" syringe See Rx Instructions .Route Qty: 10 0RF Rx Instructions: Use for monthly B12 injections levothyroxine 112 mcg tablet See Rx Instructions .ROUTE .COMPLEX Qty: 90 1RF Dose Instruction: TAKE 1 TABLET BY MOUTH IN THE MORNING Rx Instructions: TAKE 1 TABLET BY MOUTH IN THE MORNING ergocalciferol (vitamin D2) 1,250 mcg (50,000 unit) capsule 50,000 unit PO Q14D Qty: 6 7RF Rx Instructions: 50,000 units PO every other week ; ondansetron HCl 4 mg tablet See Rx Instructions .ROUTE .COMPLEX Qty: 120 1RF Dose Instruction: TAKE 1 TABLET BY MOUTH EVERY 6 HOURS NEEDED FOR NAUSEA AND VOMITING Rx Instructions: TAKE 1 TABLET BY MOUTH EVERY 6 HOURS NEEDED FOR NAUSEA AND VOMITING pantoprazole 40 mg tablet,delayed release (DR/EC) See Rx Instructions .ROUTE .COMPLEX Qty: 180 1RF Dose Instruction: TAKE 1 TABLET BY MOUTH TWICE A DAY Rx Instructions: TAKE 1 TABLET BY MOUTH TWICE A DAY venlafaxine 150 mg tablet extended release 24 hr 150 mg PO BID Qty: 60 3RF Xarelto 20 mg tablet 20 mg PO PM Qty: 90 3RF Rx Instructions: must administer with evening meal cephalexin 500 mg capsule 500 mg PO TID Qty: 270 0RF ascorbic acid (vitamin C) 500 mg tablet 500 mg PO QAM calcium carbonate-vitamin D3 600 mg(1,500mg) -400 unit tablet 2 tab PO QAM cyanocobalamin (vitamin B-12) 1,000 mcg/mL solution 100 mcg SQ MONTHLY Qty: 3 5RF meclizine 25 mg tablet 25 mg PO QAM PRN (Reason: Vertigo) oxybutynin chloride [Ditropan XL] 5 mg tablet extended release 24hr 5 mg PO QAM ferrous sulfate [iron] 325 mg (65 mg iron) Tablet 325 mg PO QDL magnesium 250 mg Tablet 250 mg PO HS spironolactone 50 mg Tablet 50 mg PO PM Fish Oil 100-160-1,000 mg Capsule 1 cap PO QAM Hold Instructions: per pt clonazepam 1 mg tablet 1.5 mg PO HS Probiotic 3 billion cell Capsule 3,000 mmu cells PO QAM folic acid 1 mg tablet 1 mg PO QAM Myrbetriq 50 mg tablet extended release 24 hr 50 mg PO HS Discharge Orders: Discharge Order (Routine); Ordered 03/11/22 Ordered By: Dalton Merrill Admission Data Admit Date/Time: 03/08/22 12:41 Attending Provider: Dalton Merrill Admit Provider: Dalton Merrill Primary Care Provider: Lalo Tamayo Other Providers: Mohan Akers ; Bucky Sherman
[2022-03-11 13:17] VITALS: BP 118/76; PULSE 66
== END 2022-03-11 14:20 | disposition home or self-care (01) | DRG 454 ==
LOC: ASU 08:23 → 3E 12:41